=== PATIENT | male | born 1945 | race Caucasian/White ===

== ENCOUNTER 2024-04-19 10:29 | Inpatient (IN) ==
--- NOTE | 2024-04-19 10:46 | Emergency Department Note ---
Impression & Plan Complete heart block, S/P AVR (aortic valve replacement), Syncope ED Provider Note NAME: RADHA HUANG AGE: 79 SEX: M : 1945 ARRIVES VIA: Walk-In INFORMANT: Patient, Family ED PROVIDER(S): Fortunato Pham MD CHIEF COMPLAINT: Syncope MEDICAL DECISION MAKING: Patient presents acutely to B1. The patient was initially able to converse but then had periods of loss of consciousness with perhaps even brief episodes of apnea. Patient did have oxygen applied and a BVM was obtained but the patient's brief periods were brief in nature and the patient was able to breathe on his own. The patient would intermittently come in and out of consciousness and in doing so blood work was ordered IV ordered and and lieu of getting medications that were initially ordered which include atropine calcium and glucagon I did ask that the patient receives a push dose epinephrine and if unable to obtain an IV to get an EpiPen. Patient subsequently did have an IV established. I did initiate external pacemaking as I was directing the resuscitation with staff/nursing initially the patient did have difficulty with capture secondary to diaphoresis and hair around the chest. This was shaved new pads were placed and the patient had subsequent capture and after receiving this in addition to the epinephrine IV the patient did have improvement heart rate and blood pressure. Patient did have some vomiting the patient was rolled to his left side. Patient was beginning to feel improvement. I did send the patient's initial EKG which showed a heart rate of 17 with likely complete heart block to Dr. Dominguez. I subsequently did speak to him the patient was more stabilized and discussed further management. He recommended initiating a heart alert to activate the Document Analyst team for emergency pacemaker. I did convey this to the family as well as the patient. Patient was subsequently taken to the Document Analyst. I subsequently spoke with the on-call hospitalist Dr. Robbins and the patient was admitted to the medicine service. Blood work does show a white count of 14 with hemoglobin 13.5. Platelet count is unremarkable. The patient's kidney function with creatinine 1.69. Initial troponin of 200. TSH elevated but free T4 normal. Lyme negative. Critical Care: I have personally spent 75 minutes of critical care time in direct management of this patient. This includes bedside care, interpretation of diagnostic studies, and testing, discussion with consultants, patient, and family members, and other require inpatient management activities. This 75 minutes is in excess of all separately billable procedures. Procedures: TRANSCUTANEOUS PACEMAKER PROCEDURE NOTE: Transcutaneous Pacemaker Performed by: Dr. Pham Indication: Complete heart block [place] Protocol: a time out was performed and the correct patient and site were verified Consent: [Critical Intervention-implied Procedure: The patient was noted to be in a cardiac rhythm requiring pacing. External transcutaneous pacing electrode pads were applied. Pacing electrical amplitude was increased to the point of capture, verified by resulting QRS complex. Hemodynamic response to pacing was monitored. Complications: None Discussion w/ other healthcare providers: Dr. Dominguez interventional cardiology Dr. Robbins inpatient medicine service Prior /Outside records reviewed: None Differential diagnosis: Vasovagal event, dehydration, infection, hypoglycemia, electrolyte abnormalities, arrhythmia, pulmonary embolism, seizure among others were considered. Diagnostics, as interpreted by me: ECG: Bradycardia ventricular rate of 17, wide QRS, likely third-degree heart block. Cardiac monitoring: An order was placed for continuous cardiac monitoring. The monitor shows a rate of 22 with rhythm. Patient was placed on pulse oximetry Medical decision rules: None Imaging studies: I informally interpreted the patient's chest x-ray does not show obvious pneumonia or pneumothorax with formal report to follow. HPI: Patient presents due to concern for an episode of syncope. The patient acutely felt "shitty" and passed out for a period of time. Patient thus presented here for further evaluation treatment. The patient does have a prior history of aortic valve repair as well as double bypass. The patient denies any current chest pains or shortness of breath. Patient reportedly developed nausea but no vomiting. No falls or trauma. The patient did not wreck his vehicle as the was able to park it. PAST MEDICAL HISTORY: See Below PAST SURGICAL HISTORY: See Below SOCIAL HISTORY: See Below HOME MEDICATIONS: See Below ALLERGIES: See Below VITALS: See Below PHYSICAL EXAMINATION: GENERAL: Ill in appearance, diaphoretic, wearing glasses. EYE EXAM: Normal conjunctiva. PERRL, no anisocoria and EOM's grossly intact w/o pain. OROPHARYNX: Moist mucus membranes, grossly normal dentition. NECK: Trachea midline, no stridor. LUNGS: Clear to auscultation. Normal chest wall mechanics. HEART: Bradycardic, no MRG. ABDOMEN: Abdomen soft, non-tender, no masses, no rebound or guarding. BACK: No CVA TTP. SKIN: No rashes and no bruising. UPPER EXTREMITIES: Upper extremities are grossly normal. LOWER EXTREMITIES: Grossly normal, no edema. NEURO EXAM: A&O x3, cranial nerves II-XII grossly intact, normal speech, moves all 4 extremities. Past Med/Surg History Problem List (Updated 04/19/24 @ 16:44 by Fortunato Pham MD) Syncope (Acute) S/P AVR (aortic valve replacement) (Acute) Peripheral arterial occlusive disease Benign essential hypertension Atherogenic dyslipidemia Diabetes Coronary artery disease Complete heart block (Acute) Social History Smoking Status: Former smoker Tobacco Type: Cigarettes Hx Alcohol Use: Yes Alcohol type: beer Hx Substance Use: No Preferred Language: Latvian Communication Ability: Effective Steamfitter Required: No Beliefs That Will Affect Care: None Current Living Situation: Spouse Feels Safe at Home: Yes Assistive Devices: Cane, Denture - Upper, Denture - Lower, Glasses and Walker Allergies Allergies Allergy/AdvReac Type Severity Reaction Status Date / Time Unable to Assess Allergy Unverified 04/19/24 11:42 Home Meds Home Medications Medication Instructions Recorded Confirmed clopidogrel 75 mg tablet 75 mg PO DAILY 04/19/24 04/19/24 glipizide 10 mg tablet, extended 10 mg PO BID 04/19/24 04/19/24 release 24 hr metformin 1,000 mg tablet 1,000 mg PO BID 04/19/24 04/19/24 metoprolol succinate 25 mg 25 mg PO BID 04/19/24 04/19/24 tablet,extended release 24 hr pioglitazone 30 mg tablet 30 mg PO DAILY 04/19/24 04/19/24 rosuvastatin 20 mg tablet 20 mg PO DAILY 04/19/24 04/19/24 Results & Data (ED) Vital Signs Vital Signs - 24 hr 04/19/24 10:37 04/19/24 10:57 04/19/24 11:09 Pulse Rate 95 H 90 80 Pulse Rate [Right Finger] Pulse Rate from SpO2 Sensor Pulse Rhythm Respiratory Rate 20 16 Respiratory Effort / Characteristics Non-Labored Spontaneous Respiratory Depth Normal Blood Pressure 138/98 Blood Pressure Mean 111 Pulse Oximetry 99 94 Oxygen Delivery Method Room Air Oxygen Flow Rate Sepsis Recent Fever Within 48 Hours No Sepsis New/Unexplained Change in Mental Status N/A Sepsis Action Taken by Nursing No Action Required Oxygen Flow Rate - Titration Pulse Oximetry Post Tiitration 04/19/24 11:09 04/19/24 11:10 04/19/24 11:17 Pulse Rate 80 80 Pulse Rate [Right Finger] 80 Pulse Rate from SpO2 Sensor Pulse Rhythm Respiratory Rate 18 20 16 Respiratory Effort / Characteristics Respiratory Depth Blood Pressure 116/52 L 112/41 L Blood Pressure Mean 73 71 Pulse Oximetry 95 100 100 Oxygen Delivery Method Nasal Cannula Nasal Cannula Nasal Cannula Oxygen Flow Rate 4 6 4 Sepsis Recent Fever Within 48 Hours Sepsis New/Unexplained Change in Mental Status Sepsis Action Taken by Nursing Oxygen Flow Rate - Titration Pulse Oximetry Post Tiitration 04/19/24 11:27 04/19/24 11:28 04/19/24 11:29 Pulse Rate 80 Pulse Rate [Right Finger] Pulse Rate from SpO2 Sensor Pulse Rhythm Irregular Respiratory Rate 16 Respiratory Effort / Characteristics Respiratory Depth Blood Pressure 118/45 L Blood Pressure Mean 76 Pulse Oximetry 100 100 Oxygen Delivery Method Nasal Cannula Nasal Cannula Oxygen Flow Rate 4 6 Sepsis Recent Fever Within 48 Hours Sepsis New/Unexplained Change in Mental Status Sepsis Action Taken by Nursing Oxygen Flow Rate - Titration 4 Pulse Oximetry Post Tiitration 100 04/19/24 11:36 Pulse Rate 80 Pulse Rate [Right Finger] Pulse Rate from SpO2 Sensor 28 L Pulse Rhythm Respiratory Rate 18 Respiratory Effort / Characteristics Respiratory Depth Blood Pressure 141/70 H Blood Pressure Mean 93 Pulse Oximetry 100 Oxygen Delivery Method Nasal Cannula Oxygen Flow Rate 4 Sepsis Recent Fever Within 48 Hours Sepsis New/Unexplained Change in Mental Status Sepsis Action Taken by Nursing Oxygen Flow Rate - Titration Pulse Oximetry Post Tiitration Home Medications Current Medication List: was personally reviewed by me Laboratory Data Attestation: I reviewed the patient's lab results. 04/19/24 11:15 04/19/24 11:37 Lab Results 04/19/24 04/19/24 04/19/24 Range/Units 10:48 11:14 11:15 WBC 14.50 H (4.8-10.8) K/ul RBC 4.52 L (4.70-6.10) M/uL Hgb 13.5 L (14.0-18.0) g/dl Hct 42.1 (42.0-52.0) % MCV 93.1 (80.0-100.0) fL MCH 29.9 (25.0-34.0) pg MCHC 32.1 (32.0-36.0) g/dL RDW Std Deviation 43.8 (36.4-46.3) fL RDW Coeff of Carol 12.8 (11.5-14.5) % Plt Count 239 (130-400) K/uL MPV 10.7 (9.4-12.4) fL Immature Gran % (Auto) 0.8 % Neut % (Auto) 42.4 % Lymph % (Auto) 48.3 % [place] % (Auto) 6.6 % Eos % (Auto) 1.7 % Baso % (Auto) 0.2 % Neut # (Auto) 6.15 (1.40-6.50) K/uL Lymph # (Auto) 7.00 H (1.20-3.40) K/uL [place] # (Auto) 0.96 H (0.11-0.59) K/uL Eos # (Auto) 0.24 (0.00-0.50) K/uL Baso # (Auto) 0.03 (0.00-0.20) K/uL Immature Gran # (Auto) 0.12 (0.01-0.20) K/uL PT (9.0-12.0) Seconds INR (0.9-1.1) APTT (21-31) Seconds PTT Ratio Sodium (136-145) mmol/L Potassium (3.5-5.1) mmol/L Chloride (98-107) mmol/L Carbon Dioxide (21-32) mmol/L Anion Gap (3-11) BUN (6-23) mg/dl Creatinine (0.6-1.4) mg/dl Est Cr Clr Drug Dosing ml/min eGFR BUN/Creatinine Ratio (10-20) Glucose (70-99(Fasting)) mg/dl POC Glucose 245 H 247 H (70-99) mg/dl Calcium (8.6-10.3) mg/dl Phosphorus (2.5-4.9) mg/dl Magnesium (1.7-2.4) mg/dl Total Bilirubin (0.2-1.0) mg/dl AST (13-39) U/L ALT (7-52) U/L Alkaline Phosphatase (34-104) U/L Troponin I High Sens (0-20) pg/ml Total Protein (6.0-8.3) gm/dl Albumin (3.4-5.0) gm/dl Globulin (2.5-4.0) gm/dl Albumin/Globulin Ratio (0.9-2) TSH (0.300-4.500) uIu/ml Free T4 (0.61-1.60) ng/dl Lyme Disease Screen (Negative) 04/19/24 Range/Units 11:37 WBC (4.8-10.8) K/ul RBC (4.70-6.10) M/uL Hgb (14.0-18.0) g/dl Hct (42.0-52.0) % MCV (80.0-100.0) fL MCH (25.0-34.0) pg MCHC (32.0-36.0) g/dL RDW Std Deviation (36.4-46.3) fL RDW Coeff of Carol (11.5-14.5) % Plt Count (130-400) K/uL MPV (9.4-12.4) fL Immature Gran % (Auto) % Neut % (Auto) % Lymph % (Auto) % [place] % (Auto) % Eos % (Auto) % Baso % (Auto) % Neut # (Auto) (1.40-6.50) K/uL Lymph # (Auto) (1.20-3.40) K/uL [place] # (Auto) (0.11-0.59) K/uL Eos # (Auto) (0.00-0.50) K/uL Baso # (Auto) (0.00-0.20) K/uL Immature Gran # (Auto) (0.01-0.20) K/uL PT 11.4 (9.0-12.0) Seconds INR 1.1 (0.9-1.1) APTT 25 (21-31) Seconds PTT Ratio 0.9 Sodium 138 (136-145) mmol/L Potassium 4.5 (3.5-5.1) mmol/L Chloride 105 (98-107) mmol/L Carbon Dioxide 24 (21-32) mmol/L Anion Gap 9 (3-11) BUN 38 H (6-23) mg/dl Creatinine 1.69 H (0.6-1.4) mg/dl Est Cr Clr Drug Dosing 39.7 ml/min eGFR 41.30 BUN/Creatinine Ratio 22.5 H (10-20) Glucose 296 H (70-99(Fasting)) mg/dl POC Glucose (70-99) mg/dl Calcium 9.7 (8.6-10.3) mg/dl Phosphorus 4.2 (2.5-4.9) mg/dl Magnesium 2.8 H (1.7-2.4) mg/dl Total Bilirubin 0.4 (0.2-1.0) mg/dl AST 26 (13-39) U/L ALT 29 (7-52) U/L Alkaline Phosphatase 71 (34-104) U/L Troponin I High Sens 206.0 H* (0-20) pg/ml Total Protein 6.8 (6.0-8.3) gm/dl Albumin 4.3 (3.4-5.0) gm/dl Globulin 2.5 (2.5-4.0) gm/dl Albumin/Globulin Ratio 1.7 (0.9-2) TSH 10.637 H (0.300-4.500) uIu/ml Free T4 0.92 (0.61-1.60) ng/dl Lyme Disease Screen Negative (Negative) Administered Medications Lactated Ringer's (Lr) 1,000 mls @ 15 mls/hr IV .Q24H [facility] Stop: 04/22/24 08:39 Last Admin: 04/19/24 14:31 Dose: Not Given Documented By: ES Discontinued Medications Atropine Sulfate (Atropine Sulfate 0.1 Mg/Ml 10ml Syr) 1 mg IV NOW STA Stop: 04/19/24 10:50 Last Admin: 04/19/24 13:26 Dose: Not Given Documented By: ES Fentanyl Citrate (Fentanyl Citrate Pf 100 Mcg/2 Ml Vial) Confirm Administered Dose 100 mcg .ROUTE .STK-MED ONE Stop: 04/19/24 11:33 Last Increment: 04/19/24 12:39 Dose: 25 mcg Documented By: GERTRUDE Sodium Chloride (Nss) 500 mls @ 999 mls/hr IV .Q31M [facility] Stop: 04/19/24 11:30 Last Infusion: 04/19/24 11:23 Dose: Infused Documented By: [facility] Admin: 04/19/24 11:06 Dose: 999 mls/hr Documented By: [facility] Glucagon 5 mg/ Syringe 5 mls @ 1 mls/min IV NOW ONE Stop: 04/19/24 10:53 Last Admin: 04/19/24 13:27 Dose: Not Given Documented By: ANGELA Calcium Gluconate () 1,000 mg in 60 mls @ 240 mls/hr IV NOW STA Stop: 04/19/24 11:03 Last Infusion: 04/19/24 11:15 Dose: Infused Documented By: [facility] Admin: 04/19/24 11:00 Dose: 240 mls/hr Documented By: [facility] Midazolam HCl (Midazolam Hcl 1 Mg/Ml 2ml Vial) Confirm Administered Dose 2 mg .ROUTE .STK-MED ONE Stop: 04/19/24 11:33 Last Increment: 04/19/24 12:39 Dose: 1 mg Documented By: Bull Miscellaneous (Rapid Sequence Induction Bag) Confirm Administered Dose 1 each N/A .STK-MED ONE Stop: 04/19/24 10:54 Last Admin: 04/19/24 13:27 Dose: Not Given Documented By: ANGELA Reyes ([facility] Protocol For Hyperglycemia) 1 each N/A ACHS [facility] Stop: 04/21/24 16:29 Last Admin: 04/19/24 14:31 Dose: Not Given Documented By: ANGELA Ondansetron HCl (Ondansetron Inj 2 Mg/Ml 2 Ml Vial) Confirm Administered Dose 4 mg .ROUTE .STK-MED ONE Stop: 04/19/24 10:58 Last Admin: 04/19/24 10:58 Dose: 4 mg Documented By: [facility] [place] [facility] Imaging Data Radiologist's Impression: Chest X-Ray 04/19/24 11:28 XR chest 1V portable CLINICAL HISTORY: syncope TECHNIQUE: Single frontal radiograph of the chest was obtained. Comparison: None available at the time of this dictation. FINDINGS: Median sternotomy wires are unchanged. Atrial appendage clip is seen. Cardiomegaly is noted. The aortic arch is calcified. The lungs are clear. No evidence of pleural effusion or pneumothorax. IMPRESSION: No acute chest disease. Cardiomegaly is noted. ACT 112: Negative or not required by law. Electronically signed by: aMt Stratton M.D. 04/19/2024 11:50 AM Discharge Plan Visit Data Chief Complaint: Syncope Stated Complaint: POSSIBLE LOW BLOOD SUGAR, PASSED OUT, VISION ISSUE ED Provider: Fortunato Pham Discharge Problem: Complete heart block, S/P AVR (aortic valve replacement), Syncope Patient Disposition: Admitted As Inpatient Discharge Instructions Interventions: ED Discharge Assessment Last Done: 04/19/24 11:59 Discharge Problem: Syncope Qualifiers: Syncope type: unspecified Qualified Code(s): R55 - Syncope and collapse
[2024-04-19] MEDS: ONDANSETRON INJ 2 MG/ML 2 ML VIAL ONE (10:58)
[2024-04-19] MEDS: CALCIUM GLUCONATE 1,000 MG/60 ML BAG IV STA (11:00)
[2024-04-19] MEDS: SODIUM CHLORIDE 0.9% 500 ML IV SCH (11:06)
[2024-04-19 11:28] LABS: Hematocrit (blood only) 42.1 % (42.0-52.0); Hemoglobin 13.5 g/dl (14.0-18.0); Mean Corpuscular Hemoglobin 29.9 pg (25.0-34.0); Mean Corpuscular Hgb Conc 32.1 g/dL (32.0-36.0); Mean Corpuscular Volume 93.1 fL (80.0-100.0); Mean Platelet Volume 10.7 fL (9.4-12.4); Platelet Count 239 K/uL (130-400); RDW Coefficient of Variation 12.8 % (11.5-14.5); RDW Standard Deviation 43.8 fL (36.4-46.3); Red Blood Count 4.52 M/uL (4.70-6.10)
--- NOTE | 2024-04-19 11:52 | XRay Report ---
XR chest 1V portable CLINICAL HISTORY: syncope TECHNIQUE: Single frontal radiograph of the chest was obtained. Comparison: None available at the time of this dictation. FINDINGS: Median sternotomy wires are unchanged. Atrial appendage clip is seen. Cardiomegaly is noted. The aort ic arch is calcified. The lungs are clear. No evidence of pleural effusion or pneumothorax. IMPRESSION: No acute chest disease. Cardiomegaly is noted. ACT 112: Negative or not required by law. Electronically signed by: Mat Stratton M.D. 04/19/2024 11:50 AM
[2024-04-19 12:00] LABS: Basophils # (auto) 0.03 K/uL (0.00-0.20); Basophils % (auto) 0.2 %; Eosinophils # (auto) 0.24 K/uL (0.00-0.50); Eosinophils % (auto) 1.7 %; Immature Granulocytes # (auto) 0.12 K/uL (0.01-0.20); Immature Granulocytes % (auto) 0.8 %; Lymphocytes % (auto) 48.3 %; Monocytes # (auto) 0.96 K/uL (0.11-0.59); Monocytes % (auto) 6.6 %; Neutrophils # (auto) 6.15 K/uL (1.40-6.50); Neutrophils % (auto) 42.4 %
[2024-04-19 12:08] LABS: Albumin Globulin Ratio 1.7 (0.9-2); Albumin Level 4.3 gm/dl (3.4-5.0); BUN Creatinine Ratio 22.5 (10-20); Bilirubin,Total 0.4 mg/dl (0.2-1.0); Calcium 9.7 mg/dl (8.6-10.3); Creatinine Clr Calc Pharmacy 39.7 ml/min; Globulin 2.5 gm/dl (2.5-4.0); Magnesium 2.8 mg/dl (1.7-2.4); Phosphorus 4.2 mg/dl (2.5-4.9); Potassium 4.5 mmol/L (3.5-5.1); Total Protein 6.8 gm/dl (6.0-8.3)
[2024-04-19 12:21] LABS: INR 1.1 (0.9-1.1); Partial Thromboplastin Ratio 0.9; Partial Thromboplastin Time 25 Seconds (21-31); Prothrombin Time 11.4 Seconds (9.0-12.0)
[2024-04-19 12:24] LABS: Thyroid Stimulating Hormone 10.637 uIu/ml (0.300-4.500)
--- NOTE | 2024-04-19 12:24 | History & Physical Report ---
Date of Service April 19, 2024 Assessment & Plan (1) Complete heart block: Plan: Patient has complete heart block on EKG with a heart rate of about 17. Taken emergently to Outside Plant Technician for temporary pacemaker. Unclear whether coronary arteries will be evaluated that time. Lyme screen was negative (2) Coronary artery disease: Plan: Patient has a history of recent revascularization. Typically taking Plavix metoprolol Takes rosuvastatin for risk factor reduction. Obviously metoprolol be held Plavix will be continued pending cardiology evaluation. Rosuvastatin will be continued (3) Diabetes: Plan: Patient will have his glipizide and pioglitazone held. Will be on insulin sliding scale. He is on a clear liquid diet at this point time till stability is reconciled. Plan Patient will be on heparin for DVT prevention at this time as were not clear what his renal function will do after his brief period of severely reduced heart rate. Patient is a full code History of Present Illness Primary Care Provider: Del Jackson Patient presents with a concern for syncope and he actually lost consciousness briefly in emergency department associated with a brief period of apnea and incontinence of stool. Patient reportedly was feeling poorly and he asked his family to drive him to the hospital where he may have passed out along the way. He has recently had a CABG x 2 and bioprosthetic arctic valve repair at [facility] in August 2023. He follows with Dr. Sahu at [facility]. Currently the patient was revived with an amp of epinephrine. He says he feels better. He denies having any chest pressure or squeezing during the event. He can recall the event and said that his vision was becoming Dim prior to it occurring. The patient is in complete heart block in the emergency department and was taken emergently to the Outside Plant Technician Patient is tentatively slated to be ICU admission for temporary pacemaker. Allergies Allergy/AdvReac Type Severity Reaction Status Date / Time No Known Allergies Allergy Unverified 04/19/24 18:55 Home Medications Medication Instructions Recorded Confirmed Type clopidogrel 75 mg tablet 75 mg PO DAILY 04/19/24 04/19/24 History glipizide 10 mg tablet, extended 10 mg PO BID 04/19/24 04/19/24 History release 24 hr metformin 1,000 mg tablet 1,000 mg PO BID 04/19/24 04/19/24 History metoprolol succinate 25 mg 25 mg PO BID 04/19/24 04/19/24 History tablet,extended release 24 hr pioglitazone 30 mg tablet 30 mg PO DAILY 04/19/24 04/19/24 History rosuvastatin 20 mg tablet 20 mg PO DAILY 04/19/24 04/19/24 History Past Med/Surg History Problem List (Updated 04/20/24 @ 11:56 by Chemo Alvarado MD) CAD (coronary artery disease) Syncope (Acute) S/P AVR (aortic valve replacement) (Acute) Peripheral arterial occlusive disease Benign essential hypertension Atherogenic dyslipidemia Diabetes Coronary artery disease Complete heart block (Acute) Social History Smoking Status: Former smoker Tobacco Type: Cigarettes Hx Alcohol Use: Yes Alcohol type: beer Hx Substance Use: No Preferred Language: Vietnamese Communication Ability: Effective Branch Operations Manager Required: No Beliefs That Will Affect Care: None Current Living Situation: Spouse Feels Safe at Home: Yes Assistive Devices: None Physical Exam Physical Exam: The patient appeared well nourished and normally developed. Vital signs as documented. Head exam is normocephalic atraumatic Neck is without JVD, thyromegaly, or carotid bruits. Lungs are clear to auscultation, no focal loss of breath sounds Cardiac exam, Rhythm is regular.. Systolic ejection murmur. Well-healed sternotomy scar. Abdominal exam reveals normal bowel sounds, soft non tender, no masses Extremities are nonedematous and both pedal pulses are present Neurologic exam is alert and oriented, no focal loss of strength or sensation Skin is without bruises or rashes Psychologically is without concerns for anxiety or depression.. Results & Data Results & Data Vital Signs (Past 12 Hours) Vital Signs Pulse Pulse Resp BP Pulse Ox O2 Del Method O2 Flow Rate 04/19/24 11:36 80 18 141/70 H 100 Nasal Cannula 4 04/19/24 11:29 100 Nasal Cannula 6 04/19/24 11:28 80 16 100 Nasal Cannula 4 04/19/24 11:27 118/45 L 04/19/24 11:17 80 16 112/41 L 100 Nasal Cannula 4 04/19/24 11:10 80 20 100 Nasal Cannula 6 04/19/24 11:09 80 18 116/52 L 95 Nasal Cannula 4 04/19/24 11:09 80 04/19/24 10:57 90 16 138/98 94 04/19/24 10:37 95 H 20 99 Room Air Laboratory Results Reviewed CBC reviewed chemistry reviewed troponin (elevated) reviewed EKG showing complete heart block with concern for some mild ST changes that are elevated PG Care Time/CCT Total # of Minutes Spent Total Time Spent with Patient: Total time spent is greater than 50% in coordination of care (as documented) at patient's floor/unit and/or counseling patient: Coding Level of Care Code 50965 INT INP/OBS CARE 2/55MIN Diagnoses Complete heart block I44.2 Coronary artery disease I25.10 Diabetes E11.9
[2024-04-19] MEDS: MIDAZOLAM HCL 1 MG/ML 2ML VIAL ONE (12:39)
[2024-04-19] MEDS: fentaNYL citrate PF 100 MCG/2 ML VIAL ONE (12:39)
[2024-04-19 12:59] LABS: T4 Free Thyroxine 0.92 ng/dl (0.61-1.60)
--- NOTE | 2024-04-19 13:11 | Pre Anesthesia Assessment ---
Date of Service April 19, 2024 Pre Sedation Assessment Vital Signs Pulse Pulse Resp BP Pulse Ox O2 Del Method O2 Flow Rate 04/19/24 11:36 80 18 141/70 H 100 Nasal Cannula 4 04/19/24 11:29 100 Nasal Cannula 6 04/19/24 11:28 80 16 100 Nasal Cannula 4 04/19/24 11:27 118/45 L 04/19/24 11:17 80 16 112/41 L 100 Nasal Cannula 4 04/19/24 11:10 80 20 100 Nasal Cannula 6 04/19/24 11:09 80 18 116/52 L 95 Nasal Cannula 4 04/19/24 11:09 80 04/19/24 10:57 90 16 138/98 94 04/19/24 10:37 95 H 20 99 Room Air Cardiovascular Additional Comments: Bradycardia. Systolic murmur Respiratory normal respiratory effort, lungs clear to auscultation Pre-Sedation Airway Assessment Smoking Status: Former smoker Mallampati class III ASA class IV Notes The planned sedation has been discussed with the patient. Informed Consent was obtained. I have identified the patient, determined the appropriateness of sedation and have assessed the patient immediately prior to the procedure. All medicine(s) and interventions are by my order. [facility] Procedure Codes (Charges) Indication for Procedure Indication for procedure: Complete heart block
--- NOTE | 2024-04-19 13:24 | Post Anesthesia Assessment ---
Date of Service April 19, 2024 Post Sedation Assessment Vital Signs Temp Pulse Pulse Resp BP BP Pulse Ox 04/19/24 12:59 36.5 C 78 15 148/78 H 98 04/19/24 11:36 80 18 141/70 H 100 04/19/24 11:29 100 04/19/24 11:28 80 16 100 04/19/24 11:27 118/45 L 04/19/24 11:17 80 16 112/41 L 100 04/19/24 11:10 80 20 100 04/19/24 11:09 80 18 116/52 L 95 04/19/24 11:09 80 04/19/24 10:57 90 16 138/98 94 04/19/24 10:37 95 H 20 99 O2 Del Method O2 Flow Rate 04/19/24 12:59 Room Air 04/19/24 11:36 Nasal Cannula 4 04/19/24 11:29 Nasal Cannula 6 04/19/24 11:28 Nasal Cannula 4 04/19/24 11:27 04/19/24 11:17 Nasal Cannula 4 04/19/24 11:10 Nasal Cannula 6 04/19/24 11:09 Nasal Cannula 4 04/19/24 11:09 04/19/24 10:57 04/19/24 10:37 Room Air Recovery Score Activity: Moves 4 extremities Respiration: Deep Breath/Cough Circulation: +/-20% PreAnes Value Consciousness: Fully Awake Oxygen Saturation: > 92% On Room Air Discharge Sedation Level of Care: Fast Track Phase II Post Sedation Plan On clinical assessment, the patient appears to have tolerated the sedation wi thout complications. Patient is recovering as anticipated. Patient will continue to be monitored by nursing and may be discharged when sedation discharge criteria are met per below protocol. Upon Completions of procedure up to 15 minutes continue every 5 minute vital signs and the P.A.R. score; then discharge to a Phase I or Fast Track to Phase II per the following guidelines: * Discharge Patient to appropriate Phase II area if PAR is 8 or greater or return to pre- procedure baseline. The post - procedure orders will be as directed. * If PAR score is less than 8 or not return to pre-procedure baseline then patient will follow Phase I monitoring till PAR is reached for Phase II. The Phase I may be done in procedure room or may call to secure a Phase I area. * If naloxone or flumazenil are used for reversal, hold in Phase I for continued monitoring from when last reversal dose was given for a minimum of 60 minutes or longer pending the nurse and/or physician discretion of patient condition before discharge to Phase II. Please call the Sedation Physician to re-evaluate and complete post-note for discharge to Phase II area. Do NOT discharge from procedure sedation or Phase 1 until post- sedation evaluation note is complete by procedure /sedation MD Sedation Discharge Instructions to be given to the patient at discharge to home. [facility] Procedure Codes (Charges) Indication for Procedure Indication for procedure: Complete heart block Sedation/Anesthesia Procedure 1: Sedation/Anesthesia: 50287 Mod Sedation by the same physician;Init15 Min Child Age 5 & Up (Initial 15-minute, start time 1202) Total Sedation Time (minutes): 33 Procedure 2: Sedation/Anesthesia: 76604 Mod Sedation by the same physician; Ea [id number] Minutes (Additional 18 min, end time 1235) Total Sedation Time (minutes): 33
[2024-04-19] MEDS: ATROPINE SULFATE 0.1 MG/ML 10ML SYR IV STA (13:26)
[2024-04-19] MEDS: GLUCAGON 5 MG in SYRINGE 0 ML IV ONE (13:27)
[2024-04-19] MEDS: RAPID SEQUENCE INDUCTION BAG ONE (13:27)
--- OUTSIDE RECORDS SUMMARY | 2024-04-19 13:31 | External Medical Summary | Continuity of Care Document ---
Author Name Unknown Organization [facility] [address] Address [address] [place] [id number] Care Team Providers Care Detective Bowling Alley Name Role Phone Del Jackson Primary Care Physician [phone] [facility] [id number] Date(s): 12/17/23 - 12/17/23 [facility] [address] [facility] [address] [facility], [address] [place] [id number] [phone] Encounter Diagnosis Postoperative atrial fibrillation(Discharge Diagnosis) - 12/17/23 Mobitz type 2 second degree AV block(Discharge Diagnosis) - 12/17/23 Discharge Disposition: Home or Self Care Attending Physician: MD Reinier, Max Alarcon Referring Physician: MD Jackson Jeffrey R Allergies, Adverse Reactions, Alerts Substance Criticality Severity Reaction Reaction Severity Status simvastatin Leg pain Active gabapentin Loose stools Active OxyCONTIN Unable to assess criticality Moderate Altered behavior Rash Active Medications Aspir 81 oral delayed release tablet Start: 08/29/23 3:44:00 PM EST, 81 mg =, PO, Daily, Disp# 30 tab, Refills: 3, Pharmacy: [facility] Start Date: 08/29/23 Stop Date: 12/27/23 Status: Ordered clopidogrel 75 mg oral tablet Start: 11/18/23 2:58:00 PM EDT, 1 tab, PO, Daily, Disp# 90 tab, Refills: 3, Pharmacy: [id number] Start Date: 11/18/23 Status: Ordered glipiZIDE 10 mg oral tablet, extended release Start: 09/13/23 7:58:00 AM EDT, 180 tab, 0 Refill(s) Start Date: 09/13/23 Status: Ordered magnesium gluconate 500 mg oral tablet Start: 08/14/21 10:00:00 AM EST, 2 tab, PO, Daily Start Date: 08/14/21 Status: Ordered metFORMIN 1000 mg oral tablet Start: 02/14/16 8:46:00 AM EDT, 1 tab, PO, bid Start Date: 02/14/16 Status: Ordered pioglitazone 15 mg oral tablet Start: 09/13/23 8:20:00 AM EDT, 1 tab, PO, Daily, Disp# 30 tab, Refills: 11, Pharmacy: [id number] Start Date: 09/13/23 Stop Date: 09/07/24 Status: Ordered rosuvastatin 20 mg oral tablet Start: 12/17/23 9:03:00 AM EDT, 1 tab, PO, Daily, Disp# 90 tab, Refills: 3, Note to Pharmacy: To stop provastatin, Pharmacy: [id number] Start Date: 12/17/23 Stop Date: 12/11/24 Status: Ordered Toprol-XL 25 mg oral tablet, extended release Start: 12/17/23 9:02:00 AM EDT, 1 tab, PO, bid, Disp# 180 tab, Refills: 3, Note to Pharmacy: Change in formulation, Pharmacy: [id number] Start Date: 12/17/23 Stop Date: 12/11/24 Status: Ordered triamcinolone 0.025% topical ointment Start: 12/11/23 10:31:00 AM EDT, 1 appl, topical, bid, Disp# 60 g, Refills: 2, Pharmacy: [id number] Start Date: 12/11/23 Stop Date: 03/10/24 Status: Ordered Mental Status 12/17/23 Barriers to Learning one year Vision imp airment Mandatory Health Literacy Documentation Yes Communication Barrier Present No Health Literacy Communication Barriers N ever Primary Language Yi Problem List Condition Confirmation Course Effective Dates Status H ealth Status Informant LORE positive Confirmed Active Aortic stenosis with bicuspid valve Confirmed Active Atrial hypertrophy, septal Confirmed Active Stage 3 chronic kidney disease Confirmed Active Coronary artery disease involving grayling heart Confirmed Active Grade II diastolic dysfunction Confirmed Active Dyslipidemia Confirmed Active Male erectile disorder Confirmed Active Essential hypertension Confirmed Active Hypertension with heart disease Confirmed Active S/P CABG x 2 Confirmed Active Status post aortic valve replacement with tissue Confirmed Active Type 2 diabetes mellitus with hyperglycemia Confirmed Active Left ventricular hypertrophy Confirmed Active Diabetic peripheral neuropathy associated with type 2 diabetes mellitus Confirmed Active Peripheral vascular disease Confirmed Active Severe aortic stenosis Confirmed Active 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 Elevated TSH Confirmed Active Type II diabetes mellitus with complication Confirmed Active Diagnosis Diagnosis Type Effective Dates Health Status Clinical Service Informant Postoperative atrial fibrillation Discharge Diagnosis 12/17/23 Mobitz type 2 second degree AV block Discharge Diagnosis 12/17/23 Procedures Procedure Date Related Diagnosis Body Site Status Cardiac surgery 1 08/23/23 Complet ed Carotid artery Completed Carpal tunnel, right Comp leted 1heart Vital Signs Most recent to oldest [Reference Range]: 1 Temperature [36.5-37.9 DegC] 36.6 DegC (12/17/23 8:47 AM) Heart Rate 69 bpm (12/17/23 8:47 AM) Blood Pressure 160/70mmHg (12/17/23 8:47 AM) Cuff Pulse Pressure 90 mmHg (12/17/23 8:47 AM) BP Location # 1 Right Arm (12/17/23 8:47 AM) Social History Social History Type Response Smoking Status Former Smoker, quit > 1 yr Sex Male Implantable Device List Procedure Provider Procedure Date Device Type Site Unknown Unknown 08/23/23 Unknown Unknown Device Identifier Serial Number Lot or Batch Number Manufacturing Date Expiration Date Distinct Identification Code MRI Safety Implantable Status Assigning Authority Unknown Unknown [id number] Unknown 05/31/26 Unknown Unknown Active Unkn own Unknown Unknown N/A Unknown 02/21/26 Unknown Unknown Active Unkn own Patient Care team information Care Team Personnel Name: MD Jackson Jeffrey R Position: Physician - Family Med Member Role: Primary Care Provider Address: Address: [address] [place] [address] Name: Chrissy Veloz Ashley Position: Pharmacist Schedule II Member Role: Pharmacy - Lifetime Name: Chrissy Mckee Brittani Position: Pharmacist Schedule II Member Role: Pharmacy - Lifetime Care Team Related Persons Name: ANDREW HUANG Address: home [address] [place] [phone] Name: ANDREW HUANG Address: home [address] [place] [phone]
--- OUTSIDE RECORDS SUMMARY | 2024-04-19 13:31 | External Medical Summary ---
Author Name Unknown Address Unknown Organization [facility] [address] [place] [address] Laboratory Report Ordering Provider Test Date Status Manuel Mathis 12/05/2023 07:16:00 Final Requested Timeframe In 3 Mon ths Observation Date Value Abnormality Reference (Units ) Status Glucose [Mass/volume] in Serum or Plasma 12/05/2023 14:10:05 118 Above high normal 50-99 (mg/dL) Final The Reference Range listed i s for fasting blood Glucose only. Urea nitrogen [Mass/volume] in Serum or Plasma 12/05/2023 14:10:05 32 Above high normal 8-25 (mg/dL) Final Urea nitrogen/Creatinine [Mass Ratio] in Serum or Plasma 12/05/2023 14:10:05 22 Above high normal 10-20 Final Creatinine [Mass/volume] in Serum or Plasma 12/05/2023 14:10:05 1.44 Above high normal 0.45-1.10 (mg/dL) Final eGFR is calculated by the CK D-EPI
Creatinine equation (2020). *
eGFR
(mL/min/1.73) Category/Term
>or= 90 G1/Normal or high
60-89 G2/Mildly Decreased
45-59 G3a/Mildly to moderately decreased
30-44 G3b/Moderately to severely decreased
15-29 G4/Severely decreased
<15 G5/Kidney Failure
*Note New 2020 equation. For more information on GFR and estimating equations,
visit: http://www.kidney.org/professionals/kdoqi/gfr.cfm Glomerular filtration rate/1.73 sq M.predicted [Volume Rate/Area] in Serum, Plasma or Blood by Creatinine-based formula (CKD-EPI) 12/05/2023 14:10:06 50 Below low normal >=60 (mL/min/1.73 m2) Final Sodium [Moles/volume] in Serum or Plasma 12/05/2023 14:10:05 136 132-145 (mmol/L) Final Potassium [Moles/volume] in Serum or Plasma 12/05/2023 14:10:05 5.0 3.5-5.1 (mmol/L) Final Chloride [Moles/volume] in Serum or Plasma 12/05/2023 14:10:05 101 97-109 (mmol/L) Final Bicarbonate [Moles/volume] in Plasma 12/05/2023 14:10:05 27.0 22.0-29.0 (mmol/L) Final Anion gap 3 in Serum or Plasma 12/05/2023 14:10:05 8 5-15 (mmol/L) Final Osmolality of Serum or Plasma by calculation 12/05/2023 14:10:05 280 275-300 (mOsm/kg) Final Calcium [Mass/volume] in Serum or Plasma 12/05/2023 14:10:05 9.3 8.5-10.5 (mg/dL) Final Protein [Mass/volume] in Serum or Plasma 12/05/2023 14:10:05 7.1 5.4-8.0 (g/dL) Final Albumin [Mass/volume] in Serum or Plasma by Bromocresol green (BCG) dye binding method 12/05/2023 14:10:05 4.5 2.9-4.6 (g/dL) Final Bilirubin.total [Mass/volume] in Serum or Plasma 12/05/2023 14:10:05 0.4 0.2-1.2 (mg/dL) Final Aspartate aminotransferase [Enzymatic activity/volume] in Serum or Plasma 12/05/2023 14:10:05 20 7-40 (unit/L) Final Alanine aminotransferase [Enzymatic activity/volume] in Serum or Plasma 12/05/2023 14:10:05 16 10-60 (unit/L) Final Alkaline phosphatase [Enzymatic activity/volume] in Serum or Plasma 12/05/2023 14:10:05 74 40-180 (unit/L) Final Performing Location [facility] [address] [place] [id number]
--- OUTSIDE RECORDS SUMMARY | 2024-04-19 13:31 | External Medical Summary ---
Author Name Unknown Address Unknown Organization [facility] [address] [place] [address] Laboratory Report Ordering Provider Test Date Status Manuel Mathis 03/10/2024 08:05:00 Final Observation Date Value Abnormality Reference (Units ) Status Leukocytes [#/volume] in Blood by Automated count 03/10/2024 13:12:49 7.10 3.85-10.15 (K/uL) Final Erythrocytes [#/volume] in Blood by Automated count 03/10/2024 13:12:49 4.54 4.14-5.52 (M/uL) Final Hemoglobin [Mass/volume] in Blood 03/10/2024 13:12:49 13.7 13.3-16.2 (g/dL) Final Hematocrit [Volume Fraction] of Blood by Automated count 03/10/2024 13:12:49 42.4 39.0-48.0 (%) Final MCV [Entitic volume] by Automated count 03/10/2024 13:12:49 93.4 81.5-98.6 (fL) Final MCH [Entitic mass] by Automated count 03/10/2024 13:12:49 30.2 27.8-33.0 (pg) Final MCHC [Mass/volume] by Automated count 03/10/2024 13:12:49 32.3 32.3-36.7 (g/dL) Final Erythrocyte distribution width [Ratio] by Automated count 03/10/2024 13:12:49 12.2 11.4-15.0 (%) Final Platelets [#/volume] in Blood by Automated count 03/10/2024 13:12:49 249 160-400 (K/uL) Final Erythrocyte distribution width [Entitic volume] by Automated count 03/10/2024 13:12:49 41.7 36.4-46.3 (fL) Final Platelet mean volume [Entitic volume] in Blood by Automated count 03/10/2024 13:12:49 10.0 7.0-10.3 (fL) Final Nucleated erythrocytes/100 cells in Bone marrow by Manual count 03/10/2024 13:12:49 0.0 0.0-1.0 (%) Final Nucleated erythrocytes [#/volume] in Blood by Manual count 03/10/2024 13:12:49 0.00 (K/uL) Final Performing Location [facility] [address] [place] [address]
--- OUTSIDE RECORDS SUMMARY | 2024-04-19 13:31 | External Medical Summary | Continuity of Care Document ---
Author Name Unknown Organization [facility] [address] [place] [id number] Care Team Providers Care Remittance Clerk Name Role Phone Del Jackson Primary Care Physician [phone] Encounter [facility] [id number] Date(s): 03/23/24 - 03/23/24 [facility] [address] [facility] - [address], [address], [address] [place] [address] [phone] Encounter Diagnosis Body mass index [BMI] 26.0-26.9, adult(Discharge Diagnosis) - 03/23/24 Coronary artery disease involving [place] heart(Discharge Diagnosis) - 03/23/24 Discharge Disposition: Home or Self Care Attending Physician: MD More Mark Referring Physician: MD Jackson Jeffrey R Allergies, Adverse Reactions, Alerts Substance Criticality Severity Reaction Reaction Severity Status simvastatin Leg pain Active gabapentin Loose stools Active OxyCONTIN Unable to assess criticality Moderate Altered behavior Rash Active Medications Aspir 81 oral delayed release tablet Start: 08/29/23 3:44:00 PM EST, 81 mg =, PO, Daily, Disp# 30 tab, Refills: 3, Pharmacy: [facility] Start Date: 08/29/23 Stop Date: 12/27/23 Status: Ordered clopidogrel 75 mg oral tablet Start: 11/18/23 2:58:00 PM EDT, 1 tab, PO, Daily, Disp# 90 tab, Refills: 3, Pharmacy: [id number] Start Date: 11/18/23 Status: Ordered [...] PO, bid Start Date: 02/14/16 Status: Ordered One Touch Delica Plus (33G) Lancets Start: 03/16/24 9:10:00 AM EDT, See Instructions, Disp# 200 each, Refills: 3, check blood glucose 2xper day and as needed for concerns of hypo or hyperglycemia, Pharmacy: [id number] Start Date: 03/16/24 Status: Ordered One Touch Verio Flex Glucose Monitor Start: 03/16/24 9:10:00 AM EDT, See Instructions, Disp# 1 each, Refills: 1, for use 2 times per day,Note to Pharmacy: Dispense as written, Pharmacy: [id number] Start Date: 03/16/24 Status: Ordered One Touch Verio Test Strips Start: 03/16/24 9:10:00 AM EDT, See Instructions, Disp# 200 each, Refills: 3, check blood glucose 2xper day and as needed for concerns of hypo or hyperglycemia, Pharmacy: [facility] Start Date: 03/16/24 Status: Ordered pioglitazone 15 mg oral tablet Start: 09/13/23 8:20:00 AM EDT, 1 tab, PO, Daily, Disp# 30 tab, Refills: 11, Pharmacy: [id number] Start Date: 09/13/23 Stop Date: 09/07/24 Status: Ordered rosuvastatin 20 mg oral tablet Start: 12/17/23 9:03:00 AM EDT, 1 tab, PO, Daily, Disp# 90 tab, Refills: 3, Note to Pharmacy: To stop provastatin, Pharmacy: [facility] Start Date: 12/17/23 Stop Date: 12/11/24 Status: Ordered Toprol-XL 25 mg oral tablet, extended release Start: 12/17/23 9:02:00 AM EDT, 1 tab, PO, bid, Disp# 180 tab, Refills: 3, Note to Pharmacy: Change in formulation, Pharmacy: [id number] Start Date: 12/17/23 Stop Date: 12/11/24 Status: Ordered triamcinolone 0.025% topical ointment Start: 12/11/23 10:31:00 AM EDT, 1 appl, topical, bid, Disp# 60 g, Refills: 2, Pharmacy: [id number] Start Date: 12/11/23 Stop Date: 03/10/24 Status: Ordered Mental Status 03/23/24 Barriers to Learning one year Vision imp airment Mandatory Health Literacy Documentation Yes Health Literacy Communication Barriers N ever Primary Language Senegalese Problem List Condition Confirmation Course Effective Dates Status H ealth Status Informant LORE positive Confirmed Active Aortic stenosis with bicuspid valve Confirmed Active Atrial hypertrophy, septal Confirmed Active Stage 3 chronic kidney disease Confirmed Active Coronary artery disease involving [place] heart Confirmed Active Grade II diastolic dysfunction [...] Diagnosis Diagnosis Type Effective Dates Health Status Cl inical Service Informant Body mass index [BMI] 26.0-26.9, adult Discharge Diagnosis 03/23/24 Non-Specified Coronary artery disease involving [place] heart Discharge Diagnosis 03/23/24 Non-Specified Procedures Procedure Date Related Diagnosis Body Site Status Cardiac surgery 1 08/23/23 Complet ed Carotid artery Completed Carpal tunnel, right Comp leted 1heart Vital Signs Most recent to oldest [Reference Range]: 1 Height 177 cm (03/23/24 11:06 AM) Patient Weight 83.7 kg (03/23/24 11:06 AM) Body Mass Index 26.72 kg/m2 (03/23/24 11:06 AM) Temperature [36.5-37.9 DegC] 36.5 DegC (03/23/24 11:06 AM) Heart Rate 64 bpm (03/23/24 11:06 AM) Respiratory Rate 14 br/min (03/23/24 11:06 AM) Blood Pressure 150/70mmHg (03/23/24 11:06 AM) Cuff Pulse Pressure 80 mmHg (03/23/24 11:06 AM) BP Location # 1 Right Arm, Other: unable to get a bp in the left arm (03/23/24 11:06 AM) Social History Social History Type Response Smoking Status Never smoked cigaret hedy Sex Male Sex Representation Male (finding) Implantable Device List Procedure Provider Procedure Date Device Type Site Unknown Unknown 08/23/23 Unknown Unknown Device Identifier Serial Number Lot or Batch Number Manufacturing Date Expiration Date Distinct Identification Code MRI Safety Implantable Status Assigning Authority Unknown Unknown [id number] Unknown 05/31/26 Unknown Unknown Active Unkn own Unknown Unknown N/A Unknown 02/21/26 Unknown Unknown Active Unkn own Patient Care team information Care Team Personnel Name: MD Jackson Jeffrey R Position: Physician - Family Med Member Role: Primary Care Provider Address: [address] [place] [address] Name: Chrissy Mckee Brittani Position: Pharmacist Member Role: Pharmacy - Lifetime Care Team Related Persons Name: ANDREW HUANG Name: ANDREW HUANG
--- OUTSIDE RECORDS SUMMARY | 2024-04-19 13:31 | External Medical Summary ---
Author Name Unknown Address Unknown Organization [facility] [address] [place] [address] Laboratory Report Ordering Provider Test Date Status [...] 14:10:05 74 40-180 (unit/L) Final Performing Location [facility] [address] [place] [id number]
--- OUTSIDE RECORDS SUMMARY | 2024-04-19 13:31 | External Medical Summary ---
Author Name Unknown Address Unknown Organization [facility] [address] [place] [address] Laboratory Report Ordering Provider Test Date Status Manuel Mathis 12/05/2023 07:16:00 Final Observation Date Value Abnormality Reference (Units ) Status Neutrophils/100 leukocytes in Blood by Automated count 12/05/2023 13:32:58 40.4 (%) Final Lymphocytes/100 leukocytes in Blood by Automated count 12/05/2023 13:32:58 49.4 (%) Final Monocytes/100 leukocytes in Blood by Automated count 12/05/2023 13:32:58 7.3 (%) Final Eosinophils/100 leukocytes in Blood by Automated count 12/05/2023 13:32:58 2.5 (%) Final Basophils/100 leukocytes in Blood by Automated count 12/05/2023 13:32:58 0.1 (%) Final Immature granulocytes/100 leukocytes in Blood 12/05/2023 13:32:58 0.3 (%) Final Neutrophils [#/volume] in Blood by Automated count 12/05/2023 13:32:58 2.90 1.52-6.68 (K/uL) Final Lymphocytes [#/volume] in Blood by Automated count 12/05/2023 13:32:58 3.54 Above high normal 1.10-3.30 (K/uL) Final Monocytes [#/volume] in Blood by Automated count 12/05/2023 13:32:58 0.52 0.22-0.78 (K/uL) Final Eosinophils [#/volume] in Blood by Automated count 12/05/2023 13:32:58 0.18 0.00-0.40 (K/uL) Final Basophils [#/volume] in Blood by Automated count 12/05/2023 13:32:58 0.01 0.00-0.05 (K/uL) Final Immature granulocytes [#/volume] in Blood by Automated count 12/05/2023 13:32:58 0.02 0.00-0.03 (K/uL) Final Performing Location [facility] [address] [place] [address]
--- OUTSIDE RECORDS SUMMARY | 2024-04-19 13:31 | External Medical Summary ---
Author Name Unknown Address Unknown Organization [facility] [address] [email or web address] Laboratory Report Ordering Provider Test Date Status Manuel Mathis 12/05/2023 07:16:00 Final Requested Timeframe In 3 Mon ths Observation Date Value Abnormality Reference (Units ) Status Cholesterol [Mass/volume] in Serum or Plasma 12/05/2023 14:10:05 249 Above high normal 100-200 (mg/dL) Final Metamizole (Dipyrone) may fa lsely lower test results. Cholesterol in HDL [Mass/volume] in Serum or Plasma 12/05/2023 14:10:05 36 35-85 (mg/dL) Final Triglyceride [Mass/volume] in Serum or Plasma 12/05/2023 14:10:05 356 Above high normal 30-190 (mg/dL) Final Metamizole (Dipyrone) may fa lsely lower test results. Cardiac heart disease risk [Ratio] in Serum or Plasma 12/05/2023 14:10:05 6.92 Above high normal 0. 00-4.49 Final 1.4 times the average risk o f CHD Cholesterol in LDL [Mass/volume] in Serum or Plasma by calculation 12/05/2023 14:10:05 142 Above high normal 0-99 (m g/dL) Final Performing Location [facility] [address] [email or web address]
--- OUTSIDE RECORDS SUMMARY | 2024-04-19 13:31 | External Medical Summary ---
Author Name Unknown Address Unknown Organization [facility] [address] [place] [address] Laboratory Report Ordering Provider Test Date Status Manuel Mathis 03/10/2024 08:05:00 Final Observation Date Value Abnormality Reference (Units ) Status Neutrophils/100 leukocytes in Blood by Automated count 03/10/2024 13:12:49 50.7 (%) Final Lymphocytes/100 leukocytes in Blood by Automated count 03/10/2024 13:12:49 39.6 (%) Final Monocytes/100 leukocytes in Blood by Automated count 03/10/2024 13:12:49 7.5 (%) Final Eosinophils/100 leukocytes in Blood by Automated count 03/10/2024 13:12:49 1.7 (%) Final Basophils/100 leukocytes in Blood by Automated count 03/10/2024 13:12:49 0.1 (%) Final Immature granulocytes/100 leukocytes in Blood 03/10/2024 13:12:49 0.4 (%) Final Neutrophils [#/volume] in Blood by Automated count 03/10/2024 13:12:49 3.60 1.52-6.68 (K/uL) Final Lymphocytes [#/volume] in Blood by Automated count 03/10/2024 13:12:49 2.81 1.10-3.30 (K/uL) Final Monocytes [#/volume] in Blood by Automated count 03/10/2024 13:12:49 0.53 0.22-0.78 (K/uL) Final Eosinophils [#/volume] in Blood by Automated count 03/10/2024 13:12:49 0.12 0.00-0.40 (K/uL) Final Basophils [#/volume] in Blood by Automated count 03/10/2024 13:12:49 0.01 0.00-0.05 (K/uL) Final Immature granulocytes [#/volume] in Blood by Automated count 03/10/2024 13:12:49 0.03 0.00-0.03 (K/uL) Final Performing Location [facility] [address] [place]
--- OUTSIDE RECORDS SUMMARY | 2024-04-19 13:31 | External Medical Summary ---
Author Name Unknown Address Unknown Organization [facility] [address] [place] ST[place] Laboratory Report Ordering Provider Test Date Status Manuel Mathis 03/10/2024 08:05:00 Final Observation Date Value Abnormality Reference (Units ) Status Hemoglobin A1c/Hemoglobin.total in Blood by Electrophoresis 03/10/2024 14:46:20 7.2 Above high normal 4.0-5.6 (%) Final The Hgb A1c test measures th e average blood glucose and diabetes
is diagnosed at an A1c of greater than or equal to 6.5%

Normal A1c Less than 5.7 %
Prediabetes 5.7 to 6.4 %
Diabetes 6.5 % or higher

[place] [employer], Understanding A1C DOI: October 2022 Glucose mean value [Mass/vol ume] in Blood Estimated from glycated hemoglobin 03/10/2024 14:46:20 160 (mg/dL) Final Estimated Average Glucose is a calculated value from HbA1c and is bilingual call center representative of the average blood glucose level in the last 4 month period. The calculation is based on the relationship derived in the ADAG study ([id number]), using NGSP referenced HbA1c levels.
Decreased RBC survival will result in lower eAG results. Causes include anemia, hemolytic disease, renal or hepatic disease, and certain hemoglobinopathies. Kim ESTRADA, December 2018 Performing Location [facility] [address] [place]
--- OUTSIDE RECORDS SUMMARY | 2024-04-19 13:31 | External Medical Summary ---
Author Name Unknown Address Unknown Organization [facility] [address] [place] [address] Laboratory Report Ordering Provider Test Date Status Manuel Mathis 12/05/2023 07:16:00 Final Observation Date Value Abnormality Reference (Units ) Status Leukocytes [#/volume] in Blood by Automated count 12/05/2023 13:32:58 7.17 3.85-10.15 (K/uL) Final Erythrocytes [#/volume] in Blood by Automated count 12/05/2023 13:32:58 4.63 4.14-5.52 (M/uL) Final Hemoglobin [Mass/volume] in Blood 12/05/2023 13:32:58 13.9 13.3-16.2 (g/dL) Final Hematocrit [Volume Fraction] of Blood by Automated count 12/05/2023 13:32:58 43.3 39.0-48.0 (%) Final MCV [Entitic volume] by Automated count 12/05/2023 13:32:58 93.5 81.5-98.6 (fL) Final MCH [Entitic mass] by Automated count 12/05/2023 13:32:58 30.0 27.8-33.0 (pg) Final MCHC [Mass/volume] by Automated count 12/05/2023 13:32:58 32.1 Below low normal 32.3-36.7 (g/dL) Final Erythrocyte distribution width [Ratio] by Automated count 12/05/2023 13:32:58 12.9 11.4-15.0 (%) Final Erythrocyte distribution width [Entitic volume] by Automated count 12/05/2023 13:32:58 43.8 36.4-46.3 (fL) Final Platelets [#/volume] in Blood by Automated count 12/05/2023 13:32:58 239 160-400 (K/uL) Final Platelet mean volume [Entitic volume] in Blood by Automated count 12/05/2023 13:32:58 10.3 7.0-10.3 (fL) Final Nucleated erythrocytes/100 cells in Bone marrow by Manual count 12/05/2023 13:32:58 0.0 0.0-1.0 (%) Final Nucleated erythrocytes [#/volume] in Blood by Manual count 12/05/2023 13:32:58 0.00 (K/uL) Final Performing Location [facility] [address] [place] [address]
--- OUTSIDE RECORDS SUMMARY | 2024-04-19 13:31 | External Medical Summary | Continuity of Care Document ---
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) - 12/05/23 S/P CABG x 2(Discharge Diagnosis) - 12/05/23 Aortic stenosis with bicuspid valve(Discharge Diagnosis) - 12/05/23 Status post aortic valve replacement with tissue(Discharge Diagnosis) - 12/05/23 Essential hypertension(Discharge Diagnosis) - 12/05/23 Discharge Disposition: Home or Self Care Attending Physician: MD Jackson Jeffrey R Referring Physician: MD Jackson Jeffrey R Allergies, Adverse Reactions, Alerts Substance Criticality Severity Reaction Reaction Severity Status simvastatin Leg pain Active gabapentin Loose stools Active OxyCONTIN Unable to assess criticality Moderate Altered behavior Rash Active Medications Aspir 81 oral delayed release tablet Start: 08/29/23 3:44:00 PM EST, 81 mg =, PO, Daily, Disp# 30 tab, Refills: 3, Pharmacy: [facility] Start Date: 08/29/23 Stop Date: 12/27/23 Status: Ordered Bumex 1 mg oral tablet Start: 10/08/23 1:14:00 PM EDT, 2 tab, PO, Daily, Disp# 60 tab, Refills: 3, Pharmacy: [id number] Start Date: 10/08/23 Stop Date: 02/05/24 Status: Ordered clopidogrel 75 mg oral tablet Start: 10/21/23 12:28:00 PM EDT, 1 tab, PO, Daily, Disp# 30 tab, Refills: 0, Note to Pharmacy: Refills to be given by [employer] worker, Pharmacy: [id number] Start Date: 10/21/23 Stop Date: 11/20/23 Status: Ordered clopidogrel 75 mg oral tablet Start: 11/18/23 2:58:00 PM EDT, 1 tab, PO, Daily, Disp# 90 tab, Refills: 3, Pharmacy: [id number] Start Date: 11/18/23 Status: [...] PO, bid Start Date: 02/14/16 Status: Ordered metoprolol tartrate 25 mg oral tablet Start: 08/29/23 3:45:00 PM EST, 0.5 tab, PO, bid, Disp# 30 tab, Refills: 3, Pharmacy: [facility] Start Date: 08/29/23 Stop Date: 12/27/23 Status: Ordered pantoprazole 40 mg oral delayed release tablet Start: 08/29/23 3:46:00 PM EST, 1 tab, PO, Daily, Disp# 30 tab, Refills: 0, Pharmacy: [facility] Start Date: 08/29/23 Stop Date: 09/28/23 Status: Ordered pioglitazone 15 mg oral tablet Start: 09/13/23 8:20:00 AM EDT, 1 tab, PO, Daily, Disp# 30 tab, Refills: 11, Pharmacy: [id number] Start Date: 09/13/23 Stop Date: 09/07/24 Status: Ordered potassium chloride 20 mEq oral tablet, extended release Start: 09/04/23 10:07:00 AM EST, 1 tab, PO, Daily, Disp# 30 tab, Refills: 11, PRN: see order comments, Pharmacy: [id number] Start Date: 09/04/23 Stop Date: 11/27/23 Status: Ordered pravastatin 40 mg oral tablet Start: 08/29/23 3:45:00 PM EST, 1 tab, PO, qhs, Disp# 30 tab, Refills: 3, Pharmacy: [facility] Start Date: 08/29/23 Stop Date: 12/27/23 Status: Ordered Problem List Condition Confirmation Course Effective Dates Status H ealth Status Informant LORE positive Confirmed Active Aortic stenosis with bicuspid valve Confirmed Active Atrial hypertrophy, septal Confirmed Active Stage 3 chronic kidney disease Confirmed Active Coronary artery disease involving kaibab heart Confirmed Active Grade II diastolic dysfunction [...] Effective Dates Health Status Clinical Service Informant Coronary artery disease involving kaibab heart Discharge Diagnosis 12/05/23 Non-Specified S/P CABG x 2 Discharge Diagnosis 12/05/23 Non-Specified Essential hypertension Discharge Diagnosis 12/05/23 Non-Specified Aortic stenosis with bicuspid valve Discharge Diagnosis 12/05/23 Non-Specified Status post aortic valve replacement with tissue Discharge Diagnosis 12/05/23 Non-Specified Procedures Procedure Date Related Diagnosis Body Site Status Cardiac surgery 1 08/23/23 Complet ed Carotid artery Completed Carpal tunnel, right Comp leted 1heart Results Laboratory List Name Date Automated Differential. 12/05/23 CBC w/ Diff. 12/05/23 Comprehensive Metabolic Panel. 12/05/23 Lipid Panel. 12/05/23 Most recent to oldest [Reference Range]: 1 eGFR CKD-EPI [>=60 mL/min/1.73 m2] 50 mL /min/1.73 m2 *LOW* (12/05/23 7:16 AM) Estimated CrCl 47.30 mL/min (12/05/23 2:10 PM) BUN/Creat Ratio [10-20] 22 *HI* (12/05/23 7:16 AM) Osmolality Calc [275-300 mOsm/kg] 280 mO sm/kg (12/05/23 7:16 AM) RDW-CV [11.4-15.0 %] 12.9 % (12/05/23 7:16 AM) RDW-SD [36.4-46.3 fL] 43.8 fL (12/05/23 7:16 AM) Nuc RBC Relative Count [0.0-1.0 %] 0.0 % (12/05/23 7:16 AM) Nuc RBC Abs Count 0.00 K/uL *NA* (12/05/23 7:16 AM) Cardiac Risk ratio [0.00-4.49] 6.92 1 *HI* (12/05/23 7:16 AM) CO2 [22.0-29.0 mmol/L] 27.0 mmol/L (12/05/23 7:16 AM) MPV [7.0-10.3 fL] 10.3 fL (12/05/23 7:16 AM) Immature Gran% 0.3 % *NA* (12/05/23 7:16 AM) Neut% 40.4 % *NA* (12/05/23 7:16 AM) Lymph% 49.4 % *NA* (12/05/23 7:16 AM) [place]% 7.3 % *NA* (12/05/23 7:16 AM) Baso% 0.1 % *NA* (12/05/23 7:16 AM) Eos% 2.5 % *NA* (12/05/23 7:16 AM) Immat Gran, Abs [0.00-0.03 K/uL] 0.02 K/ uL (12/05/23 7:16 AM) Neut, Abs [1.52-6.68 K/uL] 2.90 K/uL (12/05/23 7:16 AM) Lymph, Abs [1.10-3.30 K/uL] 3.54 K/uL *HI* (12/05/23 7:16 AM) [place], Abs [0.22-0.78 K/uL] 0.52 K/uL (12/05/23 7:16 AM) Baso, Abs [0.00-0.05 K/uL] 0.01 K/uL (12/05/23 7:16 AM) Eos, Abs [0.00-0.40 K/uL] 0.18 K/uL (12/05/23 7:16 AM) Anion Gap [5-15 mmol/L] 8 mmol/L (12/05/23 7:16 AM) Alb [2.9-4.6 g/dL] 4.5 g/dL (12/05/23 7:16 AM) Alk Phos [40-180 unit/L] 74 unit/L (12/05/23:16 AM) ALT [10-60 unit/L] 16 unit/L (12/05/23:16 AM) AST [7-40 unit/L] 20 unit/L (12/05/23:16 AM) BUN [8-25 mg/dL] 32 mg/dL *HI* (12/05/23:16 AM) Ca [8.5-10.5 mg/dL] 9.3 mg/dL (12/05/23:16 AM) Chol [100-200 mg/dL] 249 mg/dL 2 *HI* (12/05/23:16 AM) Cl- [97-109 mmol/L] 101 mmol/L (12/05/23 7:16 AM) Cret [0.45-1.10 mg/dL] 1.44 mg/dL 3 *HI* (12/05/23:16 AM) Glu [50-99 mg/dL] 118 mg/dL 4 *HI* (12/05/23:16 AM) Hct [39.0-48.0 %] 43.3 % (12/05/23:16 AM) HDL [35-85 mg/dL] 36 mg/dL (12/05/23:16 AM) Hgb [13.3-16.2 g/dL] 13.9 g/dL (12/05/23:16 AM) K [3.5-5.1 mmol/L] 5.0 mmol/L (12/05/23:16 AM) LDL Chol, Calculated [0-99 mg/dL] 142 mg /dL *HI* (12/05/23:16 AM) MCH [27.8-33.0 pg] 30.0 pg (12/05/23 7:16 AM) MCHC [32.3-36.7 g/dL] 32.1 g/dL *LOW* (12/05/23 7:16 AM) MCV [81.5-98.6 fL] 93.5 fL (12/05/23 7:16 AM) Na [132-145 mmol/L] 136 mmol/L (12/05/23 7:16 AM) Plts [160-400 K/uL] 239 K/uL (12/05/23 7:16 AM) RBC [4.14-5.52 M/uL] 4.63 M/uL (12/05/23 7:16 AM) T Bili [0.2-1.2 mg/dL] 0.4 mg/dL (12/05/23 7:16 AM) Prot [5.4-8.0 g/dL] 7.1 g/dL (12/05/23 7:16 AM) TG [30-190 mg/dL] 356 mg/dL 5 *HI* (12/05/23 7:16 AM) WBC [3.85-10.15 K/uL] 7.17 K/uL (12/05/23 7:16 AM) 1Result Comment: 1.4 times the average risk of CHD 2Interpretive Data: Metamizole (Dipyrone) may falsely lower test results. 3Result Comment: eGFR is calculated by the CKD-EPI Creatinine equation (2020). * eGFR (mL/min/1.73) Category/Term >or= 90 G1/Normal or high 60-89 G2/Mildly Decreased 45-59 G3a/Mildly to moderately decreased 30-44 G3b/Moderately to severely decreased 15-29 G4/Severely decreased <15 G5/Kidney Failure *Note New 2020 equation. For more information on GFR and estimating equations, visit: http://www.kidney.org/professionals/kdoqi/gfr.cfm 4Interpretive Data: The Reference Range listed is for fasting blood Glucose only. 5Interpretive Data: Metamizole (Dipyrone) may falsely lower test results. Social History Social History Type Response Smoking Status Former Smoker, quit > 1 yr Sex Male Implantable Device List Procedure Provider Procedure Date Device Type Site Unknown Unknown 08/23/23 Unknown Unknown Device Identifier Serial Number Lot or Batch Number Manufacturing Date Expiration Date Distinct Identification Code MRI Safety Implantable Status Assigning Authority Unknown Unknown [id number] Unknown 05/31/26 Unknown Unknown Active Unkn own Unknown Unknown N/A Unknown 02/21/26 Unknown Unknown Active Unkn own Patient Care team information Care Team Personnel Name: MD Jackson Jeffrey R Position: Physician - Family Med Member Role: Primary Care Provider Address: Address: [address] [place] [address] Name: Chrissy Veloz Ashley Position: Pharmacist Schedule II Member Role: Pharmacy - Lifetime Name: Chrissy Mckee Brittani Position: Pharmacist Schedule II Member Role: Pharmacy - Lifetime Care Team Related Persons Name: ANDREW HUANG Address: home [address] [place] [phone] Name: ANDREW HUANG Address: home [address] [place] [phone]
--- OUTSIDE RECORDS SUMMARY | 2024-04-19 13:31 | External Medical Summary ---
Author Name Unknown Address Unknown Organization [facility] [address] [place] Laboratory Report Ordering Provider Test Date Status Manuel Mathis 03/10/2024 08:05:00 Final Observation Date Value Abnormality Reference (Units ) Status Cholesterol [Mass/volume] in Serum or Plasma 03/10/2024 16:29:12 164 100-200 (mg/dL) Final Metamizole (Dipyrone) may fa lsely lower test results. Cholesterol in HDL [Mass/volume] in Serum or Plasma 03/10/2024 16:29:12 36 35-85 (mg/dL) Final Triglyceride [Mass/volume] in Serum or Plasma 03/10/2024 16:29:12 303 Above high normal 30-190 (mg/dL) Final Metamizole (Dipyrone) may fa lsely lower test results. Cardiac heart disease risk [Ratio] in Serum or Plasma 03/10/2024 16:29:12 4.56 Above high normal 0. 00-4.49 Final Average risk of CHD Cholesterol in LDL [Mass/vol ume] in Serum or Plasma by calculation 03/10/2024 16:29:12 67 0-99 (mg/ dL) Final Performing Location [facility] [address] [place]
--- OUTSIDE RECORDS SUMMARY | 2024-04-19 13:31 | External Medical Summary | Continuity of Care Document ---
Author Name Unknown Organization [address] Address [address] [facility] [place] [id number] Care Team Providers Care Trauma Counsellor Name Role Phone Del Jackson Primary Care Physician [phone] [id number] Date(s): 12/11/23 - 12/11/23 [facility] [address] [place] [address] [id number] Encounter Diagnosis Essential hypertension(Discharge Diagnosis) - 12/11/23 Aortic stenosis with bicuspid valve(Discharge Diagnosis) - 12/11/23 Diabetic peripheral neuropathy associated with type 2 diabetes mellitus (Discharge Diagnosis) - 12/11/23 Coronary artery disease involving havasupai heart(Discharge Diagnosis) - 12/11/23 Status post aortic valve replacement with tissue(Discharge Diagnosis) - 12/11/23 Type 2 diabetes mellitus with hyperglycemia(Discharge Diagnosis) - 12/11/23 Bug bite(Discharge Diagnosis) - 12/11/23 Discharge Disposition: Home or Self Care Attending Physician: MD Jackson Jeffrey R Referring Physician: MD Jackson Jeffrey R Allergies, Adverse Reactions, Alerts Substance Criticality Severity Reaction Reaction Severity Status simvastatin Leg pain Active gabapentin Loose stools Active OxyCONTIN Unable to assess criticality Moderate Altered behavior Rash Active Assessment and Plan Extracted from: Title:OV-DM/HTN Author:MD Jackson Jeffrey R Napoleon e:12/11/23 1.Essential hypertension Blood pressure is 144/80 this is a little high it should be less than 140/90 make sure that she consistently take the metoprolol 25twice daily this should be helpful. If you begin to drop below and are noticing increasing dizzinessand you can reduce the dose. 2.Aortic stenosis with bicuspid valve This has been repaired successfully I thinkthe yieldhopefully feel an increase in energyover time. 3.Diabetic peripheral neuropathy associated with type 2 diabetes mellitus I imagine your diabetes is better controlled your fasting sugar was 118. Will recheck again in 3 months we will check a CMP and A1cto ensure that there is improvement. For the time being continue glipizide and metformin use the pioglitazoneintermittently. A good fasting sugar would be less than 120. You reported that your neuropathy has not progressed this is also good news. The goal is to maintain sugar control with an A1c less than 7but to prevent hypoglycemic episodes. 4.Coronary artery disease involving havasupai heart Continue to follow-up with a cardiologistappropriately. For the time being remain on aspirin Plavixstatin therapy and metoprolol. 5.Status post aortic valve replacement with tissue The outcome of the surgery has been excellent. 6.Type 2 diabetes mellitus with hyperglycemia See above under #3. I believe I will recheck CMP and A1c at next recheck in 3 monthsyour A1c will be less than 7. 7.Bug bite Use the triamcinolone onthe spot in your left antecubital fossa but this will be helpful to reduce inflammation and prevent itching. Medications Aspir 81 oral delayed release tablet Start: 08/29/23 3:44:00 PM EST, 81 mg =, PO, Daily, Disp# 30 tab, Refills: 3, Pharmacy: [facility] Start Date: 08/29/23 Stop Date: 12/27/23 Status: Ordered clopidogrel 75 mg oral tablet Start: 11/18/23 2:58:00 PM EDT, 1 tab, PO, Daily, Disp# 90 tab, Refills: 3, Pharmacy: [id number] Start Date: 11/18/23 Status: [...] metoprolol tartrate 25 mg oral tablet Start: 12/11/23 10:25:00 AM EDT, 1 tab, PO, bid, Disp# 180 tab, Refills: 3, Pharmacy: [id number] Start Date: 12/11/23 Stop Date: 12/05/24 Status: Ordered pioglitazone 15 mg oral tablet Start: 09/13/23 8:20:00 AM EDT, 1 tab, PO, Daily, Disp# 30 tab, Refills: 11, Pharmacy: [id number] Start Date: 09/13/23 Stop Date: 09/07/24 Status: Ordered pravastatin 40 mg oral tablet Start: 08/29/23 3:45:00 PM EST, 1 tab, PO, qhs, Disp# 30 tab, Refills: 3, Pharmacy: [facility] Start Date: 08/29/23 Stop Date: 12/27/23 Status: Ordered triamcinolone 0.025% topical ointment Start: 12/11/23 10:31:00 AM EDT, 1 appl, topical, bid, Disp# 60 g, Refills: 2, Pharmacy: [id number] Start Date: 12/11/23 Stop Date: 03/10/24 Status: Ordered Problem List Condition Confirmation Course Effective Dates Status H ealth Status Informant LORE positive Confirmed Active Aortic stenosis with bicuspid valve Confirmed Active Atrial hypertrophy, septal Confirmed Active Stage 3 chronic kidney disease Confirmed Active Coronary artery disease involving havasupai heart Confirmed Active Grade II diastolic dysfunction [...] Clinical Service Informant Coronary artery disease involving havasupai heart Discharge Diagnosis 12/11/23 Non-Specified Type 2 diabetes mellitus with hyperglycemia Discharge Diagnosis 12/11/23 Non-Specified Bug bite Discharge Diagnosis 12/11/23 Non-Specified Diabetic peripheral neuropathy associated with type 2 diabetes mellitus Discharge Diagnosis 12/11/23 Non-Specified Status post aortic valve replacement with tissue Discharge Diagnosis 12/11/23 Non-Specified Essential hypertension Discharge Diagnosis 12/11/23 Non-Specified Aortic stenosis with bicuspid valve Discharge Diagnosis 12/11/23 Non-Specified Procedures Procedure Date Related Diagnosis Body Site Status Cardiac surgery 1 08/23/23 Complet ed Carotid artery Completed Carpal tunnel, right Comp leted 1heart Vital Signs Most recent to oldest [Reference Range]: 1 Patient Weight 86.2 kg (12/11/23 9:52 AM) Heart Rate 67 bpm (12/11/23 9:52 AM) Blood Pressure 144/86mmHg (12/11/23 9:52 AM) Social History Social History Type Response Smoking Status Former Smoker, quit > 1 yr Sex Male Implantable Device List Procedure Provider Procedure Date Device Type Site Unknown Unknown 08/23/23 Unknown Unknown Device Identifier Serial Number Lot or Batch Number Manufacturing Date Expiration Date Distinct Identification Code MRI Safety Implantable Status Assigning Authority Unknown Unknown [id number] Unknown 05/31/26 Unknown Unknown Active Unkn own Unknown Unknown N/A Unknown 02/21/26 Unknown Unknown Active Unkn own FCM Outpt Note * MD Manuel, Del R: PERFORM Event Display: FCM Outpt Note Authored Date: [id number] Chief Complaint review BW, meds, lump on back, bug bite left ac History of Present Illness Patient is doing well. His fasting sugar was 118. The remainder of his blood work was reviewed.His triglycerides are much betterwe can actually tell what his LDL is because his triglyceridesare so good this is a combination ofdiet and exercise. He takes the pioglitazone only intermittentlybecause he does not want his sugars to drop too low.He agreed to get blood work again in 3 months including a CMP and A1c. He is status post two-vessel bypass and aortic valve replacement doing well he will be following up with cardiology. He thinks he is going to be able to stop thePlavix. . He had a pretty tumultuous hospitalizationand feels like he is finally recovered. Blood pressure remains a bit high. Today was 144/80. He says at home it is looking up. He admitted that he is starting to take a higher dose of metoprolol to compensate. He would prefer to have the 25 mg twice daily available. If his blood pressure begins to drop againwill be able towean back the dose. A good goal would be to have hisblood pressure under 140/90. He also notes a bug bite in the left antecubital fossa.It has been itchy in the lastmonth he does note a little bit of increasing erythema. It appears to bearea of scarthat is somewhat inflamed. I wondered if it could be a foreign body. Is not exactly surewhere it came from. I recommended triamcinolone ointment to the area. He also has a large sebaceous cyston his upper back. It does not bother him at all but his wifewonderedwhether anything needed done about it. I took a pictureand that should be availableon the chart. He denies chest pain shortness of breath or dizziness. He feels like his energy is returning. He is able to eat again.Numbness and tingling in his feet is the same and has not progressed. Physical Exam Vitals & Measurements HR:67(Monitored) BP:144/86 SpO2:99% WT:86.2kg WT:86.200kg(Dosing) Alert and oriented pleasant. Image available in the [employer] of a large sebaceous cyst in his upper back. He also has little bug bite in the antecubital fossaon the left. It appears as though it may be a hypertrophied scarthat location there is some erythemaandapparent itching. Assessment/Plan 1.Essential hypertension Blood pressure is 144/80 this is a little high it should be less than 140/90 make sure that she consistently take the metoprolol 25twice daily this should be helpful. If you begin to drop belowand are noticing increasing dizzinessand you can reduce the dose. 2.Aortic stenosis with bicuspid valve This has been repaired successfully I thinkthe yieldhopefully feel an increase in energyover time. 3.Diabetic peripheral neuropathy associated with type 2 diabetes mellitus I imagine your diabetes is better controlled your fasting sugar was 118. Will recheck again in 3 months we will check a CMP and A1cto ensure that there is improvement. For the time being continue glipizide and metformin use the pioglitazoneintermittently. A good fasting sugar would be less than 120. You reported that your neuropathy has not progressed this is also good news. The goal is to maintain sugar control with an A1c less than 7but to prevent hypoglycemic episodes. 4.Coronary artery disease involving havasupai heart Continue to follow-up with a cardiologistappropriately. For the time being remain on aspirin Plavixstatin therapy and metoprolol. 5.Status post aortic valve replacement with tissue The outcome of the surgery has been excellent. 6.Type 2 diabetes mellitus with hyperglycemia See above under #3. I believe I will recheck CMP and A1c at next recheck in 3 monthsyour A1c will be less than 7. 7.Bug bite Use the triamcinolone onthe spot in your left antecubital fossa but this will be helpful to reduce inflammation and prevent itching. 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 Type II diabetes mellitus with complication Resolved Severe aortic stenosis Procedure/Surgical History Cardiac surgery| Service Date: 4Carpal tunnel, rightCarotid artery Medications aspirin(Aspir 81 oral delayed release tablet), 81 mg, PO, Daily, 3 refills clopidogrel(clopidogrel 75 mg oral tablet), 75 mg= 1 tab, PO, Daily, 3 refills glipiZIDE(glipiZIDE 10 mg oral tablet, extended release) magnesium gluconate(magnesium gluconate 500 mg oral tablet), 1000 mg= 2 tab, PO, Daily metFORMIN(metFORMIN 1000 mg oral tablet), 1000 mg= 1 tab, PO, bid metoprolol(metoprolol tartrate 25 mg oral tablet), 25 mg= 1 tab, PO, bid, 3 refills pioglitazone(pioglitazone 15 mg oral tablet), 15 mg= 1 tab, PO, Daily, 11 refills pravastatin(pravastatin 40 mg oral tablet), 40 mg= 1 tab, PO, qhs, 3 refills triamcinolone topical(triamcinolone 0.025% topical ointment), 1 appl, topical, bid, 2 refills Allergies OxyCONTIN (Moderate)Altered behavior, Rash gabapentinLoose stools simvastatinLeg pain Social History Smoking Status Former Smoker, quit > 1 yr Recommendations Health Maintenance Pending(in the next year) OverDue Adult Influenza Vaccine due12/28/22and every 1year Due Adult COVID-19 Vaccination due12/11/23Unknown Frequency Medicare Annual Wellness Visit due12/11/23and every 1year Pneumococcal Vaccine Older Adults due12/11/23One-time only Shingles Vaccine due12/11/23One-time only Due In Future Diabetic Eye Exam not due until06/06/24and every 731day Adult Social Determinants of Health Screening not due until08/14/24and every 366day Diabetes Management A1c not due until08/14/24and every 366day Satisfied(in the past 1 year) Satisfied Body Mass Index on10/21/23.Satisfied by CAMILA [facility] Colorectal Cancer Screening on08/19/23.Satisfied by [employer], [employer] Diabetes Management A1c on08/13/23.Satisfied by [employer], [employer] Hepatitis C Screening on08/14/23.Satisfied by [employer], [employer] Lipid Screening on12/05/23.Satisfied by SYSTEM Lab Results Test Name Test Result Date/Time Na 136 mmol/L 12/05/2023 07:16 EDT K 5.0 mmol/L 12/05/2023 07:16 EDT Cl- 101 mmol/L 12/05/2023 07:16 EDT CO2 27.0 mmol/L 12/05/2023 07:16 EDT Anion Gap 8 mmol/L 12/05/2023 07:16 EDT BUN 32 mg/dL 12/05/2023 07:16 EDT Cret 1.44 mg/dL 12/05/2023 07:16 EDT BUN/Creat Ratio 22 12/05/2023 07:16 EDT eGFR CKD-EPI 50 mL/min/1.73 m2 12/05/2023 07:16 EDT Glu 118 mg/dL 12/05/2023 07:16 EDT Ca 9.3 mg/dL 12/05/2023 07:16 EDT Osmolality Calc 280 mOsm/kg 12/05/2023 07:16 EDT WBC 7.17 K/uL 12/05/2023 07:16 EDT Hgb 13.9 g/dL 12/05/2023 07:16 EDT Hct 43.3 % 12/05/2023 07:16 EDT RBC 4.63 M/uL 12/05/2023 07:16 EDT MCV 93.5 fL 12/05/2023 07:16 EDT MCHC 32.1 g/dL 12/05/2023 07:16 EDT MCH 30.0 pg 12/05/2023 07:16 EDT RDW-CV 12.9 % 12/05/2023 07:16 EDT RDW-SD 43.8 fL 12/05/2023 07:16 EDT Plts 239 K/uL 12/05/2023 07:16 EDT Nuc RBC Relative Count 0.0 % 12/05/2023 07:16 EDT Nuc RBC Abs Count 0.00 K/uL 12/05/2023 07:16 EDT MPV 10.3 fL 12/05/2023 07:16 EDT Immature Gran% 0.3 % 12/05/2023 07:16 EDT Neut% 40.4 % 12/05/2023 07:16 EDT Lymph% 49.4 % 12/05/2023 07:16 EDT Bullock% 7.3 % 12/05/2023 07:16 EDT Baso% 0.1 % 12/05/2023 07:16 EDT Eos% 2.5 % 12/05/2023 07:16 EDT Immat Gran, Abs 0.02 K/uL 12/05/2023 07:16 EDT Neut, Abs 2.90 K/uL 12/05/2023 07:16 EDT Lymph, Abs 3.54 K/uL 12/05/2023 07:16 EDT Bullock, Abs 0.52 K/uL 12/05/2023 07:16 EDT Baso, Abs 0.01 K/uL 12/05/2023 07:16 EDT Eos, Abs 0.18 K/uL 12/05/2023 07:16 EDT ALT 16 unit/L 12/05/2023 07:16 EDT T Bili 0.4 mg/dL 12/05/2023 07:16 EDT Alk Phos 74 unit/L 12/05/2023 07:16 EDT AST 20 unit/L 12/05/2023 07:16 EDT Alb 4.5 g/dL 12/05/2023 07:16 EDT Prot 7.1 g/dL 12/05/2023 07:16 EDT Chol 249 mg/dL 12/05/2023 07:16 EDT LDL Chol, Calculated 142 mg/dL 12/05/2023 07:16 EDT HDL 36 mg/dL 12/05/2023 07:16 EDT Cardiac Risk ratio 6.92 12/05/2023 07:16 EDT TG 356 mg/dL 12/05/2023 07:16 EDT Electronic Signature on File Electronically Reviewed/Signed by: Del Jackson MD Author Signature Dt/Tm:12/11/2023 10:45 AM Family Medicine [facility] Patient Care team information Care Team Personnel Name: MD Manuel, Del Alcantar Position: Physician - Family Med Member Role: Primary Care Provider Address: Address: [address] [place] [address] Name: Chrissy Veloz Ashley Position: Pharmacist Schedule II Member Role: Pharmacy - Lifetime Name: Chrissy Mckee Brittani Position: Pharmacist Schedule II Member Role: Pharmacy - Lifetime Care Team Related Persons Name: ANDREW HUANG Address: home [address] [place] [phone] Name: ANDREW HUANG Address: home [address] [place], [place] [id number]"
--- OUTSIDE RECORDS SUMMARY | 2024-04-19 13:31 | External Medical Summary | Continuity of Care Document ---
Author Name Unknown Organization [facility] [address] [facility] Address [address] [facility] [place] [id number] Care Team Providers Care Welding Technician Name Role Phone Del Jackson Primary Care Physician [phone] Encounter [facility] [id number] Date(s): 03/16/24 - 03/16/24 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 The diabetes as well as fairly well-controlled A1c is 7.2technically should be less than 7 however we will set up for 7.2. He is on the pioglitazone occasionally and taking metformin and glipizide on an ongoingbasisthis is a good regimen. Increase exerciseif possible. 2.Peripheral vascular disease No evidence of worsening PVD 3.S/P CABG x 2 No evidence ofcardiaccomplicationordecompensation. Continue current medicines including aspirin andPlavix long-term 4.Aortic stenosis with bicuspid valve Ordered valve is new and seems to be functioning normally I would not recommend any change in care. 5.Essential hypertension Blood pressure is 142/82 which is a bit high it should technically be less than 140/90.increase metoprolol up to 20 5 in the morning and 50 in theevening.Good blood pressure control to reduce your risk of heart disease or stroke long-termand so very important. 6.T-cell large granular lymphocytic leukemia No evidence of recurrence. you seemto be doing very well. CMP and lipidwith an A1c to be repeated in 6 months. Medications Aspir 81 oral delayed release tablet Start: 08/29/23 3:44:00 PM EST, 81 mg =, PO, Daily, Disp# 30 tab, Refills: 3, Pharmacy: [facility] Start Date: 08/29/23 Stop Date: 12/27/23 Status: Ordered clopidogrel 75 mg oral tablet Start: 11/18/23 2:58:00 PM EDT, 1 tab, PO, Daily, Disp# 90 tab, Refills: 3, Pharmacy: [id number] Start Date: 11/18/23 Status: [...] for concerns of hypo or hyperglycemia, Pharmacy: [id number] Start Date: 03/16/24 Status: Ordered One Touch Verio Flex Glucose Monitor Start: 03/16/24 9:10:00 AM EDT, See Instructions, Disp# 1 each, Refills: 1, for use 2 times per day,Note to Pharmacy: Dispense as written, Pharmacy: [id number] Start Date: 03/16/24 Status: Ordered One Touch Verio Test Strips Start: 03/16/24 9:10:00 AM EDT, See Instructions, Disp# 200 each, Refills: 3, check blood glucose 2xper day and as needed for concerns of hypo or hyperglycemia, Pharmacy: [facility] #[facility] Start Date: 03/16/24 Status: Ordered pioglitazone 15 mg oral tablet Start: 09/13/23 8:20:00 AM EDT, 1 tab, PO, Daily, Disp# 30 tab, Refills: 11, Pharmacy: [facility] Start Date: 09/13/23 Stop Date: 09/07/24 Status: Ordered rosuvastatin 20 mg oral tablet Start: 12/17/23 9:03:00 AM EDT, 1 tab, PO, Daily, Disp# 90 tab, Refills: 3, Note to Pharmacy: To stop provastatin, Pharmacy: [facility] #[facility] Start Date: 12/17/23 Stop Date: 12/11/24 Status: Ordered Toprol-XL 25 mg oral tablet, extended release Start: 12/17/23 9:02:00 AM EDT, 1 tab, PO, bid, Disp# 180 tab, Refills: 3, Note to Pharmacy: Change in formulation, Pharmacy: [id number] Start Date: 12/17/23 Stop Date: 12/11/24 Status: Ordered triamcinolone 0.025% topical ointment Start: 12/11/23 10:31:00 AM EDT, 1 appl, topical, bid, Disp# 60 g, Refills: 2, Pharmacy: [id number] Start Date: 12/11/23 Stop Date: 03/10/24 Status: Ordered Mental Status 03/16/24 Barriers to Learning one year Vision imp airment Mandatory Health Literacy Documentation Yes Health Literacy Communication Barriers N ever Primary Language Paragu[place] Problem List Condition Confirmation Course Effective Dates Status H ealth Status Informant LORE positive Confirmed Active Aortic stenosis with bicuspid valve Confirmed Active Atrial hypertrophy, septal Confirmed Active Stage 3 chronic kidney disease Confirmed Active Coronary artery disease involving stebbins heart Confirmed Active Grade II diastolic dysfunction [...] Effective Dates Health Status Clinical Service Informant S/P CABG x 2 Discharge Diagnosis 03/16/24 Non-Specified Aortic stenosis with bicuspid valve Discharge Diagnosis 03/16/24 Non-Specified Essential hypertension Discharge Diagnosis 03/16/24 Non-Specified Diabetic peripheral neuropathy associated with type 2 diabetes mellitus Discharge Diagnosis 03/16/24 Non-Specified Peripheral vascular disease Discharge Diagnosis 03/16/24 Non-Specified T-cell large granular lymphocytic leukemia Discharge Diagnosis 03/16/24 Non-Specified Procedures Procedure Date Related Diagnosis Body Site Status Cardiac surgery 1 08/23/23 Complet ed Carotid artery Completed Carpal tunnel, right Comp leted 1heart Vital Signs Most recent to oldest [Reference Range]: 1 Height 176.4 cm (03/16/24 8:40 AM) Patient Weight 83.7 kg (03/16/24 8:40 AM) Body Mass Index 26.9 kg/m2 (03/16/24 8:40 AM) Temperature [36.5-37.9 DegC] 35.8 DegC *LOW* (03/16/24 8:40 AM) Heart Rate 80 bpm (03/16/24 8:40 AM) Blood Pressure 144/82mmHg (03/16/24 8:40 AM) BP Location # 1 Right Arm (03/16/24 8:40 AM) Social History Social History Type Response Smoking Status Former Smoker, quit > 1 yr Sex Male Sex Representation Male (finding) Implantable Device List Procedure Provider Procedure Date Device Type Site Unknown Unknown 08/23/23 Unknown Unknown Device Identifier Serial Number Lot or Batch Number Manufacturing Date Expiration Date Distinct Identification Code MRI Safety Implantable Status Assigning Authority Unknown Unknown [id number] Unknown 05/31/26 Unknown Unknown Active Unkn own Unknown Unknown N/A Unknown 02/21/26 Unknown Unknown Active Unkn own FCM Outpt Note * MD Manuel, Del Alcantar: PERFORM Event Display: FCM Outpt Note Authored Date: [id number] Chief Complaint 3 month f/u for DM. go over blood work results. History of Present Illness Patient is actually doing fairly well he presents for routine follow-up his A1c was 7.2blood pressure remained high at 144/82. He is amenable to escalating his metoprolol dose to better control his blood pressure. His LDL cholesterol is much better now in the 60s on rosuvastatin. He denies any chest painor dizziness. Sometimes he notes a bit of brain fog. His numbness and tingling in his feet is the same it is not worse at all. He is status post bypass and aortic valve replacementdoing very well.Additionally has a past history of T-cell large granularleukemiawhich is completely quiescent. His CBC with differential todayis absolutely normal. He had a busyyear last year but is doing much betterrecently. He remains fairly active. Physical Exam Vitals & Measurements T:35.8C HR:80(Monitored) BP:144/82 HT:176.4cm WT:83.700kg(Dosing) WT:83.7kg BMI:26.9 Alert oriented pleasant cardiovascular regular rate and rhythm with aortic murmur Lungs are clear posteriorlyminimal edema is noted. Assessment/Plan 1.Diabetic peripheral neuropathy associated with type 2 diabetes mellitus This is stable. The diabetes as well as fairly well-controlled A1c is 7.2technically should be less than 7 however we will set up for 7.2. He is on the pioglitazone occasionally and taking metformin and glipizide on an ongoingbasisthis is a good regimen. Increase exerciseif possible. 2.Peripheral vascular disease No evidence of worsening PVD 3.S/P CABG x 2 No evidence ofcardiaccomplicationordecompensation. Continue current medicines includingaspirin andPlavix long-term 4.Aortic stenosis with bicuspid valve Ordered valve is new and seems to be functioning normally I would not recommend any change in care. 5.Essential hypertension Blood pressure is 142/82 which is a bit high it should technically be less than 140/90.increase metoprolol up to 20 5 in the morning and 50 in theevening.Good blood pressure control to reduce your risk of heart disease or stroke long-termand so very important. 6.T-cell large granular lymphocytic leukemia No evidence of recurrence. you seemto be doing very well. CMP and lipidwith an A1c to be repeated in 6 months. Problem List/Past Medical History Ongoing LORE positive Aortic stenosis with bicuspid valve Atrial hypertrophy, septal Coronary artery disease involving stebbins heart Diabetic peripheral neuropathy associated with type [...] mg= 1 tab, PO, Daily, 3 refills diabetes supplies(One Touch Verio Flex Glucose Monitor), See Instructions, 1 refills diabetes supplies(One Touch Verio Test Strips), See Instructions, 3 refills diabetes supplies(One Touch Delica Plus (33G) Lancets), See Instructions, 3 refills glipiZIDE(glipiZIDE 10 mg oral tablet, extended release) magnesium gluconate(magnesium gluconate 500 mg oral tablet), 1000 mg= 2 tab, PO, Daily metFORMIN(metFORMIN 1000 mg oral tablet), 1000 mg= 1 tab, PO, bid metoprolol(Toprol-XL 25 mg oral tablet, extended release), 25 mg= 1 tab, PO, bid, 3 refills pioglitazone(pioglitazone 15 mg oral tablet), 15 mg= 1 tab, PO, Daily, 11 refills rosuvastatin(rosuvastatin 20 mg oral tablet), 20 mg= 1 tab, PO, Daily, 3 refills triamcinolone topical(triamcinolone 0.025% topical ointment), 1 appl, topical, bid, 2 refills Allergies OxyCONTIN (Moderate)Altered behavior, Rash gabapentinLoose stools simvastatinLeg pain Social History Smoking Status Former Smoker, quit > 1 yr Recommendations Health Maintenance Pending(in the next year) OverDue Adult Influenza Vaccine due12/29/23and every 1year Due Adult COVID-19 Vaccination due03/16/24Unknown Frequency Medicare Annual Wellness Visit due03/16/24and every 1year Pneumococcal Vaccine Older Adults due03/16/24One-time only Shingles Vaccine due03/16/24One-time only Due In Future Diabetic Eye Exam not due until06/06/24and every 731day Adult Social Determinants of Health Screening not due until08/14/24and every 366day Diabetes Management A1c not due until03/11/25and every 366day Satisfied(in the past 1 year) Satisfied Body Mass Index on03/16/24.Satisfied by CAMILA Olmos Mallory A Colorectal Cancer Screening on08/19/23.Satisfied by Contributor_system, [email or web address] Diabetes Management A1c on03/10/24.Satisfied by Prasanna Vela Hepatitis C Screening on08/14/23.Satisfied by Contributor_system, [email or web address] Lipid Screening on03/10/24.Satisfied by SYSTEM Electronic Signature on File Electronically Reviewed/Signed by: Del Jackson MD Author Signature Dt/Tm:03/16/2024 11:12 AM Family Medicine [facility] Patient Care team information Care Team Personnel Name: MD Manuel, Del Alcantar Position: Physician - Family Med Member Role: Primary Care Provider Address: [address] [place] [address] Name: Chrissy Mckee Brittani Position: Pharmacist Member Role: Pharmacy - Lifetime Care Team Related Persons Name: ANDREW HUANG Name: ANDREW HUANG"
--- OUTSIDE RECORDS SUMMARY | 2024-04-19 13:31 | External Medical Summary ---
Author Name Unknown Address Unknown Organization [facility] [address] [place] [address] Laboratory Report Ordering Provider Test Date Status Manuel Mathis 03/10/2024 08:05:00 Final Observation Date Value Abnormality Reference (Units ) Status Glucose [Mass/volume] in Serum or Plasma 03/10/2024 16:29:12 154 Above high normal 50-99 (mg/dL) Final The Reference Range listed i s for fasting blood Glucose only. Urea nitrogen [Mass/volume] in Serum or Plasma 03/10/2024 16:29:12 25 8-25 (mg/dL) Final Urea nitrogen/Creatinine [Mass Ratio] in Serum or Plasma 03/10/2024 16:29:12 19 10-20 Final Creatinine [Mass/volume] in Serum or Plasma 03/10/2024 16:29:12 1.32 Above high normal 0.45-1.10 (mg/dL) Final eGFR [...] Plasma or Blood by Creatinine-based formula (CKD-EPI) 03/10/2024 16:29:13 56 Below low normal >=60 (mL/min/1.73 m2) Final Sodium [Moles/volume] in Serum or Plasma 03/10/2024 16:29:12 137 132-145 (mmol/L) Final Potassium [Moles/volume] in Serum or Plasma 03/10/2024 16:29:12 4.8 3.5-5.1 (mmol/L) Final Chloride [Moles/volume] in Serum or Plasma 03/10/2024 16:29:12 101 97-109 (mmol/L) Final Bicarbonate [Moles/volume] in Plasma 03/10/2024 16:29:12 27.5 22.0-29.0 (mmol/L) Final Anion gap 3 in Serum or Plasma 03/10/2024 16:29:12 9 5-15 (mmol/L) Final Osmolality of Serum or Plasma by calculation 03/10/2024 16:29:12 281 275-300 (mOsm/kg) Final Calcium [Mass/volume] in Serum or Plasma 03/10/2024 16:29:12 9.2 8.5-10.5 (mg/dL) Final Protein [Mass/volume] in Serum or Plasma 03/10/2024 16:29:12 7.2 5.4-8.0 (g/dL) Final Albumin [Mass/volume] in Serum or Plasma by Bromocresol green (BCG) dye binding method 03/10/2024 16:29:12 4.6 2.9-4.6 (g/dL) Final Bilirubin.total [Mass/volume] in Serum or Plasma 03/10/2024 16:29:12 0.5 0.2-1.2 (mg/dL) Final Aspartate aminotransferase [Enzymatic activity/volume] in Serum or Plasma 03/10/2024 16:29:12 18 7-40 (unit/L) Final Alanine aminotransferase [Enzymatic activity/volume] in Serum or Plasma 03/10/2024 16:29:12 20 10-60 (unit/L) Final Alkaline phosphatase [Enzymatic activity/volume] in Serum or Plasma 03/10/2024 16:29:12 83 40-180 (unit/L) Final Performing Location [facility] [address] [place] [address]
--- OUTSIDE RECORDS SUMMARY | 2024-04-19 13:31 | External Medical Summary | Continuity of Care Document ---
Author Name Unknown Organization [facility] [address] [place] [address] [place] [phone] Care Team Providers Care Hearing Aid Technician Name Role Phone Del Jackson Primary Care Physician [phone] [id number] Date(s): 03/23/24 - 03/23/24 [facility] 600 [facility] [place] - [place], [address], [address] [place] [address] [phone] Discharge Disposition: Home or Self Care Attending Physician: MD More Mark Referring Physician: MD More Mark Allergies, Adverse Reactions, Alerts Substance Criticality Severity Reaction Reaction Severity Status simvastatin Leg pain Active gabapentin Loose stools Active OxyCONTIN Unable to assess criticality Moderate Altered behavior Rash Active Medications Aspir 81 oral delayed release tablet Start: 08/29/23 3:44:00 PM EST, 81 mg =, PO, Daily, Disp# 30 tab, Refills: 3, Pharmacy: [facility] Start Date: 08/29/23 Stop Date: 12/27/23 Status: Ordered clopidogrel 75 mg oral tablet Start: 11/18/23 2:58:00 PM EDT, 1 tab, PO, Daily, Disp# 90 tab, Refills: 3, Pharmacy: [id number] Start Date: 11/18/23 [...] for concerns of hypo or hyperglycemia, Pharmacy: [id number] Start Date: 03/16/24 Status: Ordered One Touch Verio Flex Glucose Monitor Start: 03/16/24 9:10:00 AM EDT, See Instructions, Disp# 1 each, Refills: 1, for use 2 times per day,Note to Pharmacy: Dispense as written, Pharmacy: [facility] Start Date: 03/16/24 Status: Ordered One Touch Verio Test Strips Start: 03/16/24 9:10:00 AM EDT, See Instructions, Disp# 200 each, Refills: 3, check blood glucose 2xper day and as needed for concerns of hypo or hyperglycemia, Pharmacy: [facility] Start Date: 03/16/24 Status: Ordered pioglitazone 15 mg oral tablet Start: 09/13/23 8:20:00 AM EDT, 1 tab, PO, Daily, Disp# 30 tab, Refills: 11, Pharmacy: [facility] Start Date: 09/13/23 Stop Date: 09/07/24 Status: Ordered rosuvastatin 20 mg oral tablet Start: 12/17/23 9:03:00 AM EDT, 1 tab, PO, Daily, Disp# 90 tab, Refills: 3, Note to Pharmacy: To stop provastatin, Pharmacy: [id number] Start Date: 12/17/23 Stop Date: 12/11/24 Status: Ordered Toprol-XL 25 mg oral tablet, extended release Start: 12/17/23 9:02:00 AM EDT, 1 tab, PO, bid, Disp# 180 tab, Refills: 3, Note to Pharmacy: Change in formulation, Pharmacy: [id number] Start Date: 12/17/23 Stop Date: 12/11/24 Status: Ordered triamcinolone 0.025% topical ointment Start: 12/11/23 10:31:00 AM EDT, 1 appl, topical, bid, Disp# 60 g, Refills: 2, Pharmacy: [id number] Start Date: 12/11/23 Stop Date: 03/10/24 Status: Ordered Problem List Condition Confirmation Course Effective Dates Status H ealth Status Informant LORE positive Confirmed Active Aortic stenosis with bicuspid valve Confirmed Active Atrial hypertrophy, septal Confirmed Active Stage 3 chronic kidney disease Confirmed Active Coronary artery disease involving [place] heart Confirmed Active Grade II diastolic dysfunction [...] II diabetes mellitus with complication Confirmed Active Procedures Procedure Date Related Diagnosis Body Site Status Cardiac surgery 1 08/23/23 Complet ed Carotid artery Completed Carpal tunnel, right Comp leted 1heart Results Radiology Reports * Exam Date Time Procedure Performing Provider Status 03/23/24 9:32 AM Echo TransTHORacic TTE Complete Miguel Donahue; Final Notes: (Echo TransTHORacic TTE Complete) Reason For Exam: s/p AVR Echo TransTHORacic TTE Complete Report Signatures Finalized by Dr. Jona Mcfarlane DO on 03/23/2024 10:36 AM PA Act 112: No-No further action needed Summary 1. Normal left ventricular size and systolic function. 2. Estimated Ejection Fraction 55-60%. 3. Poor visualization of endocardial borders. No obvious regional wall motion abnormalities. 4. No left ventricular hypertrophy. 5. Inconclusive data to evaluate diastolic function. 6. Normal right ventricular size with mildly reduced systolic function. 7. Aortic valve replacement (23 mm Garcia Magna Ease, 2023, [facility]). Normal prosthetic function. No stenosis. No regurgitation. 8. Restricted mitral valve leaflets with mild mitral valve stenosis. 9. Insufficient TR for estimation of pulmonary artery systolic pressure. 10. Compared to prior transthoracic study from 08/14/2023, now status post AVR. Patient Info Name: RADHA HUANG Age: 79 years : 1945 Gender: Male Ht: 176 cm Wt: 83 kg BSA: 2.03 m2 HR: 75 bpm BP: 211 / 78 mmHg Heart Rhythm: Sinus Rhythm Technical Quality: Technically difficult study Exam Date: 03/23/2024 9:02 AM Exam Location: [facility] Patient Status: Outpatient Staff Ordering Physician: Reuben More Professor (marc) Sorter Upholstery Parts: Miguel Donahue RDCS Attending Physician: Reuben More (marc) Study Info CPT 72501 - Indications Z95.2 - Aortic Valve Replacement Procedure(s) * A complete two-dimensional, color flow and Doppler transthoracic echocardiogram was performed. Exam Type: Cardiac Basic Left Ventricle Normal left ventricular size and systolic function. Estimated Ejection Fraction 55-60%. Poor visualization of endocardial borders. No obvious regional wall motion abnormalities. No left ventricular hypertrophy. Inconclusive data to evaluate diastolic function. Right Ventricle Normal right ventricular size with mildly reduced systolic function. Right ventricular fractional area change is mildly decreased, 34 %. Left Atrium Normal left atrial size. Right Atrium Normal right atrial size. Aortic Valve Aortic valve replacement (23 mm Garcia Magna Ease, 2023, [facility]). Normal prosthetic function. No stenosis. No regurgitation. Pulmonic Valve Unremarkable pulmonic valve. Mitral Valve Restricted mitral valve leaflets with mild mitral valve stenosis. Tricuspid Valve Unremarkable tricuspid valve. Insufficient TR for estimation of pulmonary artery systolic pressure. Pericardium/Pleural No significant pericardial effusion. Inferior Vena Cava Normal IVC size and inspiratory collapse. Aorta Normal aortic root. Left Ventricular Outflow Tract Name Value Normal LVOT 2D LVOT Diameter 2.1 cm LVOT Doppler LVOT Peak Velocity 1.48 m/s LVOT Peak Gradient 9 mmHg LVOT Mean Gradient 4 mmHg LVOT VTI 25.73 cm LVOT VTI/AV VTI Ratio 0.56 LVOT Stroke Volume 92.53 ml LVOT Stroke Volume Index 0.05 l/m2 LVOT Cardiac Output 6.94 l/min LVOT Cardiac Index 3.42 L/min/m2 Pulmonic Valve Name Value Normal RVOT Doppler RVOT Peak Velocity 1.30 m/s RVOT Peak Gradient 6 mmHg RVOT Mean Gradient 4 mmHg PV Doppler PV Peak Gradient 12 mmHg PV Mean Gradient 5 mmHg PV Regurgitation Doppler MT Peak Velocity 1.98 m/s Mitral Valve Name Value Normal MV Doppler MV Peak Velocity 1.65 m/s MV Peak Gradient 8 mmHg MV Mean Gradient 4 mmHg MV VTI 38.67 cm MV PHT 114 ms MV Area (Cont Eq VTI) 2.4 cm2 MV Area Index (Cont Eq VTI) 1.18 cm2/m2 MV Diastolic Function MV E Peak Velocity 1.30 m/s <=0.50 MV A Peak Velocity 1.12 m/s MV E/A 1.16 <=0.80 MV Decel Time 394 ms Tricuspid Valve Name Value Normal TV Regurgitation Doppler TR Peak Velocity 1.54 m/s <=2.80 TR Peak Gradient 9 mmHg Estimated PAP/RSVP RA Pressure 3 mmHg <=5 PA Systolic Pressure 12 mmHg <40 PA Mean Pressure (MT Velocity) 19 mmHg PVR (Wood Units) 53.28 dsc-5 TV Diastolic Function TV E Peak Velocity 0.41 m/s TV A Peak Velocity 0.39 m/s TV E/A 1.05 0.80-2.00 TV Decel Time 249 ms >=120 Aorta Name Value Normal Ascending Aorta Sinus of Valsalva Diameter 3.0 cm 3.1-3.7 Sinus of Valsalva Index 1.46 cm/m2 1.50-1.90 Venous Name Value Normal IVC/SVC IVC Diameter (Insp 2D) 0.2 cm IVC Diameter (Exp 2D) 1.1 cm <=2.1 IVC Diameter Percent Change (2D) 85 % >=50 Aortic Valve Name Value Normal AV Doppler AV Peak Velocity 2.68 m/s <2.00 AV Peak Gradient 23 mmHg AV Mean Gradient 10 mmHg <20 AV VTI 45.78 cm AV Area (Cont Eq VTI) 2.0 cm2 >=2.0 AV Area Index (Cont Eq VTI) 1.00 cm2/m2 AV Area (Cont Eq Michael) 2.0 cm2 AV Area Index (Cont Eq Michael) 0.98 cm2/m2 AV V1/V2 Ratio 0.55 AV Regurgitation 2D LVOT Area 3.6 cm2 Ventricles Name Value Normal LV Dimensions 2D/MM IVS Diastolic Thickness (2D) 0.7 cm 0.6-1.0 LVID Diastole (2D) 5.2 cm 3.6-5.6 LVIW Diastolic Thickness (2D) 0.9 cm 0.6-1.0 LVID Systole (2D) 2.7 cm 2.5-4.0 LVOT Diameter 2.1 cm LV Mass (2D Cubed) 143.40 g 88.00-224.00 LV Mass Index (2D Cubed) 0.01 g/cm2 0.00-0.01 Relative Wall Thickness (2D) 0.33 LV Fractional Shortening/Ejection Fraction 2D/MM LV Fractional Shortening (2D) 47 % 25-43 RV Dimensions 2D/MM RV Basal Diastolic Dimension 4.2 cm 2.5-4.1 RV Diastolic Area (4C) 23.4 cm2 10.0-24.0 RV Systolic Area (4C) 15.4 cm2 3.0-15.0 TAPSE 1.3 cm >=1.7 RV Fractional Shortening 2D RV FAC (4C) 34 % >=35 Atria Name Value Normal LA Dimensions LA Area (4C) 22.4 cm2 LA Length (4C) 7.2 cm LA Area (2C) 23.5 cm2 LA Length (2C) 6.7 cm LA Volume (4C A-L) 59.46 ml LA Volume (2C A-L) 70.47 ml LA Volume (BP A-L) 67 ml 18-58 LA Volume Index (BP A-L) 33.09 ml/m2 <=34.00 RA Dimensions RA Area (4C) 17.2 cm2 <=18.0 Final Signed by:DO Mcfarlane Vincent A Signed (Electronic Signature):03/23/2024 9:02 a Social History Social History Type Response Smoking Status Never smoked cigaret hedy Sex Male Sex Representation Male (finding) Implantable Device List Procedure Provider Procedure Date Device Type Site Unknown Unknown 08/23/23 Unknown Unknown Device Identifier Serial Number Lot or Batch Number Manufacturing Date Expiration Date Distinct Identification Code MRI Safety Implantable Status Assigning Authority Unknown Unknown [id number] Unknown 05/31/26 Unknown Unknown Active Unkn own Unknown Unknown N/A Unknown 02/21/26 Unknown Unknown Active Unkn own Patient Care team information Care Team Personnel Name: MD Manuel, Del Alcantar Position: Physician - Family Med Member Role: Primary Care Provider Address: [address] [place] [id number] Name: Chrissy Mckee Brittani Position: Pharmacist Member Role: Pharmacy - Lifetime Care Team Related Persons Name: ANDREW HUANG Name: ANDREW HUANG
--- OUTSIDE RECORDS SUMMARY | 2024-04-19 13:31 | External Medical Summary | Continuity of Care Document ---
Author Name Unknown Organization [address] Address 6 [facility] [place] [id number] Care Team Providers Care Management Trainee Name Role Phone Del Jackson Primary Care Physician [phone] Encounter [facility] [id number] Date(s): 03/10/24 - 03/10/24 [facility] [address] [place] [address] Carolyne [id number] Encounter Diagnosis Essential hypertension(Discharge Diagnosis) - 03/10/24 Aortic stenosis with bicuspid valve(Discharge Diagnosis) - 03/10/24 Diabetic peripheral neuropathy associated with type 2 diabetes mellitus (Discharge Diagnosis) - 03/10/24 Coronary artery disease involving [place] heart(Discharge Diagnosis) - 03/10/24 Status post aortic valve replacement with tissue(Discharge Diagnosis) - 03/10/24 Type 2 diabetes mellitus with hyperglycemia(Discharge Diagnosis) - 03/10/24 Discharge Disposition: Home or Self Care Attending [...] Daily, Disp# 30 tab, Refills: 3, Pharmacy: [facility] Start Date: 08/29/23 Stop Date: 12/27/23 Status: Ordered clopidogrel 75 mg oral tablet Start: 11/18/23 2:58:00 PM EDT, 1 tab, PO, Daily, Disp# 90 tab, Refills: 3, Pharmacy: [id number] Start Date: 11/18/23 [...] Daily, Disp# 30 tab, Refills: 11, Pharmacy: [id number] Start Date: 09/13/23 Stop Date: 09/07/24 Status: Ordered rosuvastatin 20 mg oral tablet Start: 12/17/23 9:03:00 AM EDT, 1 tab, PO, Daily, Disp# 90 tab, Refills: 3, Note to Pharmacy: To stop provastatin, Pharmacy: [id number] Start Date: 12/17/23 Stop Date: 12/11/24 Status: Ordered Toprol-XL 25 mg oral tablet, extended release Start: 12/17/23 9:02:00 AM EDT, 1 tab, PO, bid, Disp# 180 tab, Refills: 3, Note to Pharmacy: Change in formulation, Pharmacy: [id number] Start Date: 12/17/23 Stop Date: 12/11/24 Status: Ordered triamcinolone 0.025% topical ointment Start: 12/11/23 10:31:00 AM EDT, 1 appl, topical, bid, Disp# 60 g, Refills: 2, Pharmacy: [id number] Start Date: 12/11/23 Stop Date: 03/10/24 Status: Ordered Problem List Condition Confirmation Course Effective Dates Status H ealth Status Informant LORE positive Confirmed Active Aortic stenosis with bicuspid valve Confirmed Active Atrial hypertrophy, septal Confirmed Active Stage 3 chronic kidney disease Confirmed Active Coronary artery disease involving [place] heart Confirmed Active Grade II diastolic dysfunction [...] Effective Dates Health Status Clinical Service Informant Diabetic peripheral neuropathy associated with type 2 diabetes mellitus Discharge Diagnosis 03/10/24 Non-Specified Coronary artery disease involving [place] heart Discharge Diagnosis 03/10/24 Non-Specified Essential hypertension Discharge Diagnosis 03/10/24 Non-Specified Aortic stenosis with bicuspid valve Discharge Diagnosis 03/10/24 Non-Specified Status post aortic valve replacement with tissue Discharge Diagnosis 03/10/24 Non-Specified Type 2 diabetes mellitus with hyperglycemia Discharge Diagnosis 03/10/24 Non-Specified Procedures Procedure Date Related Diagnosis Body Site Status Cardiac surgery 1 08/23/23 Complet ed Carotid artery Completed Carpal tunnel, right Comp leted 1heart Results Laboratory List Name Date Automated Differential. 03/10/24 CBC w/ Diff. 03/10/24 Comprehensive Metabolic Panel. 03/10/24 Hemoglobin A1c w/eAG. 03/10/24 Lipid Panel. 03/10/24 Most recent to oldest [Reference Range]: 1 eGFR CKD-EPI [>=60 mL/min/1.73 m2] 56 mL /min/1.73 m2 *LOW* (03/10/24 8:05 AM) Estimated CrCl 51.06 mL/min (03/10/24 4:29 PM) BUN/Creat Ratio [10-20] 19 (03/10/24 8:05 AM) Osmolality Calc [275-300 mOsm/kg] 281 mO sm/kg (03/10/24 8:05 AM) RDW-CV [11.4-15.0 %] 12.2 % (03/10/24 8:05 AM) RDW-SD [36.4-46.3 fL] 41.7 fL (03/10/24 8:05 AM) Nuc RBC Relative Count [0.0-1.0 %] 0.0 % (03/10/24 8:05 AM) Nuc RBC Abs Count 0.00 K/uL *NA* (03/10/24 8:05 AM) Cardiac Risk ratio [0.00-4.49] 4.56 1 *HI* (03/10/24 8:05 AM) CO2 [22.0-29.0 mmol/L] 27.5 mmol/L (03/10/24 8:05 AM) MPV [7.0-10.3 fL] 10.0 fL (03/10/24 8:05 AM) Immature Gran% 0.4 % *NA* (03/10/24 8:05 AM) Neut% 50.7 % *NA* (03/10/24 8:05 AM) Lymph% 39.6 % *NA* (03/10/24 8:05 AM) Shoshone% 7.5 % *NA* (03/10/24 8:05 AM) Baso% 0.1 % *NA* (03/10/24 8:05 AM) Eos% 1.7 % *NA* (03/10/24 8:05 AM) Immat Gran, Abs [0.00-0.03 K/uL] 0.03 K/ uL (03/10/24 8:05 AM) Neut, Abs [1.52-6.68 K/uL] 3.60 K/uL (03/10/24 8:05 AM) Lymph, Abs [1.10-3.30 K/uL] 2.81 K/uL (03/10/24 8:05 AM) Shoshone, Abs [0.22-0.78 K/uL] 0.53 K/uL (03/10/24 8:05 AM) Baso, Abs [0.00-0.05 K/uL] 0.01 K/uL (03/10/24 8:05 AM) Eos, Abs [0.00-0.40 K/uL] 0.12 K/uL (03/10/24 8:05 AM) Est Avg Glucose 160 mg/dL 2 *NA* (03/10/24 8:05 AM) Anion Gap [5-15 mmol/L] 9 mmol/L (03/10/24 8:05 AM) Alb [2.9-4.6 g/dL] 4.6 g/dL (03/10/24 8:05 AM) Alk Phos [40-180 unit/L] 83 unit/L (03/10/24 8:05 AM) ALT [10-60 unit/L] 20 unit/L (03/10/24 8:05 AM) AST [7-40 unit/L] 18 unit/L (03/10/24 8:05 AM) BUN [8-25 mg/dL] 25 mg/dL (03/10/24 8:05 AM) Ca [8.5-10.5 mg/dL] 9.2 mg/dL (03/10/24 8:05 AM) Chol [100-200 mg/dL] 164 mg/dL 3 (03/10/24 8:05 AM) Cl- [97-109 mmol/L] 101 mmol/L (03/10/24 8:05 AM) Cret [0.45-1.10 mg/dL] 1.32 mg/dL 4 *HI* (03/10/24 8:05 AM) HbA1c [4.0-5.6 %] 7.2 % 5 *HI* (03/10/24 8:05 AM) Glu [50-99 mg/dL] 154 mg/dL 6 *HI* (03/10/24 8:05 AM) Hct [39.0-48.0 %] 42.4 % (03/10/24 8:05 AM) HDL [35-85 mg/dL] 36 mg/dL (03/10/24 8:05 AM) Hgb [13.3-16.2 g/dL] 13.7 g/dL (03/10/24 8:05 AM) K [3.5-5.1 mmol/L] 4.8 mmol/L (03/10/24 8:05 AM) LDL Chol, Calculated [0-99 mg/dL] 67 mg/ dL (03/10/24 8:05 AM) MCH [27.8-33.0 pg] 30.2 pg (03/10/24 8:05 AM) MCHC [32.3-36.7 g/dL] 32.3 g/dL (03/10/24 8:05 AM) MCV [81.5-98.6 fL] 93.4 fL (03/10/24 8:05 AM) Na [132-145 mmol/L] 137 mmol/L (03/10/24 8:05 AM) Plts [160-400 K/uL] 249 K/uL (03/10/24 8:05 AM) RBC [4.14-5.52 M/uL] 4.54 M/uL (03/10/24 8:05 AM) T Bili [0.2-1.2 mg/dL] 0.5 mg/dL (03/10/24 8:05 AM) Prot [5.4-8.0 g/dL] 7.2 g/dL (03/10/24 8:05 AM) TG [30-190 mg/dL] 303 mg/dL 7 *HI* (03/10/24 8:05 AM) WBC [3.85-10.15 K/uL] 7.10 K/uL (03/10/24 8:05 AM) 1Result Comment: Average risk of CHD 2Interpretive Data: Estimated Average Glucose is a calculated value from HbA1c and is representativeof the average blood glucose level in the last 4 month period. The calculation is based on the relationship derived in the ADAG study ([id number]), using NGSP referenced HbA1c levels. Decreased RBC survival will result in lower eAG results. Causes include anemia, hemolytic disease, renal or hepatic disease, and certain hemoglobinopathies. Kim ESTRADA, December 2018 3Interpretive Data: Metamizole (Dipyrone) may falsely lower test results. 4Result Comment: eGFR is calculated by the CKD-EPI Creatinine equation (2020). * eGFR (mL/min/1.73) Category/Term >or= 90 G1/Normal or high 60-89 G2/Mildly Decreased 45-59 G3a/Mildly to moderately decreased 30-44 G3b/Moderately to severely decreased 15-29 G4/Severely decreased <15 G5/Kidney Failure *Note New 2020 equation. For more information on GFR and estimating equations, visit: http://www.kidney.org/professionals/kdoqi/gfr.cfm 5Interpretive Data: The Hgb A1c test measures the average blood glucose and diabetes is diagnosed at an A1c of greater than or equal to 6.5% Normal A1c Less than 5.7 % Prediabetes 5.7 to 6.4 % Diabetes 6.5 % or higher [place] [employer] Association, Understanding A1C DOI: October 2022 6Interpretive Data: The Reference Range listed is for fasting blood Glucose only. 7Interpretive Data: Metamizole (Dipyrone) may falsely lower test [...] Safety Implantable Status Assigning Authority Unknown Unknown [id number] Unknown 05/31/26 Unknown Unknown Active Unkn own Unknown Unknown N/A Unknown 02/21/26 Unknown Unknown Active Unkn own Patient Care team information Care Team Personnel Name: MD Manuel, Del Alcantar Position: Physician - Family Med Member Role: Primary Care Provider Address: [address] [place] [address] Name: Chrissy Mckee Brittani Position: Pharmacist Member Role: Pharmacy - Lifetime Care Team Related Persons Name: ANDREW HUANG Name: ANDREW HUANG
--- OUTSIDE RECORDS SUMMARY | 2024-04-19 13:31 | External Medical Summary | Continuity of Care Document ---
Author Name Unknown Organization [facility] H134 [address] [place] [address] [place] [phone] Care Team Providers Care Dining Room Helper Name Role Phone Del Jackson Primary Care Physician [phone] Encounter [facility] [id number] Date(s): 11/13/23 - 11/13/23 [facility] 1 [facility] [id number] [facility] Heart [facility] Vascular [place] - Main Building [address] [facility] [place] [address] [place] [address] [phone] Discharge Disposition: Home or Self Care Attending Physician: MD Engel Gerald V Referring Physician: MD Engel Gerald V Allergies, Adverse Reactions, Alerts Substance Criticality Severity Reaction Reaction Severity Status simvastatin Leg pain Active gabapentin Loose stools Active OxyCONTIN Unable to assess criticality Moderate Altered behavior Rash Active Medications Aspir 81 oral delayed release tablet Start: 08/29/23 3:44:00 PM EST, 81 mg =, PO, Daily, Disp# 30 tab, Refills: 3, Pharmacy: [facility] Start Date: 08/29/23 Stop Date: 12/27/23 Status: Ordered Bumex 1 mg oral tablet Start: 10/08/23 1:14:00 PM EDT, 2 tab, PO, Daily, Disp# 60 tab, Refills: 3, Pharmacy: [id number] Start Date: 10/08/23 Stop Date: 02/05/24 Status: Ordered clopidogrel 75 mg oral tablet Start: 08/29/23 3:48:00 PM EST, 1 tab, PO, Daily, Disp# 30 tab, Refills: 0, Pharmacy: [facility] Start Date: 08/29/23 Stop Date: 09/28/23 Status: Ordered clopidogrel 75 mg oral tablet Start: 10/21/23 12:28:00 PM EDT, 1 tab, PO, Daily, Disp# 30 tab, Refills: 0, Note to Pharmacy: Refills to be given by hydrometeorologist, Pharmacy: [id number] Start Date: 10/21/23 Stop Date: 11/20/23 Status: Ordered glipiZIDE 10 mg oral tablet, [...] bid, Disp# 30 tab, Refills: 3, Pharmacy: [facility] Start Date: 08/29/23 Stop Date: 12/27/23 Status: Ordered pantoprazole 40 mg oral delayed release tablet Start: 08/29/23 3:46:00 PM EST, 1 tab, PO, Daily, Disp# 30 tab, Refills: 0, Pharmacy: [facility] Start Date: 08/29/23 Stop Date: 09/28/23 Status: Ordered pioglitazone 15 mg oral tablet Start: 09/13/23 8:20:00 AM EDT, 1 tab, PO, Daily, Disp# 30 tab, Refills: 11, Pharmacy: [facility] Start Date: 09/13/23 Stop Date: 09/07/24 Status: Ordered potassium chloride 20 mEq oral tablet, extended release Start: 09/04/23 10:07:00 AM EST, 1 tab, PO, Daily, Disp# 30 tab, Refills: 11, PRN: see order comments, Pharmacy: [id number] Start Date: 09/04/23 Stop Date: 11/27/23 Status: Ordered pravastatin 40 mg oral tablet Start: 08/29/23 3:45:00 PM EST, 1 tab, PO, qhs, Disp# 30 tab, Refills: 3, Pharmacy: [facility] Start Date: 08/29/23 Stop Date: 12/27/23 Status: Ordered Problem List Condition Confirmation Course Effective Dates Status H ealth Status Informant LORE positive Confirmed Active Aortic stenosis with bicuspid valve Confirmed Active Atrial hypertrophy, septal Confirmed Active Stage 3 chronic kidney disease Confirmed Active Coronary artery disease involving [place] [employer] heart Confirmed Active Grade II diastolic dysfunction [...] Completed Carpal tunnel, right Comp leted 1heart Social History Social History Type Response Smoking Status Former Smoker, quit > 1 yr Sex Male Implantable Device List Procedure Provider Procedure Date Device Type Site Unknown Unknown 08/23/23 Unknown Unknown Device Identifier Serial Number Lot or Batch Number Manufacturing Date Expiration Date Distinct Identification Code MRI Safety Implantable Status Assigning Authority Unknown Unknown [id number] Unknown 05/31/26 Unknown Unknown Active Unkn own Unknown Unknown N/A Unknown 02/21/26 Unknown Unknown Active Unkn own Patient Care team information Care Team Personnel Name: MD Jackson Jeffrey R Position: Physician - Family Med Member Role: Primary Care Provider Address: Address: [address] [place] [address] Name: Chrissy Veloz Ashley Position: Pharmacist Schedule II Member Role: Pharmacy - Lifetime Name: Chrissy Mckee Brittani Position: Pharmacist Schedule II Member Role: Pharmacy - Lifetime Care Team Related Persons Name: ANDREW HUANG Address: home [address] [place] [phone] Name: ANDREW HUANG Address: home [address] [place] [address] [phone]
--- OUTSIDE RECORDS SUMMARY | 2024-04-19 13:32 | External Medical Summary | Continuity of Care Document ---
Author Name Unknown Organization [facility] [address] [place] [address] [place] [phone] Care Team Providers Care Stadium Manager Name Role Phone Del Jackson Primary Care Physician [phone] [facility] [id number] Date(s): 10/21/23 - 10/21/23 [facility] [address] [address] [phone] Discharge Disposition: Home or Self Care Attending Physician: Bolivar MD, Anna L Allergies, Adverse Reactions, Alerts Substance Reaction Severity Status simvastatin Leg pain Active gabapentin Loose stools Active OxyCONTIN Altered behavior Rash Moderate Active Medications Aspir 81 oral delayed release tablet Start: 08/29/23 15:44:00 EST, 81 mg =, PO, Daily, Disp# 30 tab, Refills: 3, Pharmacy: [facility] Start Date: 08/29/23 Stop Date: 12/27/23 Status: Ordered Bumex 1 mg oral tablet Start: 10/08/23 13:14:00 EDT, 2 tab, PO, Daily, Disp# 60 tab, Refills: 3, Pharmacy: [id number] Start Date: 10/08/23 Stop Date: 02/05/24 Status: Ordered clopidogrel 75 mg oral tablet Start: 08/29/23 15:48:00 EST, 1 tab, PO, Daily, Disp# 30 tab, Refills: 0, Pharmacy: [facility] Start Date: 08/29/23 Stop Date: 09/28/23 Status: Ordered clopidogrel 75 mg oral tablet Start: 10/21/23 12:28:00 EDT, 1 tab, PO, Daily, Disp# 30 tab, Refills: 0, Note to Pharmacy: Refillsto be given by copywriter, Pharmacy: [id number] Start Date: 10/21/23 Stop Date: 11/20/23 Status: Ordered glipiZIDE 10 mg oral tablet, extended release Start: 09/13/23 7:58:00 EDT, 180 tab, 0 Refill(s) Start Date: 09/13/23 Status: Ordered magnesium gluconate 500 mg oral tablet Start: 08/14/21 10:00:00 EST, 2 tab, PO, Daily Start Date: 08/14/21 Status: Ordered metFORMIN 1000 mg oral tablet Start: 02/14/16 8:46:00, 1 tab, PO, bid Start Date: 02/14/16 Status: Ordered metoprolol tartrate 25 mg oral tablet Start: 08/29/23 15:45:00 EST, 0.5 tab, PO, bid, Disp# 30 tab, Refills: 3, Pharmacy: [facility] Start Date: 08/29/23 Stop Date: 12/27/23 Status: Ordered pantoprazole 40 mg oral delayed release tablet Start: 08/29/23 15:46:00 EST, 1 tab, PO, Daily, Disp# 30 tab, Refills: 0, Pharmacy: [facility] Start Date: 08/29/23 Stop Date: 09/28/23 Status: Ordered pioglitazone 15 mg oral tablet Start: 09/13/23 8:20:00 EDT, 1 tab, PO, Daily, Disp# 30 tab, Refills: 11, Pharmacy: [id number] Start Date: 09/13/23 Stop Date: 09/07/24 Status: Ordered potassium chloride 20 mEq oral tablet, extended release Start: 09/04/23 10:07:00 EST, 1 tab, PO, Daily, Disp# 30 tab, Refills: 11, PRN: see order comments,Pharmacy: [id number] Start Date: 09/04/23 Stop Date: 11/27/23 Status: Ordered pravastatin 40 mg oral tablet Start: 08/29/23 15:45:00 EST, 1 tab, PO, qhs, Disp# 30 tab, Refills: 3, Pharmacy: [facility] Start Date: 08/29/23 Stop Date: 12/27/23 Status: Ordered Problem List Condition Confirmation Course Effective Dates Status H ealth Status Informant LOER positive Confirmed Active Aortic stenosis with bicuspid valve Confirmed Active Atrial hypertrophy, septal Confirmed Active Stage 3 chronic kidney disease Confirmed Active Coronary artery disease involving [place] heart Confirmed Active Grade II diastolic dysfunction [...] Carpal tunnel, right Comp leted 1heart Results Orders for Microbiology Reports Name Date Blood Culture (Aerobic AND Anaerobic) (C ULTURE, BLOOD) 10/21/23 Blood Culture (Aerobic AND Anaerobic) (C ULTURE, BLOOD) 10/21/23 Microbiology Reports TEST:Blood.Cx STATUS:Unauthenticated BODY SITE: SOURCE:Blood COLLECTED DATE/TIME:10/21/23 1:11 PM Culture NO GROWTH IN 3 DAYS TEST:Blood.Cx STATUS:Auth (Verified) BODY SITE: SOURCE:Blood COLLECTED DATE/TIME:10/21/23 12:58 PM Status FINAL 10/21/2023 Social History Social History Type Response Smoking Status Former Smoker, quit > 1 yr Sex Male Implantable Device List Procedure Provider Procedure Date Device Type Site Unknown Unknown 08/23/23 Unknown Unknown Device Identifier Serial Number Lot or Batch Number Manufacturing Date Expiration Date Distinct Identification Code MRI Safety Implantable Status Assigning Authority Unknown Unknown [id number] Unknown 05/31/26 Unknown Unknown Active Unkn own Unknown Unknown N/A Unknown 02/21/26 Unknown Unknown Active Unkn own Patient Care team information Care Team Personnel Name: MD Jackson Jeffrey R Position: Physician - Family Med Member Role: Primary Care Provider Address: Address: [address] [place] [id number] [place] Name: Chrissy Veloz Ashley Position: Pharmacist Schedule II Member Role: Pharmacy - Lifetime Name: Chrissy Mckee Brittani Position: Pharmacist Schedule II Member Role: Pharmacy - Lifetime Care Team Related Persons Name: ANDREW HUANG Address: home [address] [place] [phone] Name: ANDREW HUANG Address: home [address] [place] [address] [place] [phone]
--- OUTSIDE RECORDS SUMMARY | 2024-04-19 13:32 | External Medical Summary | Continuity of Care Document ---
Author Name Unknown Organization [facility] [address] Address [address] [facility] [address] [place] [phone] Care Team Providers Care Uniform Designer Name Role Phone Francis Jacksonkillian Alcantar Primary Care Physician [phone] [facility] [id number] Date(s): 10/21/23 - 10/21/23 [facility] [address] [place] [address] [place] [phone] Discharge Disposition: Home or Self Care Attending Physician: JOSE Garcia, Renee Crisostomo Referring Physician: MD Michael, Keri Gottlieb Allergies, Adverse Reactions, Alerts Substance Reaction Severity Status simvastatin Leg pain Active gabapentin Loose stools Active OxyCONTIN Altered behavior Rash Moderate Active Medications Aspir 81 oral delayed release tablet Start: 08/29/23 15:44:00 EST, 81 mg =, PO, Daily, Disp# 30 tab, Refills: 3, Pharmacy: [facility] Start Date: 08/29/23 Stop Date: 12/27/23 Status: Ordered Bumex 1 mg oral tablet Start: 10/08/23 13:14:00 EDT, 2 tab, PO, Daily, Disp# 60 tab, Refills: 3, Pharmacy: [id number] Start Date: 10/08/23 Stop Date: 02/05/24 Status: Ordered clopidogrel 75 mg oral tablet Start: 08/29/23 15:48:00 EST, 1 tab, PO, Daily, Disp# 30 tab, Refills: 0, Pharmacy: [facility] Start Date: 08/29/23 Stop Date: 09/28/23 Status: Ordered clopidogrel 75 mg oral tablet Start: 10/21/23 12:28:00 EDT, 1 tab, PO, Daily, Disp# 30 tab, Refills: 0, Note to Pharmacy: Refillsto be given by fatback trimmer, Pharmacy: [id number] Start Date: 10/21/23 Stop Date: [...] Disp# 30 tab, Refills: 3, Pharmacy: [facility] Start Date: 08/29/23 Stop Date: 12/27/23 Status: Ordered pantoprazole 40 mg oral delayed release tablet Start: 08/29/23 15:46:00 EST, 1 tab, PO, Daily, Disp# 30 tab, Refills: 0, Pharmacy: [facility] Start Date: 08/29/23 Stop Date: 09/28/23 Status: Ordered pioglitazone 15 mg oral tablet Start: 09/13/23 8:20:00 EDT, 1 tab, PO, Daily, Disp# 30 tab, Refills: 11, Pharmacy: [id number] Start Date: 09/13/23 Stop Date: 09/07/24 Status: Ordered potassium chloride 20 mEq oral tablet, extended release Start: 09/04/23 10:07:00 EST, 1 tab, PO, Daily, Disp# 30 tab, Refills: 11, PRN: see order comments,Pharmacy: [id number] Start Date: 09/04/23 Stop Date: 11/27/23 Status: Ordered pravastatin 40 mg oral tablet Start: 08/29/23 15:45:00 EST, 1 tab, PO, qhs, Disp# 30 tab, Refills: 3, Pharmacy: [facility] Start Date: 08/29/23 Stop Date: 12/27/23 Status: Ordered Problem List Condition Confirmation Course Effective Dates Status H ealth Status Informant LORE positive Confirmed Active Aortic stenosis with bicuspid valve Confirmed Active Atrial hypertrophy, septal Confirmed Active Stage 3 chronic kidney disease Confirmed Active Coronary artery disease involving [place] heart Confirmed Active Grade II diastolic dysfunction [...] Effective Dates Health Status Clinical Service Informant Actinomycosis, unspecified 10/21/23 Non-Specified Actinomycosis, unspecified 10/21/23 Non-Specified Procedures Procedure Date Related Diagnosis Body Site Status Cardiac surgery 1 08/23/23 Complet ed Carotid artery Completed Carpal tunnel, right Comp leted 1heart Results Laboratory List Name Date Automated Differential. 10/21/23 CBC w/ Diff. 10/21/23 Comprehensive Metabolic Panel. 10/21/23 Most recent to oldest [Reference Range]: 1 eGFR CKD-EPI [>=60 mL/min/1.73 m2] 49 mL /min/1.73 m2 *LOW* (10/21/23 8:27 AM) Estimated CrCl 46.72 mL/min (10/21/23 9:44 AM) BUN/Creat Ratio [10-20] 16 (10/21/23 8:27 AM) Osmolality Calc [275-300 mOsm/kg] 284 mO sm/kg (10/21/23 8:27 AM) RDW-CV [11.4-15.0 %] 12.8 % (10/21/23 8:27 AM) RDW-SD [36.4-46.3 fL] 42.6 fL (10/21/23 8:27 AM) Nuc RBC Relative Count [0.0-1.0 %] 0.0 % (10/21/23 8:27 AM) Nuc RBC Abs Count 0.00 K/uL *NA* (10/21/23 8:27 AM) CO2 [22.0-29.0 mmol/L] 25.0 mmol/L (10/21/23 8:27 AM) MPV [7.0-10.3 fL] 9.8 fL (10/21/23 8:27 AM) Immature Gran% 0.6 % *NA* (10/21/23 8:27 AM) Neut% 44.6 % *NA* (10/21/23 8:27 AM) Lymph% 44.6 % *NA* (10/21/23 8:27 AM) Phelps% 7.6 % *NA* (10/21/23 8:27 AM) Baso% 0.2 % *NA* (10/21/23 8:27 AM) Eos% 2.4 % *NA* (10/21/23 8:27 AM) Immat Gran, Abs [0.00-0.03 K/uL] 0.04 K/ uL *HI* (10/21/23 8:27 AM) Neut, Abs [1.52-6.68 K/uL] 2.80 K/uL (10/21/23 8:27 AM) Lymph, Abs [1.10-3.30 K/uL] 2.80 K/uL (10/21/23 8:27 AM) Phelps, Abs [0.22-0.78 K/uL] 0.48 K/uL (10/21/23 8:27 AM) Baso, Abs [0.00-0.05 K/uL] 0.01 K/uL (10/21/23 8:27 AM) Eos, Abs [0.00-0.40 K/uL] 0.15 K/uL (10/21/23 8:27 AM) Anion Gap [5-15 mmol/L] 13 mmol/L (10/21/23 8:27 AM) Alb [2.9-4.6 g/dL] 4.3 g/dL (10/21/23 8:27 AM) Alk Phos [40-180 unit/L] 89 unit/L (10/21/23 8:27 AM) ALT [10-60 unit/L] 31 unit/L (10/21/23 8:27 AM) AST [7-40 unit/L] 29 unit/L (10/21/23 8:27 AM) BUN [8-25 mg/dL] 23 mg/dL (10/21/23 8: AM) Ca [8.5-10.5 mg/dL] 9.6 mg/dL (10/21/23 8:27 AM) Cl- [97-109 mmol/L] 98 mmol/L (10/21/23 8: AM) Cret [0.45-1.10 mg/dL] 1.47 mg/dL 1 *HI* (10/21/23 8: AM) Glu [50-99 mg/dL] 251 mg/dL 2 *HI* (10/21/23: AM) Hct [39.0-48.0 %] 40.8 % (10/21/23: AM) Hgb [13.3-16.2 g/dL] 13.4 g/dL (10/21/23: AM) K [3.5-5.1 mmol/L] 4.8 mmol/L (10/21/23: AM) MCH [27.8-33.0 pg] 30.0 pg (10/21/23: AM) MCHC [32.3-36.7 g/dL] 32.8 g/dL (10/21/23 8: AM) MCV [81.5-98.6 fL] 91.3 fL (10/21/23 8: AM) Na [132-145 mmol/L] 136 mmol/L (10/21/23 8: AM) Plts [160-400 K/uL] 260 K/uL (10/21/23 8: AM) RBC [4.14-5.52 M/uL] 4.47 M/uL (10/21/23 8: AM) T Bili [0.2-1.2 mg/dL] 0.4 mg/dL (10/21/23 8:27 AM) Prot [5.4-8.0 g/dL] 7.5 g/dL (10/21/23 8: AM) WBC [3.85-10.15 K/uL] 6.28 K/uL (10/21/23 8:27 AM) 1Result Comment: eGFR is calculated by the CKD-EPI Creatinine equation (2020). * eGFR (mL/min/1.73) Category/Term >or= 90 G1/Normal or high 60-89 G2/Mildly Decreased 45-59 G3a/Mildly to moderately decreased 30-44 G3b/Moderately to severely decreased 15-29 G4/Severely decreased <15 G5/Kidney Failure *Note New 2020 equation. For more information on GFR and estimating equations, visit: http://www.kidney.org/professionals/kdoqi/gfr.cfm 2Interpretive Data: The Reference Range listed is for fasting blood Glucose only. Social History Social History Type Response Smoking Status Former Smoker, quit > 1 yr Sex Male Implantable Device List Procedure Provider Procedure Date Device Type Site Unknown Unknown 08/23/23 Unknown Unknown Device Identifier Serial Number Lot or Batch Number Manufacturing Date Expiration Date Distinct Identification Code MRI Safety Implantable Status Assigning Authority Unknown Unknown [id number] Unknown 05/31/26 Unknown Unknown Active Unkn own Unknown Unknown N/A Unknown 02/21/26 Unknown Unknown Active Unkn own Patient Care team information Care Team Personnel Name: MD Manuel, Del Alcantar Position: Physician - Family Med Member Role: Primary Care Provider Address: Address: [address] [place] [address] Name: Chrissy Veloz Ashley Position: Pharmacist Schedule II Member Role: Pharmacy - Lifetime Name: Chrissy Mckee Brittani Position: Pharmacist Schedule II Member Role: Pharmacy - Lifetime Care Team Related Persons Name: ANDREW HUANG Address: home [address] [place] [phone] Name: ANDREW HUANG Address: home [address] [place] [address] [phone]
--- OUTSIDE RECORDS SUMMARY | 2024-04-19 13:32 | External Medical Summary | Continuity of Care Document ---
Author Name Unknown Organization [facility] [address] [place] [address] [place] [phone] Care Team Providers Care Application Security Developer Name Role Phone Del Jackson Primary Care Physician [phone] [facility] [id number] Date(s): 10/21/23 - 10/21/23 [facility] [address] [address] [phone] Encounter Diagnosis Body mass index [BMI] 27.0-27.9, adult(Discharge Diagnosis) - 10/21/23 Actinomyces infection(Discharge Diagnosis) - 10/21/23 Bacteremia(Discharge Diagnosis) - 10/21/23 Discharge Disposition: Home or Self Care Attending Physician: Bolivar MD, Anna L Referring Physician: MD Jackson Jeffrey R Allergies, Adverse Reactions, Alerts Substance Reaction Severity Status simvastatin Leg pain Active gabapentin Loose stools Active OxyCONTIN Altered behavior Rash Moderate Active Medications Aspir 81 oral delayed release tablet Start: 08/29/23 15:44:00 EST, 81 mg =, PO, Daily, Disp# 30 tab, Refills: 3, Pharmacy: [facility] Start Date: 08/29/23 Stop Date: 12/27/23 Status: Ordered Bumex 1 mg oral tablet Start: 10/08/23 13:14:00 EDT, 2 tab, PO, Daily, Disp# 60 tab, Refills: 3, Pharmacy: [id number] Start Date: 10/08/23 Stop Date: 02/05/24 Status: Ordered clopidogrel 75 mg oral tablet Start: 08/29/23 15:48:00 EST, 1 tab, PO, Daily, Disp# 30 tab, Refills: 0, Pharmacy: [facility] Start Date: 08/29/23 Stop Date: 09/28/23 Status: Ordered clopidogrel 75 mg oral tablet Start: 10/21/23 12:28:00 EDT, 1 tab, PO, Daily, Disp# 30 tab, Refills: 0, Note to Pharmacy: Refillsto be given by java groovy developer, Pharmacy: [id number] Start Date: 10/21/23 Stop [...] bid, Disp# 30 tab, Refills: 3, Pharmacy: [facility] Start Date: 08/29/23 Stop Date: 12/27/23 Status: Ordered pantoprazole 40 mg oral delayed release tablet Start: 08/29/23 15:46:00 EST, 1 tab, PO, Daily, Disp# 30 tab, Refills: 0, Pharmacy: [facility] Start Date: 08/29/23 Stop Date: 09/28/23 Status: Ordered pioglitazone 15 mg oral tablet Start: 09/13/23 8:20:00 EDT, 1 tab, PO, Daily, Disp# 30 tab, Refills: 11, Pharmacy: [id number] Start Date: 09/13/23 Stop Date: 09/07/24 Status: Ordered potassium chloride 20 mEq oral tablet, extended release Start: 09/04/23 10:07:00 EST, 1 tab, PO, Daily, Disp# 30 tab, Refills: 11, PRN: see order comments,Pharmacy: [id number] Start Date: 09/04/23 Stop Date: 11/27/23 Status: Ordered pravastatin 40 mg oral tablet Start: 08/29/23 15:45:00 EST, 1 tab, PO, qhs, Disp# 30 tab, Refills: 3, Pharmacy: [facility] Start Date: 08/29/23 Stop Date: 12/27/23 Status: Ordered Mental Status 10/21/23 Barriers to Learning one year Vision imp airment Mandatory Health Literacy Documentation Yes Health Literacy Communication Barriers N ever Primary Language Icelandic Problem List Condition Confirmation Course Effective Dates Status H ealth Status Informant LORE positive Confirmed Active Aortic stenosis with bicuspid valve Confirmed Active Atrial hypertrophy, septal Confirmed Active Stage 3 chronic kidney disease Confirmed Active Coronary artery disease involving [place] heart Confirmed Active Grade II diastolic dysfunction [...] Effective Dates Health Status Clinical Service Informant Body mass index [BMI] 27.0-27.9, adult Discharge Diagnosis 10/21/23 Non-Specified Actinomyces infection Discharge Diagnosis 10/21/23 Bacteremia Discharge Diagnosis 10/21/23 Procedures Procedure Date Related Diagnosis Body Site Status Cardiac surgery 1 08/23/23 Complet ed Carotid artery Completed Carpal tunnel, right Comp leted 1heart Results Orders for Microbiology Reports Name Date Blood Culture (Aerobic AND Anaerobic) (C ULTURE, BLOOD) 10/21/23 Microbiology Reports TEST:Blood.Cx STATUS:Unauthenticated BODY SITE: SOURCE:Blood COLLECTED DATE/TIME:10/21/23 1:12 PM Culture NO GROWTH IN 3 DAYS Vital Signs Most recent to oldest [Reference Range]: 1 Height 175.5 cm (10/21/23 11:02 AM) Patient Weight 85.2 kg (10/21/23 11:02 AM) Body Mass Index 27.66 kg/m2 (10/21/23 11:02 AM) Temperature [36.5-37.9 DegC] 36.4 DegC *LOW* (10/21/23 11:02 AM) Heart Rate 87 bpm (10/21/23 11:02 AM) Respiratory Rate 16 br/min (10/21/23 11:02 AM) Blood Pressure 172/82mmHg (10/21/23 11:02 AM) Cuff Pulse Pressure 90 mmHg (10/21/23 11:02 AM) BP Location # 1 Right Arm (10/21/23 11:02 AM) Social History Social History Type Response Smoking Status Former Smoker, quit > 1 yr Sex Male Implantable Device List Procedure Provider Procedure Date Device Type Site Unknown Unknown 08/23/23 Unknown Unknown Device Identifier Serial Number Lot or Batch Number Manufacturing Date Expiration Date Distinct Identification Code MRI Safety Implantable Status Assigning Authority Unknown Unknown [id number] Unknown 05/31/26 Unknown Unknown Active Unkn own Unknown Unknown N/A Unknown 02/21/26 Unknown Unknown Active Unkn own Patient Care team information Care Team Personnel Name: MD Manuel, Del Alcantar Position: Physician - Family Med Member Role: Primary Care Provider Address: Address: [address] [place] [address] Name: Chrissy Veloz Ashley Position: Pharmacist Schedule II Member Role: Pharmacy - Lifetime Name: Chrissy Mckee Brittani Position: Pharmacist Schedule II Member Role: Pharmacy - Lifetime Care Team Related Persons Name: ANDREW HUANG Address: home [address] [place] [phone] Name: ANDREW HUANG Address: home [address] [place] [address] [phone]
--- NOTE | 2024-04-19 13:33 | Cardiac Catheterization ---
[facility] Data: Sinker Puller Cardiac Status Clinical evaluation leading to the procedure CAD Presenation: No Sxs, No angina Diagnostic Physicians Name: Renard Dominguez MD, PhD Closure Device Recommendations: Management Recommendatons (Probable implant permanent pacemaker tomorrow) Cardiac Cath Procedure Full Procedure Date April 19, 2024 Pre-Procedure Diagnosis Pre-Procedure Diagnosis: Arrhythmia AUC Score AUC Score: 07 Post-Procedure Diagnosis Post-Procedure Diagnosis: Cardiothoracic Finding (Successful transvenous pacer) Procedure(s) Performed Procedure(s) Performed: Temporary Pacemaker and Ultrasound Guided Vascular Access Mounter Clarinets Renard Dominguez MD, PhD Estimated Blood Loss Estimated Blood Loss: 5 cc Medication(s) Medication(s): Fentanyl, Lidocaine 1% and Versed Summary of Findings Brief description: Patient was brought to the cardiac catheterization suite where he was shaved and prepped in a sterile fashion. Sedated using IV Versed and fentanyl. Soft tissues of right neck were anesthetized using 2 mL of 1% Xylocaine. Using the ultrasound for guidance and a 4 Bhutanese stiff micropuncture kit the right internal jugular was accessed. A 7 Bhutanese sheath was inserted and exchanged for the micropuncture sheath over a 0.035 J-tip wire. A 7 [place]anese Bard temporary pacing catheter was then inserted and the balloon was inflated. Under fluoroscopic guidance the lead was passed across the tricuspid valve into the right ventricle. We did have difficulty advancing to the apex and therefore paced the septum. Difficulty was likely secondary to the tricuspid valve apparatus. We attempted to readjust the placement but the patient was asystolic when not transvenously paced. Therefore we left the pacer lead in place. He was paced at 80 bpm with a current of 10 mA. The sheath was sutured in place. The pacer lead was at 38 cm's and this was also secured in place with suture. A Biopatch was placed over the entrance and the entire thing was dressed with Tegaderm. Patient remained hemodynamically stable and was therefore admitted to the ICU for further workup and management. This ended the case. Hemodynamics Rest Ao:: Invasive not obtained Final Ao: Invasive not obtained LV: Invasive not obtained Recommendations Recommendations: Management Recommendatons (Probable implant permanent pacemaker tomorrow) Radiation Exposure (mGy) 485 mGy, fluoroscopy time 6.4 minutes Contrast (mls) None Anesthesia 1 mg Versed, 25 mcg fentanyl IV. Start 1202, end 1235 Disposition ICU I attest to the content of the Intraoperative Record and any orders documented therein. Any exceptions are noted below. [facility] Card Cath Procedure Codes Therapeutic Services & Ancillary Procedure 1: Cardiovascular Tx and Anc Procedures: 59798 Temp Pacer Insert Procedure 2: Cardiovascular Tx and Anc Procedures: 03727 Ultrasonic Guidance Vascular Access PG Care Time/CCT Total # of Minutes Spent Total Time Spent with Patient: Total time spent is greater than 50% in coordination of care (as documented) at patient's floor/unit and/or counseling patient:
[2024-04-19] MEDS ORDERED: GLUCOSE 40% GEL 15 GM TUBE PO PRN (13:38)
[2024-04-19] MEDS ORDERED: CARBOHYDRATES FOR HYPOGLYCEMIA PO PRN (13:38)
[2024-04-19] MEDS ORDERED: GLUCAGON FOR INJ 1 MG VIAL SQ PRN (13:38)
[2024-04-19] MEDS ORDERED: POLYETHYLENE (MIRALAX) 17 GM PACK PO PRN (13:38)
[2024-04-19] MEDS ORDERED: METOPROLOL TARTRATE 1 MG/ML VIAL IV PRN (13:38)
[2024-04-19] MEDS ORDERED: DEXTROSE 50% 50 ML SYRINGE IV PRN (13:38)
[2024-04-19] MEDS ORDERED: GLUCOSE 10 TAB/TUBE PO PRN (13:38)
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
[2024-04-19] MEDS: LACTATED RINGER'S 1,000 ML IV SCH (14:31)
[2024-04-19] MEDS: ICU Protocol for HYPERglycemia SCH (14:31)
[2024-04-19] MEDS: INSULIN ASPART PER UNIT CHARGE SC SCH (16:31)
--- NOTE | 2024-04-19 17:12 | Critical Care Consultation ---
Date of Consultation April 19, 2024 Assessment & Plan (1) Complete heart block: Plan Impression: 79-year-old male status post recent bypass AVR now with third-degree heart block requiring temporary transvenous pacing. He is now hemodynamically stable and without any complaints. Recommendations: 1. Third-degree heart block: Currently paced. Underlying rhythm appears to persist with third-degree AV block. N.p.o. after midnight for possible pacemaker implantation in the a.m. Keep on bedrest until temporary pacing wire removed 2. Coronary disease status post recent bypass. Continue outpatient medications. Mild elevation in troponin likely secondary to supply/demand mismatch and pacing. 3. Leukocytosis: Suspect reactive. Continue to follow at this point time. No indication for antibiotics. 4. Acute on chronic kidney disease. Baseline creatinine unknown. Currently at 1.6 with a BUN of 38. Other electrolytes and acid-base status appear well compensated. Continue to follow at this point time and replace electrolytes as needed. If kidney function continues to deteriorate or worsens from baseline, low threshold for nephrology consultation. 5. TSH elevated at 10.6. Free T4 normal at 0.92. Follow and recommend repeat checking in the outpatient setting in 4 to 6 weeks. 6. Glycemic control per protocol Will continue to follow in the ICU pending permanent solution to his third- degree heart block. Thanks for the opportunity participating the care of this patient. Feel free to contact us with questions or concerns History of Present Illness Attending Physician: Arnulfo Robbins MD History of Present Illness Asked by hospitalist to assist in evaluation management this patient admitted with third-degree heart block status post temporary pacing wire. History is obtained from discussion with the patient, admitting service, and reviewed electronic medical record. Patient is a 79-year-old male status post recent aortic valve replacement with two-vessel bypass at [place]. He had a syncopal episode while driving. He was brought to the emergency room where he was found to be in complete heart block. He is taken to the cardiac catheterization where he underwent transvenous pacemaker implantation. He was paced at 80. He was transferred to the ICU paced and awake alert and conversant. The patient reports that after his cardiac surgery he had a temporary pacemaker and apparently was on a heart monitor at home for period of time and was then advised that it look like he was doing okay. The patient currently denies any chest pain, palpitations, shortness of breath, nausea, vomiting, nor diarrhea. He is not having any pain at the temporary wire pacemaker insertion site. Allergies Allergy/AdvReac Type Severity Reaction Status Date / Time Unable to Assess Allergy Unverified 04/19/24 11:42 Home Medications Medication Instructions Recorded Confirmed Type clopidogrel 75 mg tablet 75 mg PO DAILY 04/19/24 04/19/24 History glipizide 10 mg tablet, extended 10 mg PO BID 04/19/24 04/19/24 History release 24 hr metformin 1,000 mg tablet 1,000 mg PO BID 04/19/24 04/19/24 History metoprolol succinate 25 mg 25 mg PO BID 04/19/24 04/19/24 History tablet,extended release 24 hr pioglitazone 30 mg tablet 30 mg PO DAILY 04/19/24 04/19/24 History rosuvastatin 20 mg tablet 20 mg PO DAILY 04/19/24 04/19/24 History Patient History Social History Smoking Status: Former smoker Tobacco Type: Cigarettes Hx Alcohol Use: Yes Alcohol type: beer Hx Substance Use: No Preferred Language: Amharic Communication Ability: Effective Life Coach Required: No Beliefs That Will Affect Care: None Current Living Situation: Spouse Feels Safe at Home: Yes Assistive Devices: Cane, Denture - Upper, Denture - Lower, Glasses and Walker Review of Systems Review of Systems: Please refer to admission H&P. No additions or deletions Physical Exam Constitutional: WD/WN, vitals as above Neck: trachea midline, no thyromegaly Respiratory: normal respiratory effort, lungs clear to auscultation Cardiovascular: Rate/Rhythm: regular rate 100% paced. When the pacemaker is pause d, the patient has evidence of continued third-degree AV block Gastrointestinal (Abdomen): normal bowel sounds, soft, nontender, no hepatosplenomegaly Musculoskeletal: Extremities: extremities normal to inspection Skin: no rashes, warm and dry Neurologic: Nonfocal exam Lymphatic: no cervical lymphadenopathy Results & Data Results & Data Vital Signs (Past 12 Hours) Vital Signs Temp Pulse Pulse Resp BP BP Pulse Ox 04/19/24 14:30 79 14 154/68 H 98 04/19/24 14:03 80 19 97 04/19/24 14:00 158/66 H 04/19/24 13:54 80 14 99 04/19/24 13:53 144/67 H 04/19/24 13:53 04/19/24 13:42 80 19 98 04/19/24 13:30 80 24 99 04/19/24 13:30 36.5 C 04/19/24 13:21 80 24 97 04/19/24 12:59 36.5 C 78 15 148/78 H 98 04/19/24 11:36 80 18 141/70 H 100 04/19/24 11:29 100 04/19/24 11:28 80 16 100 04/19/24 11:27 118/45 L 04/19/24 11:17 80 16 112/41 L 100 04/19/24 11:10 80 20 100 04/19/24 11:09 80 18 116/52 L 95 04/19/24 11:09 80 04/19/24 10:57 90 16 138/98 94 04/19/24 10:37 95 H 20 99 O2 Del Method O2 Flow Rate 04/19/24 14:30 04/19/24 14:03 04/19/24 14:00 04/19/24 13:54 Nasal Cannula 2 04/19/24 13:53 04/19/24 13:53 Nasal Cannula 2 04/19/24 13:42 04/19/24 13:30 04/19/24 13:30 04/19/24 13:21 04/19/24 12:59 Room Air 04/19/24 11:36 Nasal Cannula 4 04/19/24 11:29 Nasal Cannula 6 04/19/24 11:28 Nasal Cannula 4 04/19/24 11:27 04/19/24 11:17 Nasal Cannula 4 04/19/24 11:10 Nasal Cannula 6 04/19/24 11:09 Nasal Cannula 4 04/19/24 11:09 04/19/24 10:57 04/19/24 10:37 Room Air Critical Care Results & Data Vital Signs (Past 12 Hours) Vital Signs Temp Pulse Pulse Resp BP BP Pulse Ox 04/19/24 14:30 79 14 154/68 H 98 04/19/24 14:03 80 19 97 04/19/24 14:00 158/66 H 04/19/24 13:54 80 14 99 04/19/24 13:53 144/67 H 04/19/24 13:53 04/19/24 13:42 80 19 98 04/19/24 13:30 80 24 99 04/19/24 13:30 36.5 C 04/19/24 13:21 80 24 97 04/19/24 12:59 36.5 C 78 15 148/78 H 98 04/19/24 11:36 80 18 141/70 H 100 04/19/24 11:29 100 04/19/24 11:28 80 16 100 04/19/24 11:27 118/45 L 04/19/24 11:17 80 16 112/41 L 100 04/19/24 11:10 80 20 100 04/19/24 11:09 80 18 116/52 L 95 04/19/24 11:09 80 04/19/24 10:57 90 16 138/98 94 04/19/24 10:37 95 H 20 99 O2 Del Method O2 Flow Rate 04/19/24 14:30 04/19/24 14:03 04/19/24 14:00 04/19/24 13:54 Nasal Cannula 2 04/19/24 13:53 04/19/24 13:53 Nasal Cannula 2 04/19/24 13:42 04/19/24 13:30 04/19/24 13:30 04/19/24 13:21 04/19/24 12:59 Room Air 04/19/24 11:36 Nasal Cannula 4 04/19/24 11:29 Nasal Cannula 6 04/19/24 11:28 Nasal Cannula 4 04/19/24 11:27 04/19/24 11:17 Nasal Cannula 4 04/19/24 11:10 Nasal Cannula 6 04/19/24 11:09 Nasal Cannula 4 04/19/24 11:09 04/19/24 10:57 04/19/24 10:37 Room Air Lab & Micro Results (Past 24 Hours) RBC 4.52 M/uL (4.70-6.10) L 04/19/24 WBC 14.50 K/ul (4.8-10.8) H 04/19/24 Hgb 13.5 g/dl (14.0-18.0) L 04/19/24 Hct 42.1 % (42.0-52.0) 04/19/24 MCV 93.1 fL (80.0-100.0) 04/19/24 MCH 29.9 pg (25.0-34.0) 04/19/24 MCHC 32.1 g/dL (32.0-36.0) 04/19/24 RDW Standard Deviation 43.8 fL (36.4-46.3) 04/19/24 RDW Coefficient of Variation 12.8 % (11.5-14.5) 04/19/24 Plt Count 239 K/uL (130-400) 04/19/24 MPV 10.7 fL (9.4-12.4) 04/19/24 Neutrophils (%) (Auto) 42.4 % 04/19/24 Lymphocytes (%) (Auto) 48.3 % 04/19/24 Monocytes # (Auto) 0.96 K/uL (0.11-0.59) H 04/19/24 Eosinophils # (Auto) 0.24 K/uL (0.00-0.50) 04/19/24 Immature Granulocyte % (Auto) 0.8 % 04/19/24 Neutrophils # (Auto) 6.15 K/uL (1.40-6.50) 04/19/24 Lymphocytes # (Auto) 7.00 K/uL (1.20-3.40) H 04/19/24 Monocytes # (Auto) 0.96 K/uL (0.11-0.59) H 04/19/24 Eosinophils # (Auto) 0.24 K/uL (0.00-0.50) 04/19/24 Basophils # (Auto) 0.03 K/uL (0.00-0.20) 04/19/24 Immature Granulocyte # (Auto) 0.12 K/uL (0.01-0.20) 4 Na 138 mmol/L (136-145) 04/19/24 K 4.5 mmol/L (3.5-5.1) 04/19/24 Cl 105 mmol/L (98-107) 04/19/24 CO2 24 mmol/L (21-32) 04/19/24 Anion Gap 9 (3-11) 04/19/24 BUN 38 mg/dl (6-23) H 04/19/24 Creatinine 1.69 mg/dl (0.6-1.4) H 04/19/24 BUN/Creatinine Ratio 22.5 (10-20) H 04/19/24 Glu 296 mg/dl (70-99(Fasting)) H 04/19/24 Ca 9.7 mg/dl (8.6-10.3) 04/19/24 Phosphorus Level 4.2 mg/dl (2.5-4.9) 04/19/24 Total Bilirubin 0.4 mg/dl (0.2-1.0) 04/19/24 AST 26 U/L (13-39) 04/19/24 ALT 29 U/L (7-52) 04/19/24 Alkaline Phosphatase 71 U/L (34-104) 04/19/24 TP 6.8 gm/dl (6.0-8.3) 04/19/24 Albumin 4.3 gm/dl (3.4-5.0) 04/19/24 Globulin 2.5 gm/dl (2.5-4.0) 04/19/24 Albumin/Globulin Ratio 1.7 (0.9-2) 04/19/24 Mg 2.8 mg/dl (1.7-2.4) H 04/19/24 11:37 Calcium Level 9.7 mg/dl (8.6-10.3) 04/19/24 11:37 Prothromb Time International Ratio 1.1 (0.9-1.1) 04/19/24 11:3 7 Diagnostic Findings (Past 24 Hours) Chest X-Ray 04/19/24 11:28 XR chest 1V portable CLINICAL HISTORY: syncope TECHNIQUE: Single frontal radiograph of the chest was obtained. Comparison: None available at the time of this dictation. FINDINGS: Median sternotomy wires are unchanged. Atrial appendage clip is seen. Cardiomegaly is noted. The aortic arch is calcified. The lungs are clear. No evidence of pleural effusion or pneumothorax. IMPRESSION: No acute chest disease. Cardiomegaly is noted. ACT 112: Negative or not required by law. Electronically signed by: Mat Stratton M.D. 04/19/2024 11:50 AM I & O Totals 24 Hours 04/18/24 04/19/24 04/20/24 06:59 06:59 06:59 Intake Total 560 / 560 Balance 560 / 560 Cumulative 04/19/24 10:29 thru 04/19/24 13:56 Intake Total 560 Balance 560 RT Ventilator Mngmt (Last Documented) Ventilator Ordered Settings Respiratory Rate 14 04/19/24 14:30 Ventilator - PT Measurements Respiratory Rate 14 Coding Level of Care Code 11535 IN/OBS CONSULT LVL 3,45M Diagnoses Complete heart block I44.2
[2024-04-19 17:51] LABS: Appearance Urine Clear (Clear); Bacteria Urine Automated None Seen (None Seen); Bilirubin Urine Negative (Negative); Blood Urine Negative (Negative); Color Urine Yellow; Epithelial Cell Urine Auto 0-2 /hpf (0-2); Glucose Urine UA 1+ (Negative); Ketones Urine Negative (Negative); Leukocyte Esterase Urine Negative (Negative); Nitrite Urine Negative (Negative); Protein Urine 1+ (Negative); RBC Urine Automated 0-2 /hpf (0-2); Specific Gravity Urine 1.014 (1.000-1.030); Urobilinogen Urine Negative (Negative); WBC Urine Automated 0-5 /hpf (0-5); pH Urine 5.5 (4.5-7.5)
[2024-04-20 04:35] LABS: Hematocrit (blood only) 36.9 % (42.0-52.0); Hemoglobin 11.9 g/dl (14.0-18.0); Mean Corpuscular Hemoglobin 29.5 pg (25.0-34.0); Mean Corpuscular Hgb Conc 32.2 g/dL (32.0-36.0); Mean Corpuscular Volume 91.3 fL (80.0-100.0); Platelet Count 202 K/uL (130-400); RDW Coefficient of Variation 12.4 % (11.5-14.5); RDW Standard Deviation 41.2 fL (36.4-46.3); Red Blood Count 4.04 M/uL (4.70-6.10); White Blood Count 9.35 K/ul (4.8-10.8)
[2024-04-20 04:51] LABS: BUN Creatinine Ratio 25.4 (10-20); Calcium 9.2 mg/dl (8.6-10.3); Creatinine Clr Calc Pharmacy 50.7 ml/min; Potassium 4.6 mmol/L (3.5-5.1)
[2024-04-20] MEDS ORDERED: Nursing to Pharmacy Communication SCH ×2 (05:00→19:15)
[2024-04-20] MEDS: INSULIN ASPART PER UNIT CHARGE SC SCH ×2 (07:03→20:16)
[2024-04-20 07:56] LABS: Estimated Average Glucose 169 mg/dl; Hemoglobin A1C 7.5 % (4.5-5.6)
[2024-04-20] MEDS: PANTOprazole 40 MG TAB PO SCH (09:49)
[2024-04-20] MEDS: CLOPIDOGREL BISULFATE 75 MG TAB PO SCH (09:49)
[2024-04-20] MEDS: ROSUVASTATIN CALCIUM 20 MG TAB PO SCH (09:49)
--- NOTE | 2024-04-20 11:56 | Critical Care Progress Note ---
Date of Service April 20, 2024 Assessment & Plan (1) Complete heart block: (2) CAD (coronary artery disease): Plan Impression: 79-year-old male status post recent bypass AVR now with third-degree heart block requiring temporary transvenous pacing. He is now hemodynamically s table and without any complaints. Recommendations: 1. Third-degree heart block: Currently paced. Underlying rhythm appears to persist with third-degree AV block. Patient to undergo permanent pacemaker placement this afternoon. Remains NPO. 2. Coronary disease status post recent bypass. Continue outpatient medications. Mild elevation in troponin likely secondary to supply/demand mismatch and pacing. Currently holding antiplatelets due to anticipated pacemaker placement. 3. Leukocytosis: Resolved. 4. Acute on chronic kidney disease. Urine output improving. Creatinine improved as well. Will hold on further fluid resuscitation to avoid pulmonary edema. Patient saturating 90% on room air and his blood pressures have been adequate. 5. TSH elevated at 10.6. Free T4 normal at 0.92. Follow and recommend repeat checking in the outpatient setting in 4 to 6 weeks. 6. Glycemic control per protocol. Patient can transition out of ICU once permanent pacemaker is placed. Admission and Anticipated Discharge Date Admission Date: April 19, 2024 Subjective Patient seen and examined. He is currently laying in bed. He has a right IJ transvenous pacemaker set at 80 bpm and 10 mA. He denies any overt complaints including shortness of breath or chest pain. No recent fevers, chills or night sweats. Review of Systems Review of Systems: All systems reviewed & are unremarkable except as noted in HPI & below Physical Exam Physical Exam: Constitutional: Patient appears to be of their stated age. Patient is in no apparent distress. Patient is well-developed. Eyes: Pupils are equal round and reactive to light. Conjunctivae are normal. Anicteric sclera. Ears nose, mouth and throat: Mallampati class 2. Normal posterior oropharynx. Uvula is midline. Neck: Trachea is midline. Visual inspection is normal. Respiratory: Clear to auscultation bilaterally. No use of accessory muscles. No significant clubbing noted. Cardiovascular: Regular rate and rhythm. No murmurs. No edema. RIJ transvenous pacemaker in place. Gastrointestinal: Normal bowel sounds, soft, nontender and nondistended. No hepatosplenomegaly noted. Musculoskeletal: No cyanosis. Patient is able to move all extremities. Strength is 5 out of 5 in the upper and lower extremities. Skin: No rashes, warm dry and intact. Neurologic: No obvious focal neurological deficits seen. Psychiatric: Alert and oriented x3 with a euthymic affect. Results & Data Results & Data Vital Signs (Past 12 Hours) Vital Signs Temp Pulse Resp BP Pulse Ox O2 Del Method O2 Flow Rate 04/20/24 11:00 80 18 150/69 H 90 Room Air 04/20/24 10:06 82 19 98 04/20/24 09:00 82 18 98 04/20/24 09:00 163/72 H 04/20/24 08:12 78 19 96 04/20/24 08:00 166/66 H 04/20/24 08:00 36.7 C 04/20/24 07:57 80 17 96 04/20/24 07:00 158/103 H 04/20/24 07:00 80 18 158/103 H 98 Nasal Cannula 2 04/20/24 04:01 151/81 H 04/20/24 04:00 36.6 C Nasal Cannula 2 04/20/24 04:00 82 19 98 04/20/24 03:01 141/82 H 04/20/24 03:00 36.7 C Nasal Cannula 2 04/20/24 03:00 80 17 98 04/20/24 02:00 36.6 C Nasal Cannula 2 04/20/24 02:00 80 18 97 04/20/24 02:00 151/88 H 04/20/24 01:00 36.7 C Nasal Cannula 2 04/20/24 01:00 161/63 H 04/20/24 01:00 81 17 99 04/20/24 00:06 80 17 97 04/20/24 00:00 36.9 C Nasal Cannula 2 04/20/24 00:00 81 Coding Level of Care Code 16174 SUB INP/OBS CARE 2/35MIN Diagnoses Complete heart block I44.2 CAD (coronary artery disease) I25.10
--- NOTE | 2024-04-20 13:00 | Hospitalist Progress Note ---
<Statement entered by Natasha Espinoza MD - 04/20/24 18:15> I have reviewed vital signs, chart notes, labs and imaging. I have personally seen, evaluated and examined the patient. I have also discussed the management of the patient with the [facility] and I agree with the exam findings documented in the history and physical examination and the documented assessment and plan unless otherwise stated below. Larry is awake and alert transvenous pacemaker is present in his right IJ, his family is in the room and I updated them. He will have pacemaker later today. He has increased high-sensitivity troponin which is likely myocardial demand ischemia related to hypoperfusion from his complete heart block rather than acute coronary syndrome Date of Service April 20, 2024 Assessment & Plan (1) Complete heart block: Plan: 79 y/o pt w/ h/o recent CABG x 2 and bioprosthetic aortic valve repair (08/2023) who presented to ED with concern for syncope and episodes of loss of consciousness. Required administration of epinephrine, and identified to have a heart block, and was taken emergently to the [facility]. - EKG- 04/19 HR 17, complete heart block; repeat 04/20 significant changes with HR 80, ventricular paced complexes, LAD, RBBB, LVH - Echocardiogram pending results - Lyme screen negative - Temporary pacemaker placed 04/19 - Permanent pacemaker to be placed today - Cardiology consulted and following Appreciate cardiology input and recs (2) Coronary artery disease: Plan: Patient has a history of recent revascularization; CABG x 2 + bioprosthetic aortic valve repair (08/2023). On Plavix and metoprolol at home - Takes rosuvastatin 20 mg for risk factor reduction - Holding p.o. metoprolol - Continue metoprolol tartrate IV as needed with outlined parameters - Troponin continues to uptrend (206 -> 929.9); recent cardiac procedure as well as profound bradycardia rather than ACS; no chest pain; EKG without ST elevation or depression - Per cardiology recs- will continue conservative medical management with Plavix and rosuvastatin BUT HOLD antiplatelet until after pacemaker placement (3) Diabetes: Plan: On home glipizide and pioglitazone; ? Metformin - Hold glipizide and pioglitazone; ? Metformin hold - ISS - N.p.o. for preparation of upcoming surgery Plan Continue Protonix 40 mg Abnormal thyroid function on labs- TSH 10.6, T4 WNL 0.92; outpatient follow-up recommended Dispo: ICU, pending pacemaker insertion VTE prophylaxis: Heparin Code: Full Admission and Anticipated Discharge Date Admission Date: April 19, 2024 Subjective Pt is laying in bed at time of visit. States that he is not experiencing any symptoms at this time to include chest pain, shortness of breath, palpitations, headache, or dizziness. No reports from nursing. Review of Systems Review of Systems: All systems reviewed & are unremarkable except as noted in Subjective Physical Exam Constitutional: no acute distress Respiratory: normal respiratory effort, lungs clear to auscultation Cardiovascular: RRR, no murmur, no edema Pacer in place, right side Gastrointestinal (Abdomen): normal bowel sounds, soft, nontender, no hepatosplenomegaly Psychiatric: A+Ox3, euthymic affect Results & Data Results & Data Vital Signs (Past 12 Hours) Vital Signs Temp Pulse Resp BP Pulse Ox O2 Del Method O2 Flow Rate 04/20/24 11:00 80 18 150/69 H 90 Room Air 04/20/24 10:06 82 19 98 04/20/24 09:00 82 18 98 04/20/24 09:00 163/72 H 04/20/24 08:12 78 19 96 04/20/24 08:00 166/66 H 04/20/24 08:00 36.7 C 04/20/24 07:57 80 17 96 04/20/24 07:00 158/103 H 04/20/24 07:00 80 18 158/103 H 98 Nasal Cannula 2 04/20/24 04:01 151/81 H 04/20/24 04:00 36.6 C Nasal Cannula 2 04/20/24 04:00 82 19 98 04/20/24 03:01 141/82 H 04/20/24 03:00 36.7 C Nasal Cannula 2 04/20/24 03:00 80 17 98 04/20/24 02:00 36.6 C Nasal Cannula 2 04/20/24 02:00 80 18 97 04/20/24 02:00 151/88 H 04/20/24 01:00 36.7 C Nasal Cannula 2 04/20/24 01:00 161/63 H 04/20/24 01:00 81 17 99 Laboratory Results Abnormal lab results 04/19/24 04/19/24 04/19/24 Range/Units 14:15 16:23 16:35 RBC (4.70-6.10) M/uL Hgb (14.0-18.0) g/dl Hct (42.0-52.0) % Chloride (98-107) mmol/L BUN (6-23) mg/dl BUN/Creatinine Ratio (10-20) POC Glucose 192 H (70-99) mg/dl Hemoglobin A1c (4.5-5.6) % Troponin I High Sens 313.1 H* D (0-20) pg/ml Urine Protein 1+ H (Negative) Urine Glucose (UA) 1+ H (Negative) U Hyaline Cast (Auto) 11-20 H (0-2) /lpf 04/19/24 04/19/24 04/20/24 Range/Units 19:59 21:07 01:32 RBC (4.70-6.10) M/uL Hgb (14.0-18.0) g/dl Hct (42.0-52.0) % Chloride (98-107) mmol/L BUN (6-23) mg/dl BUN/Creatinine Ratio (10-20) POC Glucose 138 H (70-99) mg/dl Hemoglobin A1c (4.5-5.6) % Troponin I High Sens 648.0 H* D 862.5 H* D (0-20) pg/ml Urine Protein (Negative) Urine Glucose (UA) (Negative) U Hyaline Cast (Auto) (0-2) /lpf 04/20/24 04/20/24 04/20/24 Range/Units 04:21 08:05 12:09 RBC 4.04 L (4.70-6.10) M/uL Hgb 11.9 L (14.0-18.0) g/dl Hct 36.9 L (42.0-52.0) % Chloride 108 H (98-107) mmol/L BUN 34 H (6-23) mg/dl BUN/Creatinine Ratio 25.4 H (10-20) POC Glucose 109 H (70-99) mg/dl Hemoglobin A1c 7.5 H (4.5-5.6) % Troponin I High Sens 929.9 H* (0-20) pg/ml Urine Protein (Negative) Urine Glucose (UA) (Negative) U Hyaline Cast (Auto) (0-2) /lpf PG Care Time/CCT Total # of Minutes Spent Total Time Spent with Patient: Total time spent is greater than 50% in coordination of care (as documented) at patient's floor/unit and/or counseling patient: [place] [address] SUB INP/OBS CARE 2/35MIN Patient Type Established History Expanded Problem Focused Exam Expanded Problem Focused Medical Decision Making Moderate Complexity Diagnoses Complete heart block I44.2 Coronary artery disease I25.10 Diabetes E11.9 Time Spent (min) 35
--- NOTE | 2024-04-20 14:52 | Pre Anesthesia Assessment ---
Date of Service April 20, 2024 Pre Sedation Assessment Vital Signs Temp Pulse Pulse Resp BP Pulse Ox O2 Del Method 04/20/24 14:25 69 16 96 Nasal Cannula 04/20/24 13:09 81 16 99 Nasal Cannula 04/20/24 13:01 151/66 H 04/20/24 12:54 79 18 95 04/20/24 12:00 82 20 91 04/20/24 12:00 159/71 H 04/20/24 11:00 80 18 150/69 H 90 Room Air 04/20/24 10:06 82 19 98 04/20/24 09:00 82 18 98 04/20/24 09:00 163/72 H 04/20/24 08:12 78 19 96 04/20/24 08:00 166/66 H 04/20/24 08:00 36.7 C 04/20/24 07:57 80 17 96 04/20/24 07:00 158/103 H 04/20/24 07:00 80 18 158/103 H 98 Nasal Cannula 04/20/24 04:01 151/81 H 04/20/24 04:00 36.6 C Nasal Cannula 04/20/24 04:00 82 19 98 04/20/24 03:01 141/82 H 04/20/24 03:00 36.7 C Nasal Cannula 04/20/24 03:00 80 17 98 04/20/24 02:00 36.6 C Nasal Cannula 04/20/24 02:00 80 18 97 04/20/24 02:00 151/88 H 04/20/24 01:00 36.7 C Nasal Cannula 04/20/24 01:00 161/63 H 04/20/24 01:00 81 17 99 04/20/24 00:06 80 17 97 04/20/24 00:00 36.9 C Nasal Cannula 04/20/24 00:00 81 04/19/24 23:00 36.5 C Nasal Cannula 04/19/24 23:00 80 18 99 04/19/24 23:00 144/87 H 04/19/24 22:06 80 16 99 04/19/24 22:00 36.8 C Nasal Cannula 04/19/24 22:00 156/78 H 04/19/24 21:48 80 18 99 04/19/24 21:09 80 30 H 100 04/19/24 21:00 36.7 C Nasal Cannula 04/19/24 21:00 165/74 H 04/19/24 20:54 80 24 98 04/19/24 20:15 80 18 99 04/19/24 20:00 36.6 C Nasal Cannula 04/19/24 20:00 141/119 H 04/19/24 19:57 80 20 99 04/19/24 19:09 82 16 99 04/19/24 19:00 36.8 C Nasal Cannula 04/19/24 19:00 159/71 H 04/19/24 18:51 80 13 99 04/19/24 18:15 80 12 99 04/19/24 18:00 155/67 H 04/19/24 17:45 80 17 96 04/19/24 17:30 80 15 99 04/19/24 17:09 80 23 147/63 H 99 04/19/24 16:45 80 22 97 04/19/24 16:00 151/65 H 04/19/24 16:00 80 13 99 04/19/24 16:00 36.5 C 04/19/24 15:39 80 24 98 04/19/24 15:22 155/65 H 04/19/24 15:21 81 24 99 04/19/24 15:06 81 22 98 O2 Flow Rate 04/20/24 14:25 2 04/20/24 13:09 2 04/20/24 13:01 04/20/24 12:54 04/20/24 12:00 04/20/24 12:00 04/20/24 11:00 04/20/24 10:06 04/20/24 09:00 04/20/24 09:00 04/20/24 08:12 04/20/24 08:00 04/20/24 08:00 04/20/24 07:57 04/20/24 07:00 04/20/24 07:00 2 04/20/24 04:01 04/20/24 04:00 2 04/20/24 04:00 04/20/24 03:01 04/20/24 03:00 2 04/20/24 03:00 04/20/24 02:00 2 04/20/24 02:00 04/20/24 02:00 04/20/24 01:00 2 04/20/24 01:00 04/20/24 01:00 04/20/24 00:06 04/20/24 00:00 2 04/20/24 00:00 04/19/24 23:00 2 04/19/24 23:00 04/19/24 23:00 04/19/24 22:06 04/19/24 22:00 2 04/19/24 22:00 04/19/24 21:48 04/19/24 21:09 04/19/24 21:00 2 04/19/24 21:00 04/19/24 20:54 04/19/24 20:15 04/19/24 20:00 2 04/19/24 20:00 04/19/24 19:57 04/19/24 19:09 04/19/24 19:00 2 04/19/24 19:00 04/19/24 18:51 04/19/24 18:15 04/19/24 18:00 04/19/24 17:45 04/19/24 17:30 04/19/24 17:09 04/19/24 16:45 04/19/24 16:00 04/19/24 16:00 04/19/24 16:00 04/19/24 15:39 04/19/24 15:22 04/19/24 15:21 04/19/24 15:06 Cardiovascular + regular rate and + regular rhythm Respiratory + respiratory effort normal Pre-Sedation Airway Assessment Smoking Status: Former smoker Short, Thick Neck: Yes Thyromental Distance: < 3.5 Finger Breadths Oral Cavity: + WNL Mallampati Class: III ASA: ASA3 NPO Status Date of Last Intake of Fluids: 04/20/24 Date of Last Intake of Solid Food: 04/19/24 Procedure Planning Contraindications for Sedation: none Current Medications Reviewed: Yes Notes The planned sedation has been discussed with the patient. Informed Consent was obtained. I have identified the patient, determined the appropriateness of sedation and have assessed the patient immediately prior to the procedure. All medicine(s) and interventions are by my order.
[2024-04-20] MEDS: LIDOCAINE 1% LOCAL 20 ML VIAL ONE (15:35)
[2024-04-20] MEDS: VANCOMYCIN HCL 1000MG/20ML VIAL ONE (15:35)
[2024-04-20] MEDS: BUPIVACAINE 0.25% PF 30 ML VIAL ONE (15:35)
[2024-04-20] MEDS: WATER, STERILE FOR INJ 10 ML VIAL ONE (15:36)
[2024-04-20] MEDS: ceFAZolin 330 MG/ML 1 GM VIAL ONE (15:36)
[2024-04-20] MEDS: fentaNYL citrate PF 100 MCG/2 ML VIAL ONE (16:21)
[2024-04-20] MEDS: MIDAZOLAM HCL 5 MG/ML 1 ML VIAL ONE (16:22)
--- NOTE | 2024-04-20 16:31 | Post Anesthesia Assessment ---
Date of Service April 20, 2024 Post Sedation Assessment Vital Signs Temp Pulse Pulse Resp BP Pulse Ox O2 Del Method 04/20/24 14:25 69 16 96 Nasal Cannula 04/20/24 14:03 79 21 98 04/20/24 14:00 153/86 H 04/20/24 13:57 79 18 98 04/20/24 13:09 81 16 99 Nasal Cannula 04/20/24 13:01 151/66 H 04/20/24 12:54 79 18 95 04/20/24 12:00 82 20 91 04/20/24 12:00 159/71 H 04/20/24 11:00 80 18 150/69 H 90 Room Air 04/20/24 10:06 82 19 98 04/20/24 09:00 82 18 98 04/20/24 09:00 163/72 H 04/20/24 08:12 78 19 96 04/20/24 08:00 166/66 H 04/20/24 08:00 36.7 C 04/20/24 07:57 80 17 96 04/20/24 07:00 158/103 H 04/20/24 07:00 80 18 158/103 H 98 Nasal Cannula 04/20/24 04:01 151/81 H 04/20/24 04:00 36.6 C Nasal Cannula 04/20/24 04:00 82 19 98 04/20/24 03:01 141/82 H 04/20/24 03:00 36.7 C Nasal Cannula 04/20/24 03:00 80 17 98 04/20/24 02:00 36.6 C Nasal Cannula 04/20/24 02:00 80 18 97 04/20/24 02:00 151/88 H 04/20/24 01:00 36.7 C Nasal Cannula 04/20/24 01:00 161/63 H 04/20/24 01:00 81 17 99 04/20/24 00:06 80 17 97 04/20/24 00:00 36.9 C Nasal Cannula 04/20/24 00:00 81 04/19/24 23:00 36.5 C Nasal Cannula 04/19/24 23:00 80 18 99 04/19/24 23:00 144/87 H 04/19/24 22:06 80 16 99 04/19/24 22:00 36.8 C Nasal Cannula 04/19/24 22:00 156/78 H 04/19/24 21:48 80 18 99 04/19/24 21:09 80 30 H 100 04/19/24 21:00 36.7 C Nasal Cannula 04/19/24 21:00 165/74 H 04/19/24 20:54 80 24 98 04/19/24 20:15 80 18 99 04/19/24 20:00 36.6 C Nasal Cannula 04/19/24 20:00 141/119 H 04/19/24 19:57 80 20 99 04/19/24 19:09 82 16 99 04/19/24 19:00 36.8 C Nasal Cannula 04/19/24 19:00 159/71 H 04/19/24 18:51 80 13 99 04/19/24 18:15 80 12 99 04/19/24 18:00 155/67 H 04/19/24 17:45 80 17 96 04/19/24 17:30 80 15 99 04/19/24 17:09 80 23 147/63 H 99 04/19/24 16:45 80 22 97 O2 Flow Rate 04/20/24 14:25 2 04/20/24 14:03 04/20/24 14:00 04/20/24 13:57 04/20/24 13:09 2 04/20/24 13:01 04/20/24 12:54 04/20/24 12:00 04/20/24 12:00 04/20/24 11:00 04/20/24 10:06 04/20/24 09:00 04/20/24 09:00 04/20/24 08:12 04/20/24 08:00 04/20/24 08:00 04/20/24 07:57 04/20/24 07:00 04/20/24 07:00 2 04/20/24 04:01 04/20/24 04:00 2 04/20/24 04:00 04/20/24 03:01 04/20/24 03:00 2 04/20/24 03:00 04/20/24 02:00 2 04/20/24 02:00 04/20/24 02:00 04/20/24 01:00 2 04/20/24 01:00 04/20/24 01:00 04/20/24 00:06 04/20/24 00:00 2 04/20/24 00:00 04/19/24 23:00 2 04/19/24 23:00 04/19/24 23:00 04/19/24 22:06 04/19/24 22:00 2 04/19/24 22:00 04/19/24 21:48 04/19/24 21:09 04/19/24 21:00 2 04/19/24 21:00 04/19/24 20:54 04/19/24 20:15 04/19/24 20:00 2 04/19/24 20:00 04/19/24 19:57 04/19/24 19:09 04/19/24 19:00 2 04/19/24 19:00 04/19/24 18:51 04/19/24 18:15 04/19/24 18:00 04/19/24 17:45 04/19/24 17:30 04/19/24 17:09 04/19/24 16:45 Recovery Score Activity: Moves 4 extremities Respiration: Deep Breath/Cough Circulation: +/-20% PreAnes Value Consciousness: Arouseable (by name) Oxygen Saturation: O2 needed for >90% Discharge Sedation Level of Care: Fast Track Phase II Post Sedation Plan On clinical assessment, the patient appears to have tolerated the sedation witho ut complications. Patient is recovering as anticipated. Patient will continue to be monitored by nursing and may be discharged when sedation discharge criteria are met per below protocol. Upon Completions of procedure up to 15 minutes continue every 5 minute vital signs and the P.A.R. score; then discharge to a Phase I or Fast Track to Phase II per the following guidelines: * Discharge Patient to appropriate Phase II area if PAR is 8 or greater or return to pre- procedure baseline. The post - procedure orders will be as directed. * If PAR score is less than 8 or not return to pre-procedure baseline then patient will follow Phase I monitoring till PAR is reached for Phase II. The Phase I may be done in procedure room or may call to secure a Phase I area. * If naloxone or flumazenil are used for reversal, hold in Phase I for continued monitoring from when last reversal dose was given for a minimum of 60 minutes or longer pending the nurse and/or physician discretion of patient condition before discharge to Phase II. Please call the Sedation Physician to re-evaluate and complete post-note for discharge to Phase II area. Do NOT discharge from procedure sedation or Phase 1 until post- sedation evaluation note is complete by procedure /sedation MD Sedation Discharge Instructions to be given to the patient at discharge to home.
[2024-04-20] MEDS ORDERED: ACETAMINOPHEN 325 MG TAB PO PRN (16:32)
[2024-04-20] MEDS ORDERED: oxyCODONE HCL IR 5 MG TAB (IMMEDIATE RELEASE) PO PRN (16:32)
--- NOTE | 2024-04-20 16:32 | Electrophysiology Report ---
Date of Service April 20, 2024 Electrophysiology Procedure Electrophysiology Procedure Report Procedure performed: Implantation of dual-chamber permanent pacemaker with left bundle pacing lead Staff furniture refinisher: Faustino Zuniga MD Indication: The patient is a 79-year-old gentleman with a history of cardiac disease having previously undergone surgical revascularization and implantation of bioprosthetic aortic valve. He presented to our hospital after an episode of near syncope and discovery of complete heart block. A dual-chamber device was recommended due to symptomatic nonreversible AV node dysfunction. Procedure in detail: The patient was informed of the risks benefits and alternatives to the intended procedure and she wished to proceed. He was taken to the electrophysiology suite in a fasting state. A preoperative antibiotic had been administered. The patient was monitored electrocardiographically throughout today's procedure and conscious sedation was administered per protocol. The left upper pectoral area was prepped and draped in usual sterile fashion. This area was anesthetized using subcutaneous administration of a xylocaine solution. An incision was made at this site and carried down to the prepectoralis fascia using sharp dissection. Electrocautery was also employed for dissection as well as for hemostasis. A device pocket was fashioned tissues above the pectoralis muscle. Subsequent to this maneuver the left axillary vein was accessed using modified Seldinger technique. A sheath was placed over guidewire and used to facilitate passage of a guiding catheter for mapping of the interventricular septum. Once an appropriate location was identified a pacing lead was advanced into the interventricular septum until the appropriate electrophysiologic characteristics were obtained. LVAT was measured at 74 ms. At this point the guiding catheter was removed. The proximal portion of the lead was then sutured the prepectoralis fascia using nonabsorbable suture. A sheath was placed over the remaining guidewire and used to facilitate passage of a pacing lead to the right atrium under fluoroscopic guidance. Adequate sensing and threshold parameters were obtained prior to active fixation of this lead to the endocardial surface. The proximal portion of the leads were then sutured the prepectoral fascia using nonabsorbable suture. The device pocket was irrigated with antibiotic solution. The leads were then attached to the device. The device and leads were then placed in the pocket and pocket was closed in 3 layers of absorbable suture. Steri-Strips and sterile dressing were applied. The device was tested noninvasively prior to conclusion the procedure. The patient tolerated procedure well there no immediate complications. Equipment used: New pulse generator: Front End Assistant [employer]. Model number: [id number] serial number [id number] Right atrial lead: Front End Assistant [employer]. Model number: [id number] serial number [id number] Right ventricular lead: Front End Assistant [employer]. Model number: 3830 serial number [id number] Measured data: Right atrial lead: P waves measure 1.5 mV. Pacing threshold was 0.5 V at 0.4 ms with a pacing impedance of 456 ohms Right ventricular lead: There were no intrinsic R waves. Pacing threshold was 1.5 V at 0.4 ms with a pacing impedance of 931 ohms bipolar Impression: Successful implantation of dual-chamber permanent pacemaker with left bundle pacing lead [facility] Electrophysiology codes Pacing Procedure 1: Pacin Insert/Replace Pacer A & V PG Moderate Sedation Codes Moderate Sedation Codes Procedure 1: Sedation/Anesthesia: 98226 Mod Sedation by the same physician;Init15 Min Child Age 5 & Up Procedure 2: Sedation/Anesthesia: 01073 Mod Sedation by the same physician; Ea [id number] Minutes
--- NOTE | 2024-04-20 18:35 | XCELERA ---
[id number] [id number]
[2024-04-20] MEDS: ceFAZolin 1000MG 1,000 MG/7.5 ML SYR IV ONE (23:24)
[2024-04-21 05:07] LABS: Hematocrit (blood only) 39.2 % (42.0-52.0); Hemoglobin 12.4 g/dl (14.0-18.0); Mean Corpuscular Hemoglobin 29.2 pg (25.0-34.0); Mean Corpuscular Hgb Conc 31.6 g/dL (32.0-36.0); Mean Corpuscular Volume 92.2 fL (80.0-100.0); Mean Platelet Volume 10.3 fL (9.4-12.4); Platelet Count 196 K/uL (130-400); RDW Coefficient of Variation 12.3 % (11.5-14.5); RDW Standard Deviation 41.6 fL (36.4-46.3); Red Blood Count 4.25 M/uL (4.70-6.10); White Blood Count 9.97 K/ul (4.8-10.8)
[2024-04-21 05:20] LABS: BUN Creatinine Ratio 20.7 (10-20); Calcium 9.3 mg/dl (8.6-10.3); Creatinine Clr Calc Pharmacy 53.3 ml/min; Magnesium 1.8 mg/dl (1.7-2.4); Phosphorus 2.9 mg/dl (2.5-4.9); Potassium 4.6 mmol/L (3.5-5.1)
--- NOTE | 2024-04-21 05:20 | Electrocardiogram Report ---
Test Reason : Blood Pressure : */* mmHG Vent. Rate : 17 BPM Atrial Rate : 69 BPM P-R Int : * ms QRS Dur : 124 ms QT Int : 654 ms P-R-T Axes : * -83 46 degrees QTcB Int : 347 ms Sinus rhythm with complete heart block with ventricular escape complexes No previous ECGs available Confirmed by Orville Duran ([id number]) on 04/21/2024 5:19:46 AM Referred By: Confirmed By: Orville uDran
--- NOTE | 2024-04-21 05:25 | Electrocardiogram Report ---
Test Reason : Blood Pressure : */* mmHG Vent. Rate : 80 BPM Atrial Rate : 80 BPM P-R Int : * ms QRS Dur : 162 ms QT Int : 444 ms P-R-T Axes : * -82 98 degrees QTcB Int : 512 ms Ventricular-paced rhythm with ventricular complexes Right bundle branch block Left ventricular hypertrophy with repolarization abnormality Abnormal ECG When compared with ECG of 19-Apr-2024 10:49, Ventricular pacing is now present Vent. rate has increased by 63 bpm Confirmed by Orville Duran ([id number]) on 04/21/2024 5:24:50 AM Referred By: REFERRED SELF Confirmed By: Orville Duran
--- NOTE | 2024-04-21 07:25 | XRay Report ---
SEMIERECT AP AND LATERAL CHEST RADIOGRAPHS CLINICAL HISTORY: Pacemaker insertion. COMPARISON STUDY: Chest radiograph April 19, 2024. FINDINGS: This exam is mildly compromised given difficulty positioning. No pneumothorax is identified following placement of a left subclavian pacer. There are median sternotomy wires, mediastinal surgi dante clips, prosthetic cardiac valve and left atrial appendage occluder device. Moderate cardiomegaly is noted. There is mild interstitial thickening. No pleural effusion is identified. There is no conso lidation to suggest pneumonia. IMPRESSION: 1. No pneumothorax following placement of a left subclavian pacer. 2. Cardiomegaly with mild interstitial pulmonary edema. ACT 112: Negative or not required by law. Electronically signed by: Manish Jacinto M.D. 04/21/2024 7:23 AM
[2024-04-21] MEDS: MAGNESIUM SULFATE / D5W 1 GM/100 ML BAG IV SCH (07:32)
--- NOTE | 2024-04-21 09:06 | Cardiology Progress Note ---
Date of Service April 21, 2024 Assessment & Plan (1) Complete heart block: Plan: No intrinsic rhythm noted on device monitoring today. Successful implantation of dual-chamber Medtronic pacemaker yesterday without evident complication. (2) Coronary artery disease: Plan: No current symptoms suggestive of acute coronary syndrome. Continue aggressive secondary prevention with Plavix and rosuvastatin (3) Peripheral arterial occlusive disease: (4) Benign essential hypertension: Plan: Blood pressure mildly elevated. Will resume metoprolol (5) Atherogenic dyslipidemia: Plan: Continue rosuvastatin (6) S/P AVR (aortic valve replacement): Plan: Normal function on echocardiogram performed in March. (7) PVCs (premature ventricular contractions): Plan: He is currently having very frequent PVCs. He was in bigeminy for a good period of time while the temporary pacemaker was in place. Unclear if this is some form of triggered activity from pacing. Hopefully with time and resumption of his beta blockade will see fewer PVCs. Plan He would seem stable for discharge from a cardiac standpoint. He can resume his usual medications including metoprolol succinate. I did notify his primary grey washer at [facility] of his condition and the procedure p erformed yesterday. However, he should have a wound evaluation within the next week and we will need to follow-up in device clinic close to home. No lifting left arm above shoulder for 6 weeks. Keep the wound dry and Steri-Strips intact for at least 5 days. Admission and Anticipated Discharge Date Admission Date: April 19, 2024 Subjective This morning patient claimed he feeling well. Only minor discomfort at the device implant site in the left pectoral area. He has been ambulatory around his room without significant dizziness or other complaints. Physical Exam Physical Exam: Alert. Oriented. Answered all questions appropriately Sclerae anicteric Normal respiratory effort Well-healed device implant site without hematoma, significant ecchymosis or drainage. No erythema. Results & Data Vital Signs (Past 12 Hours) Vital Signs Temp Pulse Resp BP Pulse Ox O2 Del Method O2 Flow Rate 04/21/24 08:00 85 22 93 04/21/24 08:00 36.8 C 04/21/24 07:48 86 20 94 04/21/24 07:28 161/70 H 04/21/24 07:28 161/70 H 04/21/24 07:18 84 19 92 Room Air 04/21/24 07:00 88 19 90 04/21/24 06:03 84 12 98 04/21/24 06:02 175/67 H 04/21/24 05:45 83 18 94 04/21/24 05:18 85 17 97 04/21/24 05:00 164/75 H 04/21/24 04:45 83 18 97 04/21/24 04:33 36.9 C 82 18 98 04/21/24 04:31 158/60 H 04/21/24 04:31 158/60 H 04/21/24 04:27 86 15 98 04/21/24 04:00 153/67 H 04/21/24 04:00 153/67 H 04/21/24 04:00 77 20 97 04/21/24 03:30 148/81 H 04/21/24 03:24 78 16 98 04/21/24 03:06 80 16 96 04/21/24 03:00 147/69 H 04/21/24 02:57 74 21 93 04/21/24 02:33 74 14 98 04/21/24 02:30 161/66 H 04/21/24 02:24 78 19 97 04/21/24 02:12 78 14 95 04/21/24 02:00 141/82 H 04/21/24 02:00 141/82 H 04/21/24 01:51 77 21 95 04/21/24 01:30 77 13 97 04/21/24 01:30 176/75 H 04/21/24 01:30 176/75 H 04/21/24 01:30 176/75 H 04/21/24 01:00 178/73 H 04/21/24 01:00 74 18 97 04/21/24 00:31 161/70 H 04/21/24 00:31 161/70 H 04/21/24 00:27 82 19 93 04/21/24 00:00 70 19 96 04/20/24 23:59 78 04/20/24 23:33 75 17 98 04/20/24 23:30 170/64 H Nasal Cannula 2 04/20/24 23:30 170/64 H Nasal Cannula 2 04/20/24 23:24 73 15 97 04/20/24 23:00 37.4 C 78 20 98 04/20/24 23:00 157/65 H 10/21/24 23:00 157/65 H 04/20/24 22:31 144/83 H 04/20/24 22:31 144/83 H 04/20/24 22:15 89 14 98 04/20/24 22:02 146/97 H 04/20/24 22:02 146/97 H 04/20/24 22:00 82 6 L 04/20/24 21:31 151/58 H 04/20/24 21:30 79 17 98 Nasal Cannula 2 Laboratory Results Abnormal Lab Results 04/19/24 04/20/24 04/20/24 11:15 08:05 12:09 WBC RBC Hgb Hct MCV MCH MCHC RDW Std Deviation RDW Coeff of Carol Plt Count MPV Blood Smear Review Sodium Potassium Chloride Carbon Dioxide Anion Gap BUN Creatinine Est Cr Clr Drug Dosing eGFR BUN/Creatinine Ratio Glucose POC Glucose 109 H Calcium Phosphorus Magnesium Troponin I High Sens 929.9 H* 04/20/24 04/20/24 04/21/24 17:07 20:07 04:27 WBC 9.97 RBC 4.25 L Hgb 12.4 L Hct 39.2 L MCV 92.2 MCH 29.2 MCHC 31.6 L RDW Std Deviation 41.6 RDW Coeff of Carol 12.3 Plt Count 196 MPV 10.3 Blood Smear Review Sodium 137 Potassium 4.6 Chloride 102 Carbon Dioxide 29 Anion Gap 6 BUN 24 H Creatinine 1.16 Est Cr Clr Drug Dosing 53.3 eGFR 64.87 BUN/Creatinine Ratio 20.7 H Glucose 119 H POC Glucose 119 H 241 H Calcium 9.3 Phosphorus 2.9 D Magnesium 1.8 Troponin I High Sens Diagnostic Findings I reviewed the chest x-ray obtained this morning. No pneumothorax. Stable lead position. Device interrogation performed this morning revealed good lead function. Normal device function.
--- NOTE | 2024-04-21 09:15 | Discharge Summary ---
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 Required administration of epinephrine, and identified to have a complete heart block, and was taken emergently to the [facility]. Temporary pacemaker placed 04/19. Permanent dual-chamber Medtronic pacemaker placed 04/21. - EKG- 04/19 HR 17, complete heart block; 04/20 HR 80, ventricular paced complexes, LAD, RBBB, LVH; 04/21 HR 83 atrial sensed ventricular paced rhythm with frequent PVCs. - Echo- EF >70%, moderate concentric LVH, moderate LAD, bioprosthetic AV, mild MS, mild to moderate MR, normal right ventricular systolic pressure. - Lyme screen negative - CXR 04/21- No pneumothorax; Placement of left subclavian pacer; cardiomegaly with mild interstitial pulmonary edema. - Continue's to have paced rhythm on cardiac monitoring; normal rate and rhythm on exam. - Cardiology consulted; medically stable for discharge 04/21: Patient seen sitting at bedside during time of visit. States that he feels well, and is ready to go home. Reports no chest pain, shortness of breath, palpitations, fever, or pain at procedural site. Telemetry: Paced rhythm, heart rate 80s. (2) Coronary artery disease: Patient has a history of recent revascularization; CABG x 2 + bioprosthetic aortic valve repair (08/2023). On Plavix and metoprolol at home - Continue rosuvastatin 20 mg for risk factor reduction - Continue metoprolol 25 mg p.o. twice daily - Troponin up trended to 929 during stay; recent cardiac procedure as well as profound bradycardia rather than ACS; no chest pain; EKG without ST elevation or depression. (3) Diabetes: On home Glipizide, Pioglitazone, and metformin - Continue at home medications as prescribed Plan Continue Protonix 40 mg Abnormal thyroid function on labs- TSH 10.6, T4 WNL 0.92; outpatient follow-up recommended Dispo: Medically stable for discharge, discharge today VTE prophylaxis: Heparin Code: Full Complete patient education of current condition and management was provided. All questions that the patient asked were answered, and the patient demonstrated complete understanding. Admission HPI Per Admitting Provider Patient presents with a concern for syncope and he actually lost consciousness briefly in emergency department associated with a brief period of apnea and incontinence of stool. Patient reportedly was feeling poorly and he asked his family to drive him to the hospital where he may have passed out along the way. He has recently had a CABG x 2 and bioprosthetic arctic valve repair at [facility] in August 2023. He follows with Dr. Sahu at [facility]. Currently the patient was revived with an amp of epinephrine. He says he feels better. He denies having any chest pressure or squeezing during the event. He can recall the event and said that his vision was becoming Dim prior to it occurring. The patient is in complete heart block in the emergency department and was taken emergently to the [facility] Patient is tentatively slated to be ICU admission for temporary pacemaker. Admission Exam Per Admitting Provider The patient appeared well nourished and normally developed. Vital signs as documented. Head exam is normocephalic atraumatic Neck is without JVD, thyromegaly, or carotid bruits. Lungs are clear to auscultation, no focal loss of breath sounds Cardiac exam, Rhythm is regular.. Systolic ejection murmur. Well-healed sternotomy scar. Abdominal exam reveals normal bowel sounds, soft non tender, no masses Extremities are nonedematous and both pedal pulses are present Neurologic exam is alert and oriented, no focal loss of strength or sensation Skin is without bruises or rashes Psychologically is without concerns for anxiety or depression. Discharge Exam General: No acute distress, well developed. Skin: Warm and dry, without rashes or lesions. No cyanosis or clubbing Head: Normocephalic, atraumatic Eyes: PERRL, conjunctivae clear, sclera non-icteric Neck: Supple, no LAD; no JVD Cardio: RRR; No G/R; slight systolic murmur noted; implant site without er ythema/edema/hematoma/drainage. Resp: Chest wall symmetric, normal respiratory effort; No respiratory distress, Lungs CTA in all lobes bilaterally, no wheezes, rales, or rhonchi Abdomen: Soft, symmetric, nontender; No masses or hepatosplenomegaly MSK: No deformities; Pulses palpable and equal Neuro: Awake, alert Psych: Appropriate mood and affect; good judgement and insight. Discharge Plan Discharge Items Patient Disposition: Home - Self-Care Reason For Visit: TEMP PACER Discharge Diagnosis: Complete Heart Block requiring Pacemaker Placement Activity: As commented below Lifting: No more than 10 pounds Lifting Comment: No lifting left arm above shoulder behind neck for 6 weeks Bathing: Keep incision dry Bathing Comment: Keep wound dry and Steri-Strips intact until follow-up. Non-emergency contact: Primary Care Provider and [facility] To Door Sales Representative Call non-emergency contact if: you have any medication questions, your symptoms worsen, your pain is not controlled, your pain is worsening, your pain is unusual for you and your pain is concerning for you Follow-up/Referrals: Faustino Zuniga MD [Physician] - (Cardiology will call Pt to schedule follow up) PCPLAURA [Physician] - (Please follow up with your PCP in your hometown) Diet: Carb Consistent or DM2 and Heart Healthy Addtl Attending Provider Instructions: You were diagnosed and treated for a heart block that resulted in the insertion of a cardiac pacemaker. The specific pacer that was implanted was the dual- chamber Medtronic pacemaker. During your hospital stay, we monitored your blood count as well your electrolytes, kidneys, liver, and cardiac function. Your cardiac enzymes (troponin) was elevated during your stay, however this was attributed to the episode of heart block and cardiac procedure. Imaging of your chest revealed no acute disease. All labs were stable and at baseline at the time of discharge. Please continue on at home medications to include: Plavix 75 mg daily, glipizide 10 mg twice a day, metformin 1,000 mg twice daily, metoprolol 25 mg twice daily, rosuvastatin 20 daily, and pioglitazone 30 mg daily. Labs did reveal abnormal thyroid functions to include an elevated TSH of 10.6, but a normal T4 at 0.92. May be indicative of ongoing thyroid disorder, however would recommend outpatient follow-up with PCP. Please follow-up for wound evaluation within the next week. Follow lifting instructions to include no lifting the left arm above the shoulder x 6 weeks. Keep your wound dry with Steri-Strips intact for at least 5 days. Please follow-up with regulator operator within the next week. If you notice chest pain, palpitation, sudden/severe shortness of breath, worsening of symptoms, or abnormal drainage/pain at wound site, please call your PCP or regulator operator for advice or return to the ED immediately. Pending Studies at Discharge: No Stand-Alone Forms: My [facility], Smoking Cessation Medications and DC Order Prescriptions: Continued glipizide 10 mg tablet extended release 24hr 10 mg PO BID clopidogrel 75 mg tablet 75 mg PO DAILY metformin 1,000 mg tablet 1,000 mg PO BID metoprolol succinate 25 mg tablet extended release 24 hr 25 mg PO BID pioglitazone 30 mg tablet 30 mg PO DAILY rosuvastatin 20 mg tablet 20 mg PO DAILY Discharge Orders: Discharge Order (Routine); Ordered 04/21/24 Ordered By: Lennie Rao/Other Patient Handouts: Pacemakers, Managing Type 2 Diabetes, Pacemaker Implant Dc, Special Foot Care for Diabetes Admission Data Admit Date/Time: 04/19/24 12:16 Attending Provider: Lennie Elliott Admit Provider: Arnulfo Robbins Primary Care Provider: Del Jackson Other Providers: Reuben More; Renard Dominguez; Max Westbrook; Chemo Alvarado; Faustino Zuniga Other Interventions: Discharge Summary Assessment (RN) Last Done: 04/21/24 10:39 Hospital Stay Data Consultations 04/19/24 11:23 ED Decision to Admit Stat 04/19/24 11:26 Consult Cardiology Stat 04/19/24 13:38 Consult [facility] Routine Procedures Performed Operation Date: 04/20/24 15:00 Actual Procedures p Pacer with A/V Leads (Dual) - Faustino Zuniga MD Diagnostic Imagining Performed 04/19/24 11:31 CL Cath Imgs for PACS use only Stat 04/19/24 14:00 Fluoro pacemaker [FL pacemaker insert] Routine 04/20/24 15:30 EP Lab Images for PACS ONCE Pending Results Patient Have Any Pending Studies at Discharge: No Discharge Instructions Given to Patient (Per Discharging Provider) You were diagnosed and treated for a heart block that resulted in the insertion of a cardiac pacemaker. The specific pacer that was implanted was the dual- chamber Medtronic pacemaker. During your hospital stay, we monitored your blood count as well your electrolytes, kidneys, liver, and cardiac function. Your cardiac enzymes (troponin) was elevated during your stay, however this was attributed to the episode of heart block and cardiac procedure. Imaging of your chest revealed no acute disease. All labs were stable and at baseline at the time of discharge. Please continue on at home medications to include: Plavix 75 mg daily, glipizide 10 mg twice a day, metformin 1,000 mg twice daily, metoprolol 25 mg twice daily, rosuvastatin 20 daily, and pioglitazone 30 mg daily. Labs did reveal abnormal thyroid functions to include an elevated TSH of 10.6, but a normal T4 at 0.92. May be indicative of ongoing thyroid disorder, however would recommend outpatient follow-up with PCP. Please follow-up for wound evaluation within the next week. Follow lifting instructions to include no lifting the left arm above the shoulder x 6 weeks. Keep your wound dry with Steri-Strips intact for at least 5 days. Please follow-up with regulator operator within the next week. If you notice chest pain, palpitation, sudden/severe shortness of breath, worsening of symptoms, or abnormal drainage/pain at wound site, please call your PCP or regulator operator for advice or return to the ED immediately. Supervising Physician Co-Signing Physician Notes REGIS Collazo Note: I personally saw and examined the patient. I verified all elena points and agree with REGIS Dolan with the following exceptions and/or additions: S-Pt feeling well, some mild pain at pacer site, not lightheaded. Ambulated around the room. Discussed care with Cardiology-stable for discharge O- Vitals reviewed Gen: [AAOx3, NAD] HEENT: [anicteric sclerae, EOMI] CV: [RRR with ectopy no mgr nl S1S2] Pulm: [CTAB no wcr] Ext: [no edema] Skin: [no rashes, warm/dry, left anterior chest with pacer incision with steri strips in palce, no drainge, no erythema or bleeding] CBC, BMP reviewed A/P-79yo male here with CHB now s/p transvenous pacer followed by PPM Lyme titer neg, TSH elevated but not likely contributing Stable for dc to home with close Cardiology and PCP f/u. Needs TSH repeated as outpt Total Time Total Time Spent Total Time Spent (In Minutes): 35 Total Time Includes: Examination of the Patient, Discharge Planning, Medication Reconciliation, Communication With Other Providers and Other Coding [place] [address] INP/OBS DISCH >30 MIN Patient Type Established Medical Decision Making Moderate Complexity Diagnoses Complete heart block I44.2 Coronary artery disease I25.10 Diabetes E11.9 Time Spent (min) 35
--- NOTE | 2024-04-23 05:48 | Electrocardiogram Report ---
Test Reason : Blood Pressure : */* mmHG Vent. Rate : 83 BPM Atrial Rate : 83 BPM P-R Int : 146 ms QRS Dur : 126 ms QT Int : 400 ms P-R-T Axes : 72 79 256 degrees QTcB Int : 470 ms Atrial-sensed ventricular-paced rhythm Abnormal ECG When compared with ECG of 20-Apr-2024 04:38, Premature ventricular complexes are no longer Present Confirmed by Orville Duran ([id number]) on 04/23/2024 5:48:00 AM Referred By: REFERRED SELF Confirmed By: Orville Duran
== END 2024-04-21 12:29 | disposition home or self-care (01) | DRG 243 ==
LOC: ED 10:29 → CC 11:59 → 1E 12:16 → SUATTDRO 12:16
PROC: CLB.TTP (2024-04-19 11:45)